=== PATIENT | female | born 1975 | race African-American/Black ===

== ENCOUNTER 2022-02-28 11:30 | Observation (INO) | payer OTHER ==
[2022-02-28] MEDS ORDERED: NITROGLYCERIN SL TABS 0.4 MG TAB SUBLINGUAL STA (11:41)
[2022-02-28] MEDS ORDERED: SODIUM CHLORIDE 0.9% 500 ML 500 ML IV STA (11:42)
--- NOTE | 2022-02-28 11:58 | XR ---
EXAMINATION TYPE: XR chest 1V DATE OF EXAM: 02/28/2022 COMPARISON: NONE HISTORY: Chest pain TECHNIQUE: Single frontal view of the chest is obtained. FINDINGS: There is left lower lobe infiltrate noted. Correlate for underlying pneumonia. Possible small effusio n noted as well. The cardiac silhouette size is within normal limits. The osseous structures are intact. IMPRESSION: 1. Correlate for left lower lobe infiltrate.
[2022-02-28 12:32] LABS: Basophils # (A) 0.1 k/uL (0-0.2); Basophils % (A) 0 %; Eosinophils # (A) 0.2 k/uL (0-0.7); Eosinophils % (A) 1 %; HGB 11.7 gm/dL (11.4-16.0); Hypochromasia Moderate; Lymphocytes # (A) 1.6 k/uL (1.0-4.8); Lymphocytes % (A) 8 %; MCV 93.2 fL (80.0-100.0); Mean Platelet Volume 6.8; Monocytes # (A) 1.2 k/uL (0-1.0); Monocytes % (A) 5 %; Neutrophils # (A) 18.1 k/uL (1.3-7.7); Neutrophils % (A) 85 %; Platelet Count 432 k/uL (150-450); RBC 4.19 m/uL (3.80-5.40); RDW 14.8 % (11.5-15.5); WBC 21.2 k/uL (3.8-10.6)
[2022-02-28 12:50] LABS: Prothrombin Time 10.4 sec (9.0-12.0)
[2022-02-28 13:18] LABS: ALT 21 U/L (4-34); African American GFR (CKD) >90 (>60 ml/min/1.73 sqM); Albumin 3.9 g/dL (3.5-5.0); Anion Gap 10 mmol/L; Blood Urea Nitrogen 11 mg/dL (7-17); Calcium 8.9 mg/dL (8.4-10.2); Carbon Dioxide 24 mmol/L (22-30); Chloride 98 mmol/L (98-107); Glucose 88 mg/dL (74-99); Non-African American GFR(CKD) >90 (>60 ml/min/1.73 sqM); Sodium 132 mmol/L (137-145); Total Bilirubin 0.9 mg/dL (0.2-1.3); Total Protein 6.8 g/dL (6.3-8.2)
[2022-02-28] MEDS ORDERED: MORPHINE SULFATE 4 MG/ML SYRINGE IVP STA (13:24)
[2022-02-28 13:30] LABS: AST 26 U/L (14-36); Magnesium 1.9 mg/dL (1.6-2.3); Potassium 4.8 mmol/L (3.5-5.1)
[2022-02-28 13:31] LABS: Alkaline Phosphatase 67 U/L (38-126)
--- NOTE | 2022-02-28 13:31 | ED ---
General Adult HPI - General Chief complaint: Chest Pain Stated complaint: Chest pain Time Seen by Provider: 02/28/22 11:32 Source: patient, EMS, RN notes reviewed, old records reviewed Mode of arrival: EMS Limitations: no limitations - History of Present Illness Initial comments: Patient is a 47-year-old female who presents emergency department with rec urrence of a somewhat chronic chest pain. Patient states that she experienced this chest pain previously last month. Was admitted to [facility] and received multiple workups. Ultimately diagnosed with pneumonia and discharged home. States she had a cardiac echo at that time and they looked for a blood clot in her lung, all of which were negative. States the pain mostly when away, however last night she began experiencing similar pain. It is achy in nature, located over the left side of her chest with some mild radiation to left shoulder, all chronic for the patient and typical for when she expenses pain previously. She received multiple nitroglycerin tablets from EMS, she states it was initially an 8 out of 10 and it remains an 8 out of 10. States it is been like this mostly since the middle of the night. Denies any associated shortness of breath, cough, nausea, vomiting, sick contacts. His no fevers. Has no other acute complaints at this time. Presents over concern for her recurrence of her chest pain that was thoroughly worked up in the outpatient facility last month. - Related Data Home Medications Medication Instructions Recorded Confirmed oxyCODONE HCL/ACETAMINOPHEN 1 tab PO TID PRN 02/28/22 02/28/22 [Percocet 10-325 mg] Allergies Allergy/AdvReac Type Severity Reaction Status Date / Time codeine AdvReac Nausea & Verified 02/28/22 12:31 Vomiting Review of Systems ROS Statement: Those systems with pertinent positive or pertinent negative responses have been documented in the HPI. Review of Systems: CONST: Denies fever EYES: Denies blurry vision ENT: Denies nasal congestion C/V: Endorses chest pain RESP: Denies shortness of breath GI: Denies abdominal pain : Denies dysuria SKIN: Denies rash. MSK: Denies joint pain. NEURO: Denies headache ROS Other: All systems not noted in ROS Statement are negative. Past Medical History Past Medical History: Asthma Additional Past Medical History / Comment(s): Asthma, pneumonia Additional Past Surgical History / Comment(s): Hernia surgery, gastric sleeve, tummy tuck, Past Psychological History: No Psychological Hx Reported Smoking Status: Never smoker Past Alcohol Use History: Occasional Past Drug Use History: None Reported General Exam - General Exam Comments Initial Comments: General: Appears in no acute distress. HEAD: Normal with no signs of head trauma. EYES: PERRLA, EOMI, conjunctiva normal, no discharge. ENT: Hearing grossly intact, normal oropharynx. RESPIRATORY: Clear breath sounds bilaterally. No wheezes, rales, or rhonchi. C/V: Tachycardic with a regular rhythm. S1 and S2 auscultated, no edema, peripheral pulses 2+ and intact throughout. Chest pain nonreproducible on palpation. ABD: Abd is soft, nontender, nondistended EXT: Normal range of motion, no obvious deformity SKIN: No rashes or lesions observed on exposed skin. NEURO: Alert and oriented x 4. Cranial nerves II-XII intact. No focal sensory or strength deficits. 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 She was eventually diagnosed with left-sided pneumonia. Sent home on steroids. States her pain did improve, however it returned last night. I discussed with her I would like to obtain cardiac workup. She is a history of elevated d-dimer, and I would like to obtain a CT PE to rule out pulmonary embolism over concern for her tachycardia and her chest pain. She was in agreement with this plan. Patient received 2 nitro prior to arrival and chest pain is unchanged. Third nitro was administered and chest pain also remains unchanged at this time. Aspirin was administered en route, 324mg. She was in agreement with this plan. Vital signs are within normal limits. EKG shows no signs of acute ischemia, shows benign early repol.Chest x-ray shows findings concerning for a left lower lobe pneumonia. Laboratory studies are remarkable for leukocytosis of 21, likely secondary to recent steroid use as she stopped 1 or 2 days ago. Troponin is undetectable. Remainder of the labs are unremarkable.CT angiogram of the chest showed no pulmonary embolism. There are bilateral pleural effusions as well as possible small left lower lobe infiltrate. Is also small pericardial effusion. On reevaluation, patient is improved. Chest pain is nearly resolved following morphine administration. I did discuss with her the results of her laboratory studies and imaging. Like to admitted to the hospital for further monitoring. We were able to obtain records from the outside facility, [facility] and EKG is similar to that presentation as well. She was in agreement this plan. Vital signs remained within normal limits. Cardiology will be consulted.Patient has no symptoms of pneumonia. Is not short of breath. Is not coughing. No fevers. I will not treat within about accept this time. Leukocytosis is likely secondary to her recent steroid usage. We'll continue to monitor. I spoke with observation on-call, Dr. Sosa was in agreement with the plan and accepted the patient. Patient was admitted to observation telemetry in stable condition. - Lab Data Result diagrams: 02/28/22 12:11 02/28/22 12:55 Lab Results 02/28/22 02/28/22 02/28/22 Range/Units 12:11 12:11 12:11 WBC 21.2 H (3.8-10.6) k/uL RBC 4.19 (3.80-5.40) m/uL Hgb 11.7 (11.4-16.0) gm/dL Hct 39.0 (34.0-46.0) % MCV 93.2 (80.0-100.0) fL MCH 28.0 (25.0-35.0) pg MCHC 30.0 L (31.0-37.0) g/dL RDW 14.8 (11.5-15.5) % Plt Count 432 (150-450) k/uL MPV 6.8 Neutrophils % 85 % Lymphocytes % 8 % Monocytes % 5 % Eosinophils % 1 % Basophils % 0 % Neutrophils # 18.1 H (1.3-7.7) k/uL Lymphocytes # 1.6 (1.0-4.8) k/uL Monocytes # 1.2 H (0-1.0) k/uL Eosinophils # 0.2 (0-0.7) k/uL Basophils # 0.1 (0-0.2) k/uL Hypochromasia Moderate PT 10.4 (9.0-12.0) sec INR 1.0 (<1.2) APTT 24.0 (22.0-30.0) sec D-Dimer 0.70 H (<0.60) mg/L FEU Sodium (137-145) mmol/L Potassium (3.5-5.1) mmol/L Chloride (98-107) mmol/L Carbon Dioxide (22-30) mmol/L Anion Gap mmol/L BUN (7-17) mg/dL Creatinine (0.52-1.04) mg/dL Est GFR (CKD-EPI)AfAm (>60 ml/min/1.73 sqM) Est GFR (CKD-EPI)NonAf (>60 ml/min/1.73 sqM) Glucose (74-99) mg/dL Calcium (8.4-10.2) mg/dL Magnesium (1.6-2.3) mg/dL Total Bilirubin (0.2-1.3) mg/dL AST (14-36) U/L ALT (4-34) U/L Alkaline Phosphatase (38-126) U/L Troponin I (0.000-0.034) ng/mL Total Protein (6.3-8.2) g/dL Albumin (3.5-5.0) g/dL 02/28/22 02/28/22 Range/Units 12:55 12:55 WBC (3.8-10.6) k/uL RBC (3.80-5.40) m/uL Hgb (11.4-16.0) gm/dL Hct (34.0-46.0) % MCV (80.0-100.0) fL MCH (25.0-35.0) pg MCHC (31.0-37.0) g/dL RDW (11.5-15.5) % Plt Count (150-450) k/uL MPV Neutrophils % % Lymphocytes % % Monocytes % % Eosinophils % % Basophils % % Neutrophils # (1.3-7.7) k/uL Lymphocytes # (1.0-4.8) k/uL Monocytes # (0-1.0) k/uL Eosinophils # (0-0.7) k/uL Basophils # (0-0.2) k/uL Hypochromasia PT (9.0-12.0) sec INR (<1.2) APTT (22.0-30.0) sec D-Dimer (<0.60) mg/L FEU Sodium 132 L (137-145) mmol/L Potassium 4.8 (3.5-5.1) mmol/L Chloride 98 (98-107) mmol/L Carbon Dioxide 24 (22-30) mmol/L Anion Gap 10 mmol/L BUN 11 (7-17) mg/dL Creatinine 0.62 (0.52-1.04) mg/dL Est GFR (CKD-EPI)AfAm >90 (>60 ml/min/1.73 sqM) Est GFR (CKD-EPI)NonAf >90 (>60 ml/min/1.73 sqM) Glucose 88 (74-99) mg/dL Calcium 8.9 (8.4-10.2) mg/dL Magnesium 1.9 (1.6-2.3) mg/dL Total Bilirubin 0.9 (0.2-1.3) mg/dL AST 26 (14-36) U/L ALT 21 (4-34) U/L Alkaline Phosphatase 67 (38-126) U/L Troponin I <0.012 (0.000-0.034) ng/mL Total Protein 6.8 (6.3-8.2) g/dL Albumin 3.9 (3.5-5.0) g/dL - EKG Data -: EKG Interpreted by Me EKG Comments: 12-lead Electrocardiogram Interpretation Note EKG was reviewed and interpreted by myself. 12-lead ECG performed at 1131 is interpreted by me as revealing sinus tachycardia at a rate of 114 beats per minute. [place] is normal. VA interval is 112 ms, QRS duration is 76 ms, QTc is 377 ms.. Very subtle J-point elevation noted in V2, V3. Likely benign early re-pole. No reciprocal changes appreciated.. R wave progression across the precordium was satisfactory. By my interpretation this EKG is non-diagnostic for acute ischemia. No prior EKG for comparison. Disposition Clinical Impression: Chest pain, Pleural effusion Disposition: ADMITTED IP TO THIS HOSP Condition: Stable Referrals: None,Stated [Primary Care Provider] - 1-2 days Time of Disposition: 13:35
--- NOTE | 2022-02-28 13:44 | CT ---
EXAMINATION TYPE: CT chest angio for PE DATE OF EXAM: 02/28/2022 COMPARISON: HISTORY: chest pain CT DLP: 248.7 mGycm CONTRAST: CT chest with contrast and 3D reconstruction with MIP imaging is performed with IV Contrast, patient injected with 55cc mL of Isovue 370. Contrast-enhanced CT of the chest was performed through the course of the pulmonary arteries with arya g and mediastinal window settings submitted. 3D reconstruction with MIP imaging was also performed. PULMONARY ARTERIES: The pulmonary arteries and their major tributaries are patent. I do not see brigid dence for sizable filling defect to suggest pulmonary embolic process. LUNGS: Left basilar pleural effusion measuring 2.9 cm AP dimension. Basilar atelectasis noted bilater ally left greater than right. Small left lower lobe infiltrate difficult to exclude. Tiny right-sided pleural effusion noted as well. MEDIASTINUM: Thoracic aorta is of normal caliber. Small pericardial effusion measuring 6 mm. the hea rt is not enlarged. No evidence for mediastinal mass. No mediastinal lymph nodes greater than 1cm. HILAR STRUCTURES: No evidence for mass. No hilar lymph nodes greater than 1 cm. UPPER ABDOMEN: No significant abnormality is seen. IMPRESSION: 1. No evidence for Pulmonary embolism at this time. 2. Left greater than right pleural effusion with basilar compressive atelectasis. Small left lower lo be infiltrate difficult to exclude. 3. Small pericardial effusion.
[2022-02-28] MEDS ORDERED: NALOXONE 0.4 MG/ML 1 ML VIAL IV PRN (14:44)
[2022-02-28] MEDS: HEPARIN SODIUM,PORCINE/PF 5,000 UNIT/0.5 ML SYRINGE SQ SCH (16:24)
--- NOTE | 2022-02-28 16:45 | P.HPIM ---
History of Present Illness H&P Date: 02/28/22 Patient is a 47-year-old female with PMH of asthma who presents the ED for chest pain. Patient reports chest pain described as someone "stomping on my chest". Pain is aggravated with leaning forward and bending over to pick something up. Pain is also aggravated with deep inspiration and palpation of her chest wall. Chest pain is left-sided and radiates to the left shoulder. She describes the pain is constant in nature. Patient was previously seen and admitted at [facility] in mid-January and [facility] on February 11 for similar complaints. She was diagnosed with pneumonia and pericarditis. She was discharged home on levofloxacin and prednisone to complete a total of 14 days. She does report that her chest pain initially improved while taking prednisone but got worse near the end of her completion date. She denies any history of autoimmune disorders. She denies any headache, lower extremity edema, cough, shortness of breath, palpitations, changes in urination or bowel habits. No changes in appetite or weight. She denies any dizziness, numbness/weakness/tingling of the extremities. No history of UT or CVA. In the ED, vital signs were stable. She was noted to be tachycardic with heart rate in the low 100s. CBC showed leukocytosis of 21.2 with neutrophilia. D-dimer was 0.7. CMP showed sodium of 132. Troponin was less than 0.0122 with EKG showing sinus tachycardia and ST elevation in all leads. Review of systems was performed and is negative except above. General: non toxic, no distress, appears at stated age Derm: warm, dry Head: atraumatic, normocephalic, symmetric Eyes: EOMI, no lid lag, anicteric sclera Mouth: no lip lesion, mucus membranes moist Cardiovascular: S1S2 reg, no murmur, positive posterior tibial pulse bilateral, Lungs: Decreased breath sounds bilateral, no rhonchi, no rales , no accessory muscle use Abdominal: soft, nontender to palpation, no guarding, no appreciable organomegaly Ext: no gross muscle atrophy, no edema, no contractures Neuro: CN II-XI grossly intact, no focal neuro deficits Psych: Alert, oriented, appropriate affect #Acute pericarditis #Pericardial effusion #Pleural effusion #Pneumonia #Leukocytosis #Hyponatremia #Elevated d-dimer Chronic conditions: Asthma Patient's EKG and symptoms is consistent with acute pericarditis. She was previously treated with prednisone 20 mg by mouth daily for 14 days. Troponins will be trended and ACS will be ruled out. Echocardiogram will be ordered. Richard faina will be placed on telemetry monitoring. Patient will be started on prednisone 40 mg by mouth daily along with colchicine 0.6 mg by mouth twice a day. Pain will be controlled with Toradol 15 mg by mouth every 6 hours as needed. ESR and CRP will be obtained. Cardiology will be consulted for further management of this patient. Patient was previously diagnosed with pneumonia at [facility]. She has completed a course of Levaquin. Her leukocytosis is likely steroid-induced. Hyponatremia possibly related to dehydration. She has received 1 L bolus in the ED. CTA chest has ruled out PE. DVT prophylaxis: Heparin Discussed with: Patient, ED physician and nurse Anticipated discharge: 1-[address]: Home A total of 30 minutes was spent on the care of this complex patient more than 50% of the time was spent in counseling and care coordination. Patient names her kenneth decision-maker if she can't make decisions for herself. Patient would like to be full code. Past Medical History Past Medical History: Asthma Additional Past Medical History / Comment(s): Asthma, pneumonia History of Any Multi-Drug Resistant Organisms: None Reported Additional Past Surgical History / Comment(s): Hernia surgery, gastric sleeve, tummy tuck, right ankle surgery Past Psychological History: No Psychological Hx Reported Smoking Status: Never smoker Past Alcohol Use History: Occasional Past Drug Use History: None Reported Medications and Allergies Home Medications Medication Instructions Recorded Confirmed Type oxyCODONE HCL/ACETAMINOPHEN 1 tab PO TID PRN 02/28/22 02/28/22 History [Percocet 10-325 mg] Allergies Allergy/AdvReac Type Severity Reaction Status Date / Time codeine AdvReac Nausea & Verified 02/28/22 12:31 Vomiting Physical Exam Vitals: Vital Signs Temp Pulse Pulse Resp BP Pulse Ox 02/28/22 13:46 102 H 18 129/67 99 02/28/22 12:53 105 H 18 108/73 99 02/28/22 12:17 106 H 18 130/73 99 02/28/22 11:44 106 H 02/28/22 11:32 98.2 F 115 H 18 111/74 100 Intake and Output 02/28/22 02/28/22 02/28/22 06:59 14:59 22:59 Other: Weight 72.575 kg Results CBC & Chem 7: 02/28/22 12:11 02/28/22 12:55 Labs: Abnormal Lab Results - Last 24 Hours (Table) 02/28/22 02/28/22 02/28/22 Range/Units 12:11 12:11 12:55 WBC 21.2 H (3.8-10.6) k/uL MCHC 30.0 L (31.0-37.0) g/dL Neutrophils # 18.1 H (1.3-7.7) k/uL Monocytes # 1.2 H (0-1.0) k/uL D-Dimer 0.70 H (<0.60) mg/L FEU Sodium 132 L (137-145) mmol/L Thrombosis Risk Factor Assmnt - Choose All That Apply Each Factor Represents 1 point: Age 41-60 years Thrombosis Risk Factor Assessment Total Risk Factor Score: 1 Thrombosis Risk Factor Assessment Level: Low Risk
[2022-02-28] MEDS: KETOROLAC 15 MG/ML 1 ML VIAL IVP SCH (17:17)
[2022-02-28] MEDS: predniSONE 20 MG TAB PO SCH (17:18)
[2022-02-28] MEDS: MORPHINE SULFATE 4 MG/ML SYRINGE IV PRN (17:20)
[2022-02-28] MEDS: COLCHICINE 0.6 MG EACH PO SCH (20:25)
[2022-03-01] MEDS: HEPARIN SODIUM,PORCINE/PF 5,000 UNIT/0.5 ML SYRINGE SQ SCH ×3 (00:07→15:30)
[2022-03-01] MEDS: KETOROLAC 15 MG/ML 1 ML VIAL IVP SCH ×4 (00:07→17:20)
[2022-03-01] MEDS: MORPHINE SULFATE 4 MG/ML SYRINGE IV PRN (00:10)
[2022-03-01] MEDS: COLCHICINE 0.6 MG EACH PO SCH ×2 (07:26→20:27)
[2022-03-01] MEDS: predniSONE 20 MG TAB PO SCH (07:26)
--- NOTE | 2022-03-01 08:34 | P.CRDCN ---
History of Present Illness Consult date: 03/01/22 Chief complaint: CP History of present illness: This is a pleasant 47-year-old [place] female patient with a past medical history significant for recently diagnosed was with pericarditis treated with prednisone presented to the hospital complaining of chest discomfort. She stated after she finished the prednisone a week after she started experiencing discomfort. The discomfort is in the middle of the chest as a sharp kind of discomfort with some radiation to the arm with no associated symptoms of shortness of breath or dizziness or lightheadedness or any fever or chills. The discomfort is worse with deep breath and better was leaning forward. She underwent a workup including EKG showed sinus rhythm was some ST changes concerning for pericarditis beach she also underwent cardiac enzymes came in to be unremarkable. The chest x-ray came in to be unremarkable. D-dimer came in to be abnormal but subsequent CT of the chest showed no evidence of pulmonary arteries and but it showed bilateral pleural effusion. The patient was admitted to the hospital yesterday and she was started on colchicine which I would agree. I'm going to obtain a limited echocardiogram to rule out any pericardial effusion. Meanwhile I would advise monitor the patient for additional 24 hours Past Medical History Past Medical History: Asthma Additional Past Medical History / Comment(s): Asthma, pneumonia History of Any Multi-Drug Resistant Organisms: None Reported Additional Past Surgical History / Comment(s): Hernia surgery, gastric sleeve, tummy tuck, right ankle surgery Past Psychological History: No Psychological Hx Reported Smoking Status: Never smoker Past Alcohol Use History: Occasional Past Drug Use History: None Reported Medications and Allergies Home Medications Medication Instructions Recorded Confirmed Type oxyCODONE HCL/ACETAMINOPHEN 1 tab PO TID PRN 02/28/22 02/28/22 History [Percocet 10-325 mg] Allergies Allergy/AdvReac Type Severity Reaction Status Date / Time codeine AdvReac Nausea & Verified 02/28/22 12:31 Vomiting Physical Exam Vitals: Vital Signs Temp Pulse Pulse Resp BP BP Pulse Ox 03/01/22 07:00 98.1 F 91 16 90/61 100 03/01/22 03:59 97.6 F 94 16 114/73 99 02/28/22 19:21 98.0 F 109 H 18 93/59 99 02/28/22 17:32 98.7 F 82 18 113/79 90 L 02/28/22 13:46 102 H 18 129/67 99 02/28/22 12:53 105 H 18 108/73 99 02/28/22 12:17 106 H 18 130/73 99 02/28/22 11:44 106 H 02/28/22 11:32 98.2 F 115 H 18 111/74 100 Intake and Output 02/28/22 03/01/22 03/01/22 22:59 06:59 14:59 Intake Total 120 Balance 120 Intake: Oral 120 Other: # Voids 1 1 - Constitutional General appearance: no acute distress - Respiratory Respiratory: bilateral: CTA - Cardiovascular Rhythm: regular Heart sounds: normal: S1, S2 Results 02/28/22 12:11 02/28/22 12:55 Cardiac Enzymes 02/28/22 02/28/22 02/28/22 Range/Units 12:55 12:55 15:27 AST 26 (14-36) U/L Troponin I <0.012 <0.012 (0.000-0.034) ng/mL 02/28/22 Range/Units 18:23 AST (14-36) U/L Troponin I <0.012 (0.000-0.034) ng/mL Coagulation 02/28/22 Range/Units 12:11 PT 10.4 (9.0-12.0) sec APTT 24.0 (22.0-30.0) sec CBC 02/28/22 Range/Units 12:11 WBC 21.2 H (3.8-10.6) k/uL RBC 4.19 (3.80-5.40) m/uL Hgb 11.7 (11.4-16.0) gm/dL Hct 39.0 (34.0-46.0) % Plt Count 432 (150-450) k/uL Comprehensive Metabolic Panel 02/28/22 Range/Units 12:55 Sodium 132 L (137-145) mmol/L Potassium 4.8 (3.5-5.1) mmol/L Chloride 98 (98-107) mmol/L Carbon Dioxide 24 (22-30) mmol/L BUN 11 (7-17) mg/dL Creatinine 0.62 (0.52-1.04) mg/dL Glucose 88 (74-99) mg/dL Calcium 8.9 (8.4-10.2) mg/dL AST 26 (14-36) U/L ALT 21 (4-34) U/L Alkaline Phosphatase 67 (38-126) U/L Total Protein 6.8 (6.3-8.2) g/dL Albumin 3.9 (3.5-5.0) g/dL Current Medications Generic Name Dose Route Start Last Admin Trade Name Freq PRN Reason Stop Dose Admin Colchicine 0.6 mg 02/28/22 21:00 03/01/22 07:26 Colchicine 0.6 Mg Each PO 0.6 mg BID YASMANY Administration Heparin Sodium (Porcine) 5,000 unit 02/28/22 16:00 03/01/22 07:26 Heparin Sodium,Porcine/Pf 5,000 Unit/0.5 Ml Syringe SQ 5,000 unit Q8HR YASMANY Administration Ketorolac Tromethamine 15 mg 02/28/22 18:00 03/01/22 05:29 Ketorolac 15 Mg/Ml 1 Ml Vial IVP 03/03/22 16:39 15 mg Q6HR YASMANY Administration Morphine Sulfate 4 mg 02/28/22 14:44 03/01/22 00:10 Morphine Sulfate 4 Mg/Ml Syringe IV 4 mg Q4HR PRN Administration Severe Pain (Scale 7 to 10) Naloxone HCl 0.2 mg 02/28/22 14:44 Naloxone 0.4 Mg/Ml 1 Ml Vial IV Q2M PRN Opioid Reversal Prednisone 40 mg 02/28/22 16:45 03/01/22 07:26 Prednisone 20 Mg Tab PO 40 mg DAILY YASMANY Administration Intake and Output 02/28/22 03/01/22 03/01/22 22:59 06:59 14:59 Intake Total 120 Balance 120 Intake: Oral 120 Other: # Voids 1 1 02/28/22 12:11 02/28/22 12:55 Assessment and Plan Assessment: Assessment Recurrent pericarditis Plan Agree about starting the patient on colchicine Obtain a limited echo Monitor the patient for additional 24
[2022-03-01] MEDS: MORPHINE SULFATE 2 MG/ML SYRINGE IV PRN ×3 (09:44→22:37)
[2022-03-01 10:05] LABS: African American GFR (CKD) 122.8 (60.0-200.0); Anion Gap 10.2 mmol/L (10.00-18.00); BUN/Creat Ratio 20.47 Ratio (12.00-20.00); Blood Urea Nitrogen 13.2 mg/dL (9.0-27.0); Calcium 9.3 mg/dL (8.7-10.3); Carbon Dioxide 21.8 mmol/L (20.0-27.5); Potassium 4.5 mmol/L (3.5-5.5)
[2022-03-01 10:06] LABS: Basophils # (A) 0.03 X 10*3/uL (0.00-0.10); Basophils % (A) 0.1 %; Eosinophils # (A) 0 X 10*3/uL (0.04-0.35); Eosinophils % (A) 0 %; HCT 34.5 % (37.2-46.3); HGB 10.9 g/dL (12.0-15.0); Immature Grans, Automated 0.7 %; Lymphocytes % (A) 5.2 %; MCH 28.8 pg (27.0-32.0); MCHC 31.6 g/dL (32.0-37.0); Mean Platelet Volume 9.5 fL (9.5-12.2); Monocytes # (A) 0.75 X 10*3/uL (0.20-1.00); Monocytes % (A) 3.6 %; NRBC Per 100 WBC 0 /100 WBCS (0.0-0.0); Neutrophils # (A) 18.98 X 10*3/uL (1.80-7.70); Neutrophils % (A) 90.4 %; Platelet Count 418 X 10*3/uL (140-440); RBC 3.79 X 10*6/uL (4.10-5.20); RDW 15.3 % (11.5-14.5); WBC 21.01 X 10*3/uL (4.50-10.00)
[2022-03-01 11:07] LABS: Erythrocyte Sedimentation Rate 91 mm/Hr (0-20)
--- NOTE | 2022-03-01 14:26 | P.PN ---
Subjective Progress Note Date: 03/01/22 Patient was seen and examined. No acute events overnight. Patient reports slight improvement in her chest pain. Pain is 6 out of 10 in severity. General: non toxic, no distress, appears at stated age Derm: warm, dry Head: atraumatic, normocephalic, symmetric Eyes: EOMI, no lid lag, anicteric sclera Mouth: no lip lesion, mucus membranes moist Cardiovascular: S1S2 reg, no murmur, positive posterior tibial pulse bilateral, Lungs: Decreased breath sounds bilateral, no rhonchi, no rales , no accessory muscle use Abdominal: soft, nontender to palpation, no guarding, no appreciable organomegaly Ext: no gross muscle atrophy, no edema, no contractures Neuro: CN II-XI grossly intact, no focal neuro deficits Psych: Alert, oriented, appropriate affect #Acute pericarditis #Pericardial effusion #Pleural effusion #Pneumonia #Leukocytosis #Hyponatremia #Elevated d-dimer Chronic conditions: Asthma Patient's EKG and symptoms is consistent with acute pericarditis. She was previously treated with prednisone 20 mg by mouth daily for 14 days. ACS ruled out. Echocardiogram pending. Patient will be placed on telemetry monitoring. Patient will be started on prednisone 40 mg by mouth daily along with colchicine 0.6 mg by mouth twice a day. Pain will be controlled with Toradol 15 mg by mouth every 6 hours as needed. ESR and CRP elevated. Cardiology will be consulted for further management of this patient. Patient was previously diagnosed with pneumonia at [facility]. She has completed a course of Levaquin. Her leukocytosis is likely steroid-induced. Hyponatremia possibly related to dehydration. She has received 1 L bolus in the ED. CTA chest has ruled out PE. DVT prophylaxis: Heparin Case discussed with cardiology team. Plans to observe overnight. Anticipate DC home tomorrow. Objective - Vital Signs Vital signs: Vital Signs Temp 98.1 F 03/01/22 07:00 Pulse 91 03/01/22 07:00 Resp 16 03/01/22 07:00 BP 90/61 03/01/22 07:00 Pulse Ox 100 03/01/22 07:00 FiO2 Intake & Output 02/28/22 03/01/22 03/01/22 18:59 06:59 18:59 Intake Total 120 Balance 120 Weight 72.575 kg Intake: Oral 120 Other: # Voids 1 2 - Labs CBC & Chem 7: 03/01/22 05:08 03/01/22 05:08 Labs: Abnormal Lab Results - Last 24 Hours (Table) 03/01/22 03/01/22 Range/Units 05:08 05:08 WBC 21.01 H (4.50-10.00) X 10*3/uL RBC 3.79 L (4.10-5.20) X 10*6/uL Hgb 10.9 L (12.0-15.0) g/dL Hct 34.5 L (37.2-46.3) % MCHC 31.6 L (32.0-37.0) g/dL RDW 15.3 H (11.5-14.5) % Immature Gran # 0.15 H (0.00-0.04) X 10*3/uL Neutrophils # 18.98 H (1.80-7.70) X 10*3/uL Eosinophils # 0 L (0.04-0.35) X 10*3/uL ESR 91 H (0-20) mm/Hr BUN/Creatinine Ratio 20.47 H (12.00-20.00) Ratio Glucose 147 H (70-110) mg/dL C-Reactive Protein 17.00 H (0.00-0.80) mg/dL
[2022-03-02] MEDS: HEPARIN SODIUM,PORCINE/PF 5,000 UNIT/0.5 ML SYRINGE SQ SCH ×2 (00:32→07:45)
[2022-03-02] MEDS: KETOROLAC 15 MG/ML 1 ML VIAL IVP SCH ×2 (00:32→06:01)
[2022-03-02 06:32] VITALS: PULSE 80; TEMP 98.2
[2022-03-02] MEDS: COLCHICINE 0.6 MG EACH PO SCH (07:45)
[2022-03-02] MEDS: MORPHINE SULFATE 2 MG/ML SYRINGE IV PRN ×2 (07:45→10:52)
[2022-03-02] MEDS: predniSONE 20 MG TAB PO SCH (07:45)
[2022-03-02 08:15] VITALS: BP 100/71; RESP 18
--- NOTE | 2022-03-02 08:37 | P.DS ---
Providers Date of admission: 02/28/22 14:44 Expected date of discharge: 03/02/22 Attending physician: Anila Brewster MD Consults: 02/28/22 14:44 Consult Physician Routine Consulting Provider: [facility] Consult Reason/Comments: chest pain Do you want consulting provider notified?: Yes Primary care physician: Stated None Hospital Course: Patient is a 47-year-old female with PMH of asthma who presents the ED for chest pain. Patient reports chest pain described as someone "stomping on my chest". Pain is aggravated with leaning forward and bending over to pick something up. Pain is also aggravated with deep inspiration and palpation of her chest wall. Chest pain is left-sided and radiates to the left shoulder. She describes the pain is constant in nature. Patient was previously seen and admitted at [facility] in mid-January and [facility] on February 11 for similar complaints. She was diagnosed with pneumonia and pericarditis. She was discharged home on levofloxacin and prednisone to complete a total of 14 days. She does report that her chest pain initially improved while taking prednisone but got worse near the end of her completion date. She denies any history of autoimmune disorders. She denies any headache, lower extremity edema, cough, shortness of breath, palpitations, changes in urination or bowel habits. No changes in appetite or weight. She denies any dizziness, numbness/weakness/tingling of the extremities. No history of AK or CVA. In the ED, vital signs were stable. She was noted to be tachycardic with heart rate in the low 100s. CBC showed leukocytosis of 21.2 with neutrophilia. D-dimer was 0.7. CMP showed sodium of 132. Troponin was less than 0.0122 with EKG showing sinus tachycardia and ST elevation in all leads. Troponins were trended and ACS was ruled out. Patient was started on prednisone 40 mg by mouth daily. She was started on colchicine 0.6 mg by mouth twice a day. Toradol was used as needed for pain. ESR and CRP was elevated. Echocardiogram was taken and read was pending at the time of this note. Cardiology was consulted and agreed with the management. Patient was seen and examined on 03/02/2022. She reported significant improvement in her chest pain. She is advised to continue prednisone for 2 weeks. She is advised to taper prednisone after 2 weeks and to follow-up with PCP for tapering instructions. She is also advised to continue colchicine for up to 3 months. She is advised to follow-up with her sheet finisher appointment at [facility] as scheduled. General: non toxic, no distress, appears at stated age Derm: warm, dry Head: atraumatic, normocephalic, symmetric Eyes: EOMI, no lid lag, anicteric sclera Mouth: no lip lesion, mucus membranes moist Cardiovascular: S1S2 reg, no murmur, positive posterior tibial pulse bilateral, Lungs: Decreased breath sounds bilateral, no rhonchi, no rales , no accessory muscle use Abdominal: soft, nontender to palpation, no guarding, no appreciable organomegaly Ext: no gross muscle atrophy, no edema, no contractures Neuro: CN II-XI grossly intact, no focal neuro deficits Psych: Alert, oriented, appropriate affect Discharge Diagnosis: #Acute pericarditis #Pericardial effusion #Pleural effusion #Pneumonia #Leukocytosis #Hyponatremia #Elevated d-dimer Chronic conditions: Asthma Pertinent Studies: Chest x-ray Chest CTA Echocardiogram Patient Condition at Discharge: Stable Plan - Discharge Summary New Discharge Prescriptions: New Ketorolac [Toradol] 10 mg PO Q6HR #30 tab Colchicine [Colcrys] 0.6 mg PO BID #60 each predniSONE [Deltasone] 40 mg PO DAILY #28 tab Continue oxyCODONE HCL/ACETAMINOPHEN [Percocet 10-325 mg] 1 tab PO TID PRN PRN Reason: Pain Discharge Medication List oxyCODONE HCL/ACETAMINOPHEN [Percocet 10-325 mg] 1 tab PO TID PRN 02/28/22 [History] Colchicine [Colcrys] 0.6 mg PO BID #60 each 03/02/22 [Rx] Ketorolac [Toradol] 10 mg PO Q6HR #30 tab 03/02/22 [Rx] predniSONE [Deltasone] 40 mg PO DAILY #28 tab 03/02/22 [Rx] Follow up Appointment(s)/Referral(s): None,Stated [Primary Care Provider] - 1-2 days Activity/Diet/Wound Care/Special Instructions: Diet: Regular Follow-up with your PCP within 1-2 days of discharge. Follow-up with the sheet finisher at [facility] with your scheduled appointment. Take all medications as advised. You'll need to taper your prednisone after 2 weeks. Do not stop abruptly. Please follow-up with your PCP for tapering instructions. Discharge Disposition: HOME SELF-CARE
--- NOTE | 2022-03-02 08:44 | P.PN ---
Subjective Progress Note Date: 03/02/22 Principal diagnosis: Pericarditis This is a pleasant 47-year-old [place] female patient with a past medical history significant for recently diagnosed was with pericarditis treated with prednisone presented to the hospital complaining of chest discomfort. She stated after she finished the prednisone a week after she started experiencing discomfort. The discomfort is in the middle of the chest as a sharp kind of discomfort with some radiation to the arm with no associated symptoms of shortness of breath or dizziness or lightheadedness or any fever or chills. The discomfort is worse with deep breath and better was leaning forward. She underwent a workup including EKG showed sinus rhythm was some ST changes concerning for pericarditis beach she also underwent cardiac enzymes came in to be unremarkable. The chest x-ray came in to be unremarkable. D-dimer came in t o be abnormal but subsequent CT of the chest showed no evidence of pulmonary arteries and but it showed bilateral pleural effusion. The patient was admitted to the hospital yesterday and she was started on colchicine which I would agree. I'm going to obtain a limited echocardiogram to rule out any pericardial effusion. Meanwhile I would advise monitor the patient for additional 24 hours March [id number] The patient was seen this morning. Her chest discomfort has improved significantly. She reports no shortness of breath and no dizziness or lightheadedness and no presyncope or syncope. She is hemodynamically stable. She underwent an limited echocardiogram which I will follow-up on. 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 Objective - Vital Signs Vital signs: Vital Signs Temp 98.2 F 03/02/22 07:00 Pulse 80 03/02/22 07:00 Resp 18 03/02/22 07:00 BP 100/71 03/02/22 07:00 Pulse Ox 99 03/02/22 07:00 FiO2 Intake & Output 03/01/22 03/02/22 03/02/22 18:59 06:59 18:59 Other: # Voids 1 1 - Constitutional General appearance: Present: no acute distress - Respiratory Respiratory: bilateral: CTA - Cardiovascular Rhythm: regular - Labs CBC & Chem 7: 03/01/22 05:08 03/01/22 05:08 Labs: Abnormal Lab Results - Last 24 Hours (Table) 09/17/22 09/17/22 Range/Units 05:08 05:08 WBC 21.01 H (4.50-10.00) X 10*3/uL RBC 3.79 L (4.10-5.20) X 10*6/uL Hgb 10.9 L (12.0-15.0) g/dL Hct 34.5 L (37.2-46.3) % MCHC 31.6 L (32.0-37.0) g/dL RDW 15.3 H (11.5-14.5) % Immature Gran # 0.15 H (0.00-0.04) X 10*3/uL Neutrophils # 18.98 H (1.80-7.70) X 10*3/uL Eosinophils # 0 L (0.04-0.35) X 10*3/uL ESR 91 H (0-20) mm/Hr BUN/Creatinine Ratio 20.47 H (12.00-20.00) Ratio Glucose 147 H (70-110) mg/dL C-Reactive Protein 17.00 H (0.00-0.80) mg/dL Assessment and Plan Assessment: Assessment Recurrent pericarditis Plan Agree about starting the patient on colchicine The patient can be discharged
--- NOTE | 2022-03-02 09:38 | CA ---
Transthoracic Echo Report Name: Cesar Malik Age: 47 Gender: F : 1975 Exam Date: 03/01/2022 10:32 Exam Location: [facility] Ht (in): 58 Wt (lb): 160 Ordering Physician: Jones Rosenthal MD ([id number]) Attending/Referring Phys: Grey Washer Amelie Harmon RDCS Procedure CPT: Indications: limited for pericarditis Cardiac Hx: Technical Quality: Good Contrast 1: Total Dose (mL): Contrast 2: Total Dose (mL): MEASUREMENTS (Male / Female) Normal Values 2D ECHO LV Diastolic Diameter PLAX 4.3 cm 4.2 - 5.9 / 3.9 - 5.3 cm LV Systolic Diameter PLAX 2.3 cm IVS Diastolic Thickness 0.9 cm 0.6 - 1.0 / 0.6 - 0.9 cm LVPW Diastolic Thickness 0.9 cm 0.6 - 1.0 / 0.6 - 0.9 cm LV Relative Wall Thickness 0.4 FINDINGS Left Ventricle Limited study. Normal Left ventricular size, wall thickness, systolic function with no obvious regional wall motion abnormalities. Normal Left ventricular diastolic filling pattern. Left ventricular ejection fraction is estimated at 55-60 %. Right Ventricle Right Atrium Left Atrium Mitral Valve Aortic Valve Tricuspid Valve Pulmonic Valve Pericardium No pericardial effusion, thickened pericardium. Aorta CONCLUSIONS Normal left ventricular dimension and systolic function No evidence of pericardial effusion Previewed by: Dr. Jones Rosenthal MD (Electronically Signed) Final Date: 02 March 2022 09:37
== END 2022-03-02 11:35 | disposition home or self-care (01) ==
LOC: EC 11:30 → 6NMEDSUR 14:44
PROVIDERS: ADMIT Family Medicine; ATTEND Family Medicine
DX: I30.9 Acute pericarditis, unspecified (principal); J18.9 Pneumonia, unspecified organism; E87.1 Hypo-osmolality and hyponatremia; J45.909 Unspecified asthma, uncomplicated; J98.11 Atelectasis; D72.829 Elevated white blood cell count, unspecified; R79.89 Other specified abnormal findings of blood chemistry; Z88.5 Allergy status to narcotic agent; Z87.01 Personal history of pneumonia (recurrent); Z98.84 Bariatric surgery status; Z98.890 Other specified postprocedural states
CPT/HCPCS: 96376 ×3; 96372 ×3; 96375; 96361; 96374; 99285; 36415; 93005; 93308; 85379; 80053; 80048; 85652; 83735; 84484; 85025 ×2; 85610; 85730; 86140; 71045; 71275; G0378 ×3; J2270 ×4; J1885 ×3; J7512 ×3; Q9967; J1644 ×3

== ENCOUNTER 2022-03-22 17:01 | Inpatient (IN) | payer OTHER ==
[2022-03-22] MEDS ORDERED: KETOROLAC 15 MG/ML 1 ML VIAL IVP STA (17:59)
--- NOTE | 2022-03-22 18:04 | ED ---
General Adult HPI - General Chief complaint: Chest Pain Stated complaint: chest pain Time Seen by Provider: 03/22/22 17:50 Source: patient, RN notes reviewed, old records reviewed Mode of arrival: ambulatory Limitations: no limitations - History of Present Illness Initial comments: 47-year-old female presents for evaluation of chest pain and left shoulder pain. Patient's symptoms have been present for the past several weeks but it worsened over the past 4 days. She was seen at this institution diagnosed with a pericarditis as well as pneumonia. Her symptoms persist. She reports fever. She reports mild dyspnea and pain that is worse with deep inspiration. She also reports that the pain is somewhat positional stating that any movement does make it worse. She denies fever. She denies a history of coronary artery disease. - Related Data Home Medications Medication Instructions Recorded Confirmed oxyCODONE HCL/ACETAMINOPHEN 1 tab PO TID PRN 02/28/22 02/28/22 [Percocet 10-325 mg] Previous Rx's Medication Instructions Recorded Colchicine [Colcrys] 0.6 mg PO BID #60 each 03/02/22 Ketorolac [Toradol] 10 mg PO Q6HR #30 tab 03/02/22 predniSONE [Deltasone] 40 mg PO DAILY #28 tab 03/02/22 Allergies Allergy/AdvReac Type Severity Reaction Status Date / Time codeine AdvReac Nausea & Verified 03/22/22 17:08 Vomiting Review of Systems ROS Statement: Those systems with pertinent positive or pertinent negative responses have been documented in the HPI. ROS Other: All systems not noted in ROS Statement are negative. Past Medical History Past Medical History: Asthma Additional Past Medical History / Comment(s): Asthma, pneumonia History of Any Multi-Drug Resistant Organisms: None Reported Additional Past Surgical History / Comment(s): Hernia surgery, gastric sleeve, tummy tuck, right ankle surgery Past Psychological History: No Psychological Hx Reported Smoking Status: Never smoker Past Alcohol Use History: Occasional Past Drug Use History: None Reported General Exam Limitations: no limitations General appearance: alert, in no apparent distress Head exam: Present: atraumatic, normocephalic Eye exam: Present: normal appearance, PERRL ENT exam: Present: normal exam Neck exam: Present: normal inspection. Absent: tenderness, meningismus Respiratory exam: Present: normal lung sounds bilaterally. Absent: respiratory distress, wheezes Cardiovascular Exam: Present: normal rhythm, tachycardia GI/Abdominal exam: Present: soft. Absent: distended, tenderness Extremities exam: Present: normal inspection Neurological exam: Present: alert, oriented X3, CN II-XII intact. Absent: motor sensory deficit Psychiatric exam: Present: normal affect, normal mood Skin exam: Present: warm, dry, intact. Absent: cyanosis, diaphoretic Course Vital Signs 03/22/22 17:08 Pulse Rate 116 H Respiratory 18 Rate Blood Pressure 121/81 O2 Sat by Pulse 91 L Oximetry EKG Findings - EKG Comments: EKG Findings:: EKG: Sinus tachycardia, AR depression which is best visualized in the precordial leads and lead 1 and 2. Rate of 107, AR interval 137, QRS duration 78, QTC 372 and do not see any ST segment elevation Medical Decision Making - Medical Decision Making 47-year-old female with chest pain for the past 4 days, history of pericarditis. Patient states her symptoms are worsened over the past several days. She has some associated dyspnea. Workup was initiated, EKG was sinus tachycardia with AR depression. Patient had chest x-ray performed which is negative. She had persistent leukocytosis, stable anemia. Her d-dimer was increased from prior at 1.2. CT angiography was performed again which was negative for pulmonary embolism. Patient had normal electrolytes. Negative coronavirus. Patient started on Motrin and colchicine. She will be admitted for repeat echo, serial cardiac enzymes. Case discussed with Dr. Prather. - Lab Data Result diagrams: 03/22/22 18:34 03/22/22 20:40 Lab Results 03/22/22 03/22/22 03/22/22 Range/Units 18:34 18:34 18:34 WBC 16.7 H (3.8-10.6) k/uL RBC 3.72 L (3.80-5.40) m/uL Hgb 10.9 L (11.4-16.0) gm/dL Hct 34.1 (34.0-46.0) % MCV 91.6 (80.0-100.0) fL MCH 29.3 (25.0-35.0) pg MCHC 31.9 (31.0-37.0) g/dL RDW 14.6 (11.5-15.5) % Plt Count 294 (150-450) k/uL MPV 7.6 Neutrophils % 82 % Lymphocytes % 11 % Monocytes % 5 % Eosinophils % 1 % Basophils % 0 % Neutrophils # 13.6 H (1.3-7.7) k/uL Lymphocytes # 1.8 (1.0-4.8) k/uL Monocytes # 0.8 (0-1.0) k/uL Eosinophils # 0.1 (0-0.7) k/uL Basophils # 0.1 (0-0.2) k/uL Hypochromasia Slight PT 10.2 (9.0-12.0) sec INR 0.9 (<1.2) APTT 23.3 (22.0-30.0) sec D-Dimer 1.13 H (<0.60) mg/L FEU Sodium (137-145) mmol/L Potassium (3.5-5.1) mmol/L Chloride (98-107) mmol/L Carbon Dioxide (22-30) mmol/L Anion Gap mmol/L BUN (7-17) mg/dL Creatinine (0.52-1.04) mg/dL Est GFR (CKD-EPI)AfAm (>60 ml/min/1.73 sqM) Est GFR (CKD-EPI)NonAf (>60 ml/min/1.73 sqM) Glucose (74-99) mg/dL Calcium (8.4-10.2) mg/dL Magnesium (1.6-2.3) mg/dL Total Bilirubin (0.2-1.3) mg/dL AST (14-36) U/L ALT (4-34) U/L Alkaline Phosphatase (38-126) U/L Total Protein (6.3-8.2) g/dL Albumin (3.5-5.0) g/dL Coronavirus (PCR) Not Detected (Not Detectd) 03/22/22 Range/Units 20:40 WBC (3.8-10.6) k/uL RBC (3.80-5.40) m/uL Hgb (11.4-16.0) gm/dL Hct (34.0-46.0) % MCV (80.0-100.0) fL MCH (25.0-35.0) pg MCHC (31.0-37.0) g/dL RDW (11.5-15.5) % Plt Count (150-450) k/uL MPV Neutrophils % % Lymphocytes % % Monocytes % % Eosinophils % % Basophils % % Neutrophils # (1.3-7.7) k/uL Lymphocytes # (1.0-4.8) k/uL Monocytes # (0-1.0) k/uL Eosinophils # (0-0.7) k/uL Basophils # (0-0.2) k/uL Hypochromasia PT (9.0-12.0) sec INR (<1.2) APTT (22.0-30.0) sec D-Dimer (<0.60) mg/L FEU Sodium 132 L (137-145) mmol/L Potassium 3.8 (3.5-5.1) mmol/L Chloride 100 (98-107) mmol/L Carbon Dioxide 23 (22-30) mmol/L Anion Gap 9 mmol/L BUN 9 (7-17) mg/dL Creatinine 0.56 (0.52-1.04) mg/dL Est GFR (CKD-EPI)AfAm >90 (>60 ml/min/1.73 sqM) Est GFR (CKD-EPI)NonAf >90 (>60 ml/min/1.73 sqM) Glucose 82 (74-99) mg/dL Calcium 8.7 (8.4-10.2) mg/dL Magnesium 2.1 (1.6-2.3) mg/dL Total Bilirubin 0.7 (0.2-1.3) mg/dL AST 17 (14-36) U/L ALT 20 (4-34) U/L Alkaline Phosphatase 69 (38-126) U/L Total Protein 6.1 L (6.3-8.2) g/dL Albumin 3.4 L (3.5-5.0) g/dL Coronavirus (PCR) (Not Detectd) Disposition Clinical Impression: Chest pain, Acute pericarditis Disposition: ADMITTED IP TO THIS [facility] Condition: Stable Is patient prescribed a controlled substance at d/c from ED?: No Referrals: Nonstaff,Physician [Primary Care Provider] - 1-2 days Time of Disposition: 21:13
[2022-03-22 18:48] LABS: Basophils # (A) 0.1 k/uL (0-0.2); Basophils % (A) 0 %; Eosinophils # (A) 0.1 k/uL (0-0.7); Eosinophils % (A) 1 %; HCT 34.1 % (34.0-46.0); HGB 10.9 gm/dL (11.4-16.0); Hypochromasia Slight; Lymphocytes # (A) 1.8 k/uL (1.0-4.8); Lymphocytes % (A) 11 %; MCH 29.3 pg (25.0-35.0); MCHC 31.9 g/dL (31.0-37.0); MCV 91.6 fL (80.0-100.0); Mean Platelet Volume 7.6; Monocytes # (A) 0.8 k/uL (0-1.0); Monocytes % (A) 5 %; Neutrophils # (A) 13.6 k/uL (1.3-7.7); Neutrophils % (A) 82 %; Platelet Count 294 k/uL (150-450); RBC 3.72 m/uL (3.80-5.40); RDW 14.6 % (11.5-15.5); WBC 16.7 k/uL (3.8-10.6)
[2022-03-22 19:01] LABS: INR 0.9 (<1.2); Partial Thromboplastin Time 23.3 sec (22.0-30.0); Prothrombin Time 10.2 sec (9.0-12.0)
--- NOTE | 2022-03-22 19:37 | XR ---
EXAMINATION TYPE: XR chest 2V DATE OF EXAM: 03/22/2022 COMPARISON: 02/28/2022 HISTORY: Pain TECHNIQUE: 2 views FINDINGS: Heart is normal. Lungs are clear of consolidation. There is slight blunting left costophren ic angle. There are no hilar masses. There are chest leads. IMPRESSION: There is some pleural reaction at the left lung base which is mostly cleared compared to old exam. Normal heart.
--- NOTE | 2022-03-22 20:46 | CT ---
EXAMINATION TYPE: CT angio chest DATE OF EXAM: 03/22/2022 COMPARISON: 02/28/2022 HISTORY: chest pain, elevated d-dimer CT DLP: 246.2 mGycm Automated exposure control for dose reduction was used. CONTRAST: Performed with IV Contrast, patient injected with 60cc mL of Isovue 370. There are 3-D post processed images. Images obtained from the thoracic inlet to the diaphragm with th e IV contrast. There is bilateral pleural effusions are larger on the left side. There is infiltrate or atelectasis at the posterior lung bases. Heart size is fairly normal. There is small pericardial effusion. There are no hilar masses. No mediastinal adenopathy. The sternum is intact. The thoracic spine is in tact. No compression fracture. There is normal contrast opacification of the pulmonary arteries. No filling defect. The thoracic aor ta is intact. No aneurysm or dissection. IMPRESSION: No evidence of pulmonary embolism. Small pleural effusions with basilar pulmonary infiltrates and ate lectasis. No suspicious pulmonary mass. Small pericardial effusion.
[2022-03-22 21:05] LABS: ALT 20 U/L (4-34); AST 17 U/L (14-36); African American GFR (CKD) >90 (>60 ml/min/1.73 sqM); Albumin 3.4 g/dL (3.5-5.0); Alkaline Phosphatase 69 U/L (38-126); Anion Gap 9 mmol/L; Blood Urea Nitrogen 9 mg/dL (7-17); Calcium 8.7 mg/dL (8.4-10.2); Carbon Dioxide 23 mmol/L (22-30); Chloride 100 mmol/L (98-107); Glucose 82 mg/dL (74-99); Magnesium 2.1 mg/dL (1.6-2.3); Non-African American GFR(CKD) >90 (>60 ml/min/1.73 sqM); Potassium 3.8 mmol/L (3.5-5.1); Sodium 132 mmol/L (137-145); Total Bilirubin 0.7 mg/dL (0.2-1.3); Total Protein 6.1 g/dL (6.3-8.2)
[2022-03-22] MEDS ORDERED: NALOXONE 0.4 MG/ML 1 ML VIAL IV PRN (21:07)
[2022-03-22] MEDS: IBUPROFEN 600 MG TAB PO SCH (22:01)
[2022-03-22] MEDS: SODIUM CHLORIDE 0.9% 1,000 ML IV SCH (22:18)
[2022-03-22] MEDS: COLCHICINE 0.6 MG EACH PO SCH (22:19)
--- NOTE | 2022-03-23 01:44 | P.HPIM ---
History of Present Illness H&P Date: 03/22/22 The patient is a 47-year-old female with a PMH of asthma, multiple recent admissions for pericarditis and pericardial effusion who now presents to the emergency room with complaints of chest discomfort. The patient reports that her prednisone prescription from her discharge had run out this past Thursday, and 48 hours later on Thursday, she began having similar chest pain which brought h er to the emergency room 3 weeks ago. She reports that the pain is left-sided with radiation of the left shoulder, sharp and achy in nature, pleuritic, and positional. She does report shortness of breath due to the pleuritic nature of the pain. States the pain is 10 out of 10 on maximal intensity. Denies expressing fever, chills, nausea, vomiting, abdominal pain, joint pain. Chest CTA in the emergency room revealed small pleural effusions with basilar pulmonary infiltrates and atelectasis. EKG reveals sinus tachycardia with diffuse ST segment elevation consistent with pericarditis at 107 bpm. After evaluation was remarkable for WBC count of 16.7, and troponin less than 0.012. Review of systems: Pertinent positives and negatives as discussed in HPI, a complete review of systems was performed and all other systems are negative. Physical examination: General: non toxic, no distress, appears at stated age, obese Derm: no unusual rashes/lesions, warm Head: atraumatic, normocephalic, symmetric Eyes: EOMI, no lid lag, anicteric sclera, pupils equal round reactive to light ENT: Nose and ears atraumatic Neck: No cervical lymphadenopathy, trachea midline, supple Mouth: no lip lesion, mucus membranes moist Cardiovascular: S1S2 reg, no murmur, positive dorsalis pedis pulse bilateral, no edema Lungs: CTA bilateral, no rhonchi, no rales, no accessory muscle use Abdominal: soft, nontender to palpation, no guarding Ext: muscle strength 5 out of 5 in all 4 extremities grossly, no gross muscle atrophy, no contractures, Neuro: CN II-XI grossly intact, no gross focal neuro deficits Psych: Alert, oriented, appropriate affect Assessment/plan Chest pain, possibly secondary to recurrent pericarditis -Echocardiogram ordered -Cardiology consulted -Cardiac monitoring -Continue with colchicine DVT prophylaxis -Heparin subcu The patient is admitted with an anticipated less than 2 midnight stay for evaluation of chest pain CODE STATUS: Full Code Discussed with: Patient Anticipated discharge date: in am Anticipated discharge place: Home Past Medical History Past Medical History: Asthma Additional Past Medical History / Comment(s): Asthma, pneumonia History of Any Multi-Drug Resistant Organisms: None Reported Additional Past Surgical History / Comment(s): Hernia surgery, gastric sleeve, tummy tuck, right ankle surgery Past Psychological History: No Psychological Hx Reported Smoking Status: Never smoker Past Alcohol Use History: Occasional Past Drug Use History: None Reported - Past Family History Mother Family Medical History: Chest Pain / Angina Medications and Allergies Home Medications Medication Instructions Recorded Confirmed Type oxyCODONE HCL/ACETAMINOPHEN 1 tab PO TID PRN 02/28/22 03/22/22 History [Percocet 10-325 mg] Colchicine [Colcrys] 0.6 mg PO BID #60 each 03/02/22 03/22/22 Rx Ketorolac [Toradol] 10 mg PO Q6HR #30 tab 03/02/22 03/22/22 Rx predniSONE [Deltasone] 40 mg PO DAILY #28 tab 03/02/22 03/22/22 Rx Allergies Allergy/AdvReac Type Severity Reaction Status Date / Time codeine AdvReac Nausea & Verified 03/22/22 21:43 Vomiting Physical Exam Vitals: Vital Signs Temp Pulse Resp BP Pulse Ox 03/22/22 23:00 98.0 F 92 20 145/78 95 03/22/22 21:51 96 20 124/77 95 03/22/22 19:00 97.8 F 92 20 120/68 97 03/22/22 17:08 116 H 18 121/81 91 L Intake and Output 03/22/22 03/22/22 03/23/22 14:59 22:59 06:59 Other: Weight 72.575 kg Results CBC & Chem 7: 03/22/22 18:34 03/22/22 20:40 Labs: Abnormal Lab Results - Last 24 Hours (Table) 03/22/22 03/22/22 03/22/22 Range/Units 18:34 18:34 20:40 WBC 16.7 H (3.8-10.6) k/uL RBC 3.72 L (3.80-5.40) m/uL Hgb 10.9 L (11.4-16.0) gm/dL Neutrophils # 13.6 H (1.3-7.7) k/uL D-Dimer 1.13 H (<0.60) mg/L FEU Sodium 132 L (137-145) mmol/L Total Protein 6.1 L (6.3-8.2) g/dL Albumin 3.4 L (3.5-5.0) g/dL
[2022-03-23] MEDS ORDERED: ACETAMINOPHEN TAB 325 MG TAB PO PRN (05:24)
[2022-03-23] MEDS ORDERED: NITROGLYCERIN SL TABS 0.4 MG TAB SUBLINGUAL PRN (05:25)
[2022-03-23] MEDS ORDERED: MORPHINE SULFATE 2 MG/ML SYRINGE IVP STA (06:49)
--- NOTE | 2022-03-23 08:41 | P.CRDCN ---
History of Present Illness Consult date: 03/23/22 Chief complaint: Chest pain History of present illness: This is a very pleasant 47-year-old -Danish female patient with a past medical history significant for recurrent pericarditis presented again with a chest discomfort. This is her second admission within the last few weeks. She was admitted to the hospital a few weeks ago with a chest discomfort which was pleuritic and concerning for pericarditis. That was her second episode. At that point she was discharged from here on colchicine along with steroids. She finished a course of steroids and subsequently started having chest discomfort again. She describes discomfort as a sharp in the middle of the chest very typical for pericarditis. Apparently the discomfort was severe enough to bring her to the hospital. No associated symptoms of fever or chills. No symptoms of shortness of breath. No dizziness or lightheadedness and no presyncope or syncope. She underwent a workup including CBC showed an elevated WBC. She also underwent a chest x-ray which showed some infiltrate seems to be somewhat concerning for pneumonia and also some pleural effusion. Currently she is chest pain-free. She underwent an echo during her last admission and that revealed normal left ventricular systolic function was no evidence of pericardial effusion. She remains hemodynamically stable. Past Medical History Past Medical History: Asthma Additional Past Medical History / Comment(s): Asthma, pneumonia History of Any Multi-Drug Resistant Organisms: None Reported Additional Past Surgical History / Comment(s): Hernia surgery, gastric sleeve, tummy tuck, right ankle surgery Past Psychological History: No Psychological Hx Reported Smoking Status: Never smoker Past Alcohol Use History: Occasional Past Drug Use History: None Reported - Past Family History Mother Family Medical History: Chest Pain / Angina Medications and Allergies Home Medications Medication Instructions Recorded Confirmed Type oxyCODONE HCL/ACETAMINOPHEN 1 tab PO TID PRN 02/28/22 03/22/22 History [Percocet 10-325 mg] Colchicine [Colcrys] 0.6 mg PO BID #60 each 03/02/22 03/22/22 Rx Ketorolac [Toradol] 10 mg PO Q6HR #30 tab 03/02/22 03/22/22 Rx predniSONE [Deltasone] 40 mg PO DAILY #28 tab 03/02/22 03/22/22 Rx Allergies Allergy/AdvReac Type Severity Reaction Status Date / Time codeine AdvReac Nausea & Verified 10/08/22 21:43 Vomiting Physical Exam Vitals: Vital Signs Temp Pulse Resp BP Pulse Ox 03/23/22 05:42 99 18 113/71 98 03/22/22 23:00 98.0 F 92 20 145/78 95 03/22/22 21:51 96 20 124/77 95 03/22/22 19:00 97.8 F 92 20 120/68 97 03/22/22 17:08 116 H 18 121/81 91 L Intake and Output 03/22/22 03/23/22 03/23/22 22:59 06:59 14:59 Other: Weight 72.575 kg 72.575 kg - Constitutional General appearance: no acute distress - Respiratory Respiratory: bilateral: CTA - Cardiovascular Rhythm: regular Heart sounds: normal: S1, S2 Results 03/22/22 18:34 03/22/22 20:40 Cardiac Enzymes 03/22/22 03/22/22 03/22/22 Range/Units 20:40 20:40 21:50 AST 17 (14-36) U/L Troponin I <0.012 <0.012 (0.000-0.034) ng/mL 03/23/22 Range/Units 00:47 AST (14-36) U/L Troponin I <0.012 (0.000-0.034) ng/mL Coagulation 03/22/22 Range/Units 18:34 PT 10.2 (9.0-12.0) sec APTT 23.3 (22.0-30.0) sec CBC 03/22/22 Range/Units 18:34 WBC 16.7 H (3.8-10.6) k/uL RBC 3.72 L (3.80-5.40) m/uL Hgb 10.9 L (11.4-16.0) gm/dL Hct 34.1 (34.0-46.0) % Plt Count 294 (150-450) k/uL Comprehensive Metabolic Panel 03/22/22 Range/Units 20:40 Sodium 132 L (137-145) mmol/L Potassium 3.8 (3.5-5.1) mmol/L Chloride 100 (98-107) mmol/L Carbon Dioxide 23 (22-30) mmol/L BUN 9 (7-17) mg/dL Creatinine 0.56 (0.52-1.04) mg/dL Glucose 82 (74-99) mg/dL Calcium 8.7 (8.4-10.2) mg/dL AST 17 (14-36) U/L ALT 20 (4-34) U/L Alkaline Phosphatase 69 (38-126) U/L Total Protein 6.1 L (6.3-8.2) g/dL Albumin 3.4 L (3.5-5.0) g/dL Current Medications Generic Name Dose Route Start Last Admin Trade Name Freq PRN Reason Stop Dose Admin Acetaminophen 650 mg 03/23/22 05:24 Acetaminophen Tab 325 Mg Tab PO Q6HR PRN Fever and/ or Pain Colchicine 0.6 mg 03/22/22 21:15 03/22/22 22:19 Colchicine 0.6 Mg Each PO 0.6 mg BID YASMANY Administration Heparin Sodium (Porcine) 5,000 unit 03/23/22 08:00 Heparin Sodium,Porcine/Pf 5,000 Unit/0.5 Ml Syringe SQ Q8HR YASMANY Sodium Chloride 1,000 mls @ 75 mls/hr 03/22/22 21:15 03/22/22 22:18 Saline 0.9% IV 75 mls/hr .[id number] YASMANY Administration Ibuprofen 600 mg 03/22/22 22:00 03/22/22 22:01 Ibuprofen 600 Mg Tab PO Not Given TID YASMANY Naloxone HCl 0.2 mg 03/22/22 21:07 Naloxone 0.4 Mg/Ml 1 Ml Vial IV Q2M PRN Opioid Reversal Nitroglycerin 0.4 mg 03/23/22 05:25 03/23/22 05:55 Nitroglycerin Sl Tabs 0.4 Mg Tab SUBLINGUAL 0.4 mg Q10M PRN Administration Chest Pain Pantoprazole Sodium 40 mg 03/23/22 08:45 Pantoprazole 40 Mg Tablet PO AC-BRKFST YASMANY Intake and Output 03/22/22 03/23/22 03/23/22 22:59 06:59 14:59 Other: Weight 72.575 kg 72.575 kg 03/22/22 18:34 03/22/22 20:40 Assessment and Plan Assessment: Assessment Pleuritic chest discomfort Recurrent pericarditis Plan Continue the current dose of colchicine which is 0.6 mg twice a day Agree about starting the patient on nonsteroidal anti-inflammatory medication PPI to protect the stomach Obtain sed rate Consider treatment for pneumonia Follow-up with the patient
[2022-03-23] MEDS: COLCHICINE 0.6 MG EACH PO SCH ×2 (09:06→20:15)
[2022-03-23] MEDS: IBUPROFEN 600 MG TAB PO SCH ×3 (09:06→20:15)
[2022-03-23] MEDS: PANTOPRAZOLE 40 MG TABLET PO SCH (09:07)
[2022-03-23] MEDS: HEPARIN SODIUM,PORCINE/PF 5,000 UNIT/0.5 ML SYRINGE SQ SCH ×2 (09:07→15:53)
[2022-03-23] MEDS ORDERED: MORPHINE SULFATE 4 MG/ML SYRINGE IVP STA (09:49)
[2022-03-23] MEDS: SODIUM CHLORIDE 0.9% 1,000 ML IV SCH (10:35)
[2022-03-23] MEDS: MORPHINE SULFATE 4 MG/ML SYRINGE IVP PRN ×2 (15:52→20:14)
--- NOTE | 2022-03-23 18:29 | P.PN ---
Subjective Progress Note Date: 03/23/22 Hospital course: The patient is a 47-year-old female with a past medical history of asthma and multiple recent admissions for pericarditis and pericardial effusion. She presented to the emergency department 03/22/22 with a chief complaint of chest pain. The patient reported that her prednisone prescription from her discharge had run out this past Thursday, and 48 hours later on Thursday, she began having similar chest pain which brought her to the emergency room 3 weeks ago. She r eports that the pain is left-sided with radiation of the left shoulder, sharp and achy in nature, pleuritic, and positional. She does report shortness of breath due to the pleuritic nature of the pain. States the pain is 10 out of 10 on maximal intensity. Denies expressing fever, chills, nausea, vomiting, abdominal pain, joint pain. Chest CTA in the emergency room revealed small pleural effusions with basilar pulmonary infiltrates and atelectasis. EKG reveals sinus tachycardia with diffuse ST segment elevation consistent with pericarditis at 107 bpm. After evaluation was remarkable for WBC count of 16.7, and troponin less than 0.012. Patient was admitted under services with consultation to cardiology. Physical exam: Patient seen and fully evaluated at bedside this morning. Patient reports she continues to have pressure-like pain to left anterior chest radiating into left shoulder. She reports morphine controlling pain. She denies having any headache, lightheadedness, dizziness, shortness of breath, or any other complaints at this time. Vital signs reviewed and stable. General: Nontoxic, no distress and appears stated age. Derm: Skin warm and dry, normal coloration for ethnicity. Head: Atraumatic, normocephalic and symmetric. Eyes: EOMs intact, no lid lag, and anicteric sclera Mouth: no lip lesions, mucus membranes moist Cardiovascular: regular rate and rhythm with normal S1S2, no murmur, positive posterior tibial pulses bilaterally, and cap refill < 2 seconds. Lungs: Respirations even, regular, and unlabored on room air. Lungs CTA bilaterally, no rhonchi, no rales, no wheezing, and no accessory muscle usage. Abdominal: soft, nontender to palpation, no guarding, no appreciable organomegaly Ext: ROM intact. No gross muscle atrophy, no edema, no contractures Neuro: Speech clear, face symmetrical and CN II-XII grossly intact with no noted focal neuro deficits Psych: Alert and oriented to person, place, time, and situation. Appropriate and pleasant affect. Assessment/plan Chest pain, possibly secondary to recurrent pericarditis -Echocardiogram ordered -Cardiology consulted -Cardiac monitoring -Continue with colchicine -Continue with anti-inflammatory medication, Motrin The patient is admitted with an anticipated less than 2 midnight stay for evaluation of chest pain CODE STATUS: Full Code DVT prophylaxis: Heparin subcu Discussed with: Patient and RN Anticipated discharge date: Clinical course to determine likely 24-[address]: Home A total of 33 minutes was spent on the care of this complex patient more than 50% of the time was spent in counseling and care coordination. .I reviewed the documentation as provided by the TORY above, who is the original author of this note. I agree with the documented assessment and plan, with the following changes: none Objective - Vital Signs Vital signs: Vital Signs Temp 98.0 F 03/22/22 23:00 Pulse 99 03/23/22 05:42 Resp 18 03/23/22 05:42 BP 113/71 03/23/22 05:42 Pulse Ox 98 03/23/22 05:42 FiO2 Intake & Output 03/22/22 03/23/22 03/23/22 18:59 06:59 18:59 Weight 72.575 kg 72.575 kg Other: Voiding Method Toilet - Labs CBC & Chem 7: 03/24/22 10:09 03/24/22 10:09 Labs: Abnormal Lab Results - Last 24 Hours (Table) 03/22/22 03/22/22 03/22/22 Range/Units 18:34 18:34 20:40 WBC 16.7 H (3.8-10.6) k/uL RBC 3.72 L (3.80-5.40) m/uL Hgb 10.9 L (11.4-16.0) gm/dL Neutrophils # 13.6 H (1.3-7.7) k/uL D-Dimer 1.13 H (<0.60) mg/L FEU Sodium 132 L (137-145) mmol/L Total Protein 6.1 L (6.3-8.2) g/dL Albumin 3.4 L (3.5-5.0) g/dL
[2022-03-24] MEDS: SODIUM CHLORIDE 0.9% 1,000 ML IV SCH ×2 (00:13→12:29)
[2022-03-24] MEDS: HEPARIN SODIUM,PORCINE/PF 5,000 UNIT/0.5 ML SYRINGE SQ SCH ×4 (00:20→23:20)
[2022-03-24] MEDS: MORPHINE SULFATE 4 MG/ML SYRINGE IVP PRN ×4 (01:23→19:59)
[2022-03-24] MEDS: IBUPROFEN 600 MG TAB PO SCH ×3 (07:08→19:59)
[2022-03-24] MEDS: COLCHICINE 0.6 MG EACH PO SCH ×2 (07:08→19:59)
[2022-03-24] MEDS: PANTOPRAZOLE 40 MG TABLET PO SCH (07:08)
[2022-03-24] MEDS ORDERED: methylPREDNISolone SOD SUCCI 125 MG/2 ML VIAL IV STA (08:22)
--- NOTE | 2022-03-24 10:52 | P.PN ---
Subjective Progress Note Date: 03/24/22 HISTORY OF PRESENT ILLNESS: This is a very pleasant 47-year-old -Martiniquais female patient with a past medical history significant for recurrent pericarditis presented again with a chest discomfort. This is her second admission within the last few weeks. She was admitted to the hospital a few weeks ago with a chest discomfort which was pleuritic and concerning for pericarditis. That was her second episode. At that point she was discharged from here on colchicine along with steroids. She finished a course of steroids and subsequently started having chest discomfort again. She describes discomfort as a sharp in the middle of the chest very typical for pericarditis. Apparently the discomfort was severe enough to bring her to the hospital. No associated symptoms of fever or chills. No symptoms of shortness of breath. No dizziness or lightheadedness and no presyncope or syncope. She underwent a workup including CBC showed an elevated WBC. She also underwent a chest x-ray which showed some infiltrate seems to be somewhat concerning for pneumonia and also some pleural effusion. Currently she is chest pain-free. She underwent an echo during her last admission and that revealed normal left ventricular systolic function was no evidence of pericardial e ffusion. She remains hemodynamically stable. 03/24/2022 Patient examined this morning at the bedside. She denies shortness of breath. She continues to report left chest pain and left shoulder and arm pain. She states the pain is not better or worse when she is sitting up or laying down. She reports pain with movement of the left arm and also with chest wall palpation. She gives further history of having a stress test performed at [place] recently. She reports that she is has been off steroids since last month. She was found to have a white count upon admission. She denies any fever or chills. She denied any cough or congestion. PHYSICAL EXAM: VITAL SIGNS: Reviewed. GENERAL: Well-developed in no acute distress. NECK: Supple. No JVD or thyromegaly LUNGS: Respirations even and unlabored. Lungs essentially clear to auscultation bilaterally. HEART: Regular rate and rhythm. S1 and S2 heard. EXTREMITIES: Normal range of motion. No clubbing or cyanosis. Peripheral pulses intact. No lower extremity edema ASSESSMENT: Chest pain Recurrent pericarditis Leukocytosis History of recent pneumonia, 2-3 months ago PLAN: Continue with Motrin and Colchicine Continue PRN Morphine Give Solumedral 125mg x 1 dose now, followed by 60mg IV Q8 hours Obtain RUTH, anti-DNA DS antibody, P-ANCA, anti-da silva antibody Obtain CRP and sed rate Recommend rheumatology evaluation to rule out underlying inflammatory conditions or diseases Obtain records from previous hospitalization at [facility] and [facility] Further recommendations pending patient course Nurse practitioner note has been reviewed by physician. Signing provider agrees with the documented findings, assessment, and plan of care. Objective - Vital Signs Vital signs: Vital Signs Temp 98.3 F 03/24/22 07:00 Pulse 117 H 03/24/22 07:00 Resp 16 03/24/22 07:00 BP 95/67 03/24/22 07:00 Pulse Ox 100 03/24/22 07:00 FiO2 21 03/23/22 19:49 Intake & Output 03/23/22 03/24/22 03/24/22 18:59 06:59 18:59 Intake Total 340 Balance 340 Intake: Oral 340 Other: Voiding Method Toilet Toilet Toilet # Voids 1 1 - Labs CBC & Chem 7: 03/22/22 18:34 03/22/22 20:40
[2022-03-24 11:25] LABS: African American GFR (CKD) >90 (>60 ml/min/1.73 sqM); Anion Gap 9 mmol/L; Blood Urea Nitrogen 11 mg/dL (7-17); Calcium 8.5 mg/dL (8.4-10.2); Carbon Dioxide 22 mmol/L (22-30); Chloride 101 mmol/L (98-107); Glucose 158 mg/dL (74-99); Non-African American GFR(CKD) >90 (>60 ml/min/1.73 sqM); Potassium 4.2 mmol/L (3.5-5.1); Sodium 132 mmol/L (137-145)
[2022-03-24 11:29] LABS: Basophils % (A) 0 %; Eosinophils # (A) 0.2 k/uL (0-0.7); Eosinophils % (A) 1 %; HCT 32.4 % (34.0-46.0); HGB 10.3 gm/dL (11.4-16.0); Hypochromasia Slight; Lymphocytes % (A) 8 %; MCHC 31.7 g/dL (31.0-37.0); MCV 91.6 fL (80.0-100.0); Monocytes # (A) 0.5 k/uL (0-1.0); Monocytes % (A) 4 %; Neutrophils # (A) 10.8 k/uL (1.3-7.7); Neutrophils % (A) 85 %; Platelet Count 346 k/uL (150-450); RBC 3.54 m/uL (3.80-5.40); RDW 14.7 % (11.5-15.5); WBC 12.7 k/uL (3.8-10.6)
[2022-03-24 13:08] LABS: Erythrocyte Sedimentation Rate 91 mm/hr (0-20)
[2022-03-24] MEDS: methylPREDNISolone SOD SUCCI 125 MG/2 ML VIAL IV SCH ×2 (15:07→23:20)
--- NOTE | 2022-03-24 17:40 | P.PN ---
Subjective Progress Note Date: 03/24/22 Hospital course: The patient is a 47-year-old female with a past medical history of asthma and multiple recent admissions for pericarditis and pericardial effusion. She presented to the emergency department 03/22/22 with a chief complaint of chest pain. The patient reported that her prednisone prescription from her discharge had run out this past Thursday, and 48 hours later on Thursday, she began having similar chest pain which brought her to the emergency room 3 weeks ago. She r eports that the pain is left-sided with radiation of the left shoulder, sharp and achy in nature, pleuritic, and positional. She does report shortness of breath due to the pleuritic nature of the pain. States the pain is 10 out of 10 on maximal intensity. Denies expressing fever, chills, nausea, vomiting, abdominal pain, joint pain. Chest CTA in the emergency room revealed small pleural effusions with basilar pulmonary infiltrates and atelectasis. EKG reveals sinus tachycardia with diffuse ST segment elevation consistent with pericarditis at 107 bpm. After evaluation was remarkable for WBC count of 16.7, and troponin less than 0.012. Patient was admitted under services with consultation to cardiology. Physical exam: Patient seen and fully evaluated at bedside this morning. She continues to report intermittent pressure-like pain to left anterior chest. 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 Patient sitting up in bed appears to be in no acute distress at this time. Echocardiogram to be completed. Patient denies having any headache, lightheadedness, dizziness, shortness of breath, or any other complaints at this time. Vital signs reviewed and stable. General: Nontoxic, no distress and appears stated age. Derm: Skin warm and dry, normal coloration for ethnicity. Head: Atraumatic, normocephalic and symmetric. Eyes: EOMs intact, no lid lag, and anicteric sclera Mouth: no lip lesions, mucus membranes moist Cardiovascular: regular rate and rhythm with normal S1S2, no murmur, positive posterior tibial pulses bilaterally, and cap refill < 2 seconds. Lungs: Respirations even, regular, and unlabored on room air. Lungs CTA bilaterally, no rhonchi, no rales, no wheezing, and no accessory muscle usage. Abdominal: soft, nontender to palpation, no guarding, no appreciable organomegaly Ext: ROM intact. No gross muscle atrophy, no edema, no contractures Neuro: Speech clear, face symmetrical and CN II-XII grossly intact with no noted focal neuro deficits Psych: Alert and oriented to person, place, time, and situation. Appropriate and pleasant affect. Assessment/plan Chest pain, possibly secondary to recurrent pericarditis -Echocardiogram to be completed. -Cardiology following. -Cardiac monitoring -Continue with colchicine -Continue with anti-inflammatory medication, Motrin The patient is admitted with an anticipated less than 2 midnight stay for evaluation of chest pain CODE STATUS: Full Code DVT prophylaxis: Heparin subcu Discussed with: Patient and RN Anticipated discharge date: Clinical course to determine likely 24-[address]: Home A total of 31 minutes was spent on the care of this complex patient more than 50% of the time was spent in counseling and care coordination. .I reviewed the documentation as provided by the TORY above, who is the original author of this note. I agree with the documented assessment and plan, with the following changes: none Objective - Vital Signs Vital signs: Vital Signs Temp 98.3 F 03/24/22 07:00 Pulse 117 H 03/24/22 07:00 Resp 16 03/24/22 07:00 BP 95/67 03/24/22 07:00 Pulse Ox 100 03/24/22 07:00 FiO2 21 03/23/22 19:49 Intake & Output 03/23/22 03/24/22 03/24/22 18:59 06:59 18:59 Intake Total 340 Balance 340 Intake: Oral 340 Other: Voiding Method Toilet Toilet # Voids 1 1 - Labs CBC & Chem 7: 03/24/22 10:09 03/24/22 10:09
[2022-03-24 17:51] LABS: Anti-Smith Ab Interp NEGATIVE (NEGATIVE); DNA Double-Stranded NEGATIVE (NEGATIVE)
[2022-03-25] MEDS: SODIUM CHLORIDE 0.9% 1,000 ML IV SCH (03:34)
--- NOTE | 2022-03-25 07:06 | P.PN ---
Subjective HISTORY OF PRESENT ILLNESS: This is a very pleasant 47-year-old -[place] female patient with a past medical history significant for recurrent pericarditis presented again with a chest discomfort. This is her second admission within the last few weeks. She was admitted to the hospital a few weeks ago with a chest discomfort which was p leuritic and concerning for pericarditis. That was her second episode. At that point she was discharged from here on colchicine along with steroids. She finished a course of steroids and subsequently started having chest discomfort again. She describes discomfort as a sharp in the middle of the chest very typical for pericarditis. Apparently the discomfort was severe enough to bring her to the hospital. No associated symptoms of fever or chills. No symptoms of shortness of breath. No dizziness or lightheadedness and no presyncope or syncope. She underwent a workup including CBC showed an elevated WBC. She also underwent a chest x-ray which showed some infiltrate seems to be somewhat concerning for pneumonia and also some pleural effusion. Currently she is chest pain-free. She underwent an echo during her last admission and that revealed normal left ventricular systolic function was no evidence of pericardial effusion. She remains hemodynamically stable. 03/24/2022 Patient examined this morning at the bedside. She denies shortness of breath. She continues to report left chest pain and left shoulder and arm pain. She states the pain is not better or worse when she is sitting up or laying down. She reports pain with movement of the left arm and also with chest wall pal pation. She gives further history of having a stress test performed at [place] recently. She reports that she is has been off steroids since last month. She was found to have a white count upon admission. She denies any fever or chills. She denied any cough or congestion. 03/25 Patient seen and examined. Patient started on steroids yesterday with Solu- Medrol and chest pain and shoulder pain much improved. Further blood work repeated with ESR elevated at 91, CRP elevated at 9.0. Autoimmune workup with a in a, anti-Vega antibody, double-stranded DNA was negative. PHYSICAL EXAM: VITAL SIGNS: Reviewed. GENERAL: Well-developed in no acute distress. NECK: Supple. No JVD or thyromegaly LUNGS: Respirations even and unlabored. Lungs essentially clear to auscultation bilaterally. HEART: Regular rate and rhythm. S1 and S2 heard. EXTREMITIES: Normal range of motion. No clubbing or cyanosis. Peripheral pulses intact. No lower extremity edema ASSESSMENT: Chest pain Recurrent pericarditis Leukocytosis History of recent pneumonia, 2-3 months ago PLAN: Patient with ST elevations likely consistent with pericarditis however also consideration of early repolarization, more common in -Uz[place] individuals and abnormal EKG may be a red [place]. Inflammatory markers significantly elevated and initial autoimmune workup unrevealing. Continue with colchicine, Motrin, antacid and steroids. On discharge follow-up with cardiology and conductor sleeping car to rule out other auto immune/ inflammatory diseases. More prolonged steroid taper given recurrent episodes and continue with prednisone 40 mg daily on discharge until follow-up in cardiology office. Okay for discharge home today if continues to have controlled chest pain. Objective - Vital Signs Vital signs: Vital Signs Temp 97.8 F 03/25/22 02:42 Pulse 82 03/25/22 02:42 Resp 17 03/25/22 02:42 BP 102/70 03/25/22 02:42 Pulse Ox 98 03/25/22 02:42 FiO2 21 03/23/22 19:49 Intake & Output 03/24/22 03/25/22 03/25/22 18:59 06:59 18:59 Intake Total 354 Balance 354 Intake: Oral 354 Other: Voiding Method Toilet Toilet # Voids 1 1 - Labs CBC & Chem 7: 03/24/22 10:09 03/24/22 10:09 Labs: Abnormal Lab Results - Last 24 Hours (Table) 03/24/22 03/24/22 Range/Units 10:09 10:09 WBC 12.7 H (3.8-10.6) k/uL RBC 3.54 L (3.80-5.40) m/uL Hgb 10.3 L (11.4-16.0) gm/dL Hct 32.4 L (34.0-46.0) % Neutrophils # 10.8 H (1.3-7.7) k/uL ESR 91 H (0-20) mm/hr Sodium 132 L (137-145) mmol/L Glucose 158 H (74-99) mg/dL C-Reactive Protein 9.0 H (<1.0) mg/dL
[2022-03-25] MEDS: PANTOPRAZOLE 40 MG TABLET PO SCH (08:19)
[2022-03-25] MEDS: HEPARIN SODIUM,PORCINE/PF 5,000 UNIT/0.5 ML SYRINGE SQ SCH (08:19)
[2022-03-25] MEDS: methylPREDNISolone SOD SUCCI 125 MG/2 ML VIAL IV SCH (08:19)
[2022-03-25] MEDS: COLCHICINE 0.6 MG EACH PO SCH (08:20)
[2022-03-25] MEDS: IBUPROFEN 600 MG TAB PO SCH (08:20)
[2022-03-25] MEDS: MORPHINE SULFATE 4 MG/ML SYRINGE IVP PRN (08:22)
[2022-03-25 08:42] VITALS: BP 97/65; PULSE 91; RESP 16; TEMP 98.2
--- NOTE | 2022-03-25 13:02 | P.DS ---
Providers Date of admission: 03/24/22 08:29 Expected date of discharge: 03/25/22 Attending physician: Judson Prather MD Consults: 03/22/22 21:07 Consult Physician Routine Consulting Provider: Jones Rosenthal Consult Reason/Comments: CP Do you want consulting provider notified?: Yes Primary care physician: Physician Nonstaff Hospital Course: Discharge Diagnosis: Chest pain Recurrent pericarditis Pleural effusion Pericardial effusion Sinus tachycardia Leukocytosis Asthma Hospital Course: A 7-year-old female with history of asthma and multiple recent admissions for pericarditis and pericardial effusion presented with chest pain. Chest CTA in the ER revealed a small pleural effusion with bibasilar pulmonary infiltrates and atelectasis, and small pericardial effusion. EKG showed sinus tachycardia with diffuse ST elevation consistent with pericarditis. Her leukocyte count was 16.7 initially. Her troponin 1 less than 0.012. Cardiology was consulted. Patient was continued on steroids, colchicine, Motrin, and an antacid. Initial autoimmune workup was unrevealing. She had elevated inflammatory markers. Cardiology recommending follow-up with cardiology as well as rheumatology as an outpatient. She will require prolonged steroid course of prednisone 40 mg daily until she follows up with cardiology in their office. Patient seen and examined at bedside. Vital signs reviewed and stable. General: nontoxic, no distress, appears at stated age Derm: warm, dry Head: atraumatic, normocephalic, symmetric Eyes: EOMI, no lid lag, anicteric sclera Mouth: no lip lesion, mucus membranes moist Cardiovascular: S1S2 reg, no murmur Lungs: CTA bilateral, no rhonchi, no rales , no accessory muscle use Abdominal: soft, nontender to palpation, no guarding, no appreciable organomegaly Ext: no gross muscle atrophy, no edema, no contractures Neuro: CN II-XI grossly intact, no focal neuro deficits Psych: Alert, oriented, appropriate affect A total of 38 minutes of time were spent preparing this complex discharge summary. Patient was discharged on 03/25/22 at 8:57. Patient Condition at Discharge: Stable Plan - Discharge Summary New Discharge Prescriptions: New Colchicine 0.6 mg PO BID #60 tablet predniSONE [Deltasone] 40 mg PO DAILY #30 tab Ibuprofen [Motrin] 600 mg PO Q8HR PRN #90 tab PRN Reason: Pain Pantoprazole [Protonix] 40 mg PO DAILY #30 tab Continue oxyCODONE HCL/ACETAMINOPHEN [Percocet 10-325 mg] 1 tab PO TID PRN PRN Reason: Pain Discontinued Ketorolac [Toradol] 10 mg PO Q6HR #30 tab Discharge Medication List oxyCODONE HCL/ACETAMINOPHEN [Percocet 10-325 mg] 1 tab PO TID PRN 02/28/22 [History] Colchicine 0.6 mg PO BID #60 tablet 03/25/22 [Rx] Ibuprofen [Motrin] 600 mg PO Q8HR PRN #90 tab 03/25/22 [Rx] Pantoprazole [Protonix] 40 mg PO DAILY #30 tab 03/25/22 [Rx] predniSONE [Deltasone] 40 mg PO DAILY #30 tab 03/25/22 [Rx] Follow up Appointment(s)/Referral(s): Nonstaff,Physician [Primary Care Provider] - 1-2 days Jones Rosenthal MD [STAFF PHYSICIAN] - 1 Week Patient Instructions/Handouts: Acute Pericarditis (DC) Activity/Diet/Wound Care/Special Instructions: Please follow up with cardiology in 1 week Discharge Disposition: HOME SELF-CARE
[2022-03-25 14:26] LABS: C-ANCA <1:20 Titer (<1:20)
--- NOTE | 2022-03-26 14:24 | CA ---
Transthoracic Echo Report Name: Cesar Malik Age: 47 Gender: F : 1975 Exam Date: 03/24/2022 12:20 Exam Location: [facility] Ht (in): 58 Wt (lb): 160 Ordering Physician: Vera Lowery Attending/Referring Phys: [id number], Sebastián Tube Coremaker Amelie Harmon RDCS Procedure CPT: Indications: LV function, assess for effusion, pericarditis Cardiac Hx: Technical Quality: Fair Contrast 1: Total Dose (mL): Contrast 2: Total Dose (mL): MEASUREMENTS (Male / Female) Normal Values 2D ECHO LV Diastolic Diameter PLAX 3.8 cm 4.2 - 5.9 / 3.9 - 5.3 cm LV Systolic Diameter PLAX 2.6 cm IVS Diastolic Thickness 1.0 cm 0.6 - 1.0 / 0.6 - 0.9 cm LVPW Diastolic Thickness 0.8 cm 0.6 - 1.0 / 0.6 - 0.9 cm LV Relative Wall Thickness 0.5 FINDINGS Left Ventricle Mildly increased left ventricular wall thickness. Normal left ventricular systolic function with no obvious regional wall motion abnormalities. Left ventricular ejection fraction is estimated at 55-60 %. Right Ventricle Right Atrium Left Atrium Mitral Valve Aortic Valve Tricuspid Valve Pulmonic Valve Pericardium Small pericardial effusion. Pleural effusion. Aorta CONCLUSIONS Normal left ventricular ejection fraction 55-60% Small pericardial effusion without cardiac tamponade physiology Pleural effusion noted Previewed by: Dr. Duong Abel DO (Electronically Signed) Final Date: 25 March 2022 09:02
== END 2022-03-25 10:29 | disposition home or self-care (01) | DRG 315 ==
LOC: EC 17:01 → 6NMEDSUR 21:07 → OBSVTOIN 03-24 08:29
PROVIDERS: ADMIT Internal Medicine; ATTEND Internal Medicine
DX: I31.9 Disease of pericardium, unspecified (principal); J90 Pleural effusion, not elsewhere classified; J98.11 Atelectasis; Z20.822 Contact with and (suspected) exposure to COVID-19; I31.39 Other pericardial effusion (noninflammatory); J45.909 Unspecified asthma, uncomplicated; D64.9 Anemia, unspecified; Z79.1 Long term (current) use of non-steroidal anti-inflammatories (NSAID); Z79.52 Long term (current) use of systemic steroids; Z79.899 Other long term (current) drug therapy; Z87.01 Personal history of pneumonia (recurrent); Z98.84 Bariatric surgery status; Z88.5 Allergy status to narcotic agent
CPT/HCPCS: 36415; 71046; 71275; 80048; 80053; 83735; 84484; 85025; 85379; 85610; 85652; 85730; 86038; 86140; 86225; 86235; 86255; 87635; 93005; 93308; 94760; 96361; 96374; 99285

== ENCOUNTER 2022-04-09 16:48 | Observation (INO) | payer OTHER ==
[2022-04-09 17:37] LABS: Basophils % (A) 0 %; Eosinophils % (A) 0 %; HCT 34.1 % (34.0-46.0); HGB 10.8 gm/dL (11.4-16.0); Hypochromasia Moderate; Lymphocytes % (A) 8 %; MCHC 31.8 g/dL (31.0-37.0); MCV 91.3 fL (80.0-100.0); Mean Platelet Volume 7.4; Monocytes # (A) 0.3 k/uL (0-1.0); Monocytes % (A) 2 %; Neutrophils # (A) 11.7 k/uL (1.3-7.7); Neutrophils % (A) 89 %; Platelet Count 336 k/uL (150-450); RBC 3.74 m/uL (3.80-5.40); RDW 15.6 % (11.5-15.5); WBC 13.1 k/uL (3.8-10.6)
[2022-04-09 17:51] LABS: INR 0.9 (<1.2); Prothrombin Time 9.9 sec (9.0-12.0)
[2022-04-09 17:52] LABS: ALT 33 U/L (4-34); AST 24 U/L (14-36); African American GFR (CKD) >90 (>60 ml/min/1.73 sqM); Albumin 3.8 g/dL (3.5-5.0); Alkaline Phosphatase 52 U/L (38-126); Anion Gap 7 mmol/L; Blood Urea Nitrogen 14 mg/dL (7-17); Carbon Dioxide 28 mmol/L (22-30); Chloride 104 mmol/L (98-107); Glucose 98 mg/dL (74-99); Non-African American GFR(CKD) >90 (>60 ml/min/1.73 sqM); Potassium 4.3 mmol/L (3.5-5.1); Sodium 139 mmol/L (137-145); Total Bilirubin 0.2 mg/dL (0.2-1.3); Total Protein 6.2 g/dL (6.3-8.2)
[2022-04-09 18:00] LABS: Partial Thromboplastin Time 21.7 sec (22.0-30.0)
--- NOTE | 2022-04-09 19:04 | ED ---
Chest Pain HPI - General Chief Complaint: Chest Pain Stated Complaint: Chest Pain Time Seen by Provider: 04/09/22 18:53 Source: patient Mode of arrival: ambulatory Limitations: no limitations - History of Present Illness Initial Comments: This patient is 47-year-old woman with recent history of pericarditis, who presents with complaint that she is having new chest pain. Patient states that she had been having marked improvement after taking the medication she was prescribed for pericarditis but today had intensifying substernal chest pain. Patient also has radiation upper extremity. She states that when she felt the floor renovator office she was directed to come emergency department regarding the pain. MD Complaint: chest pain -: hour(s) Onset: during rest Pain Location: substernal Pain Radiation: none Severity: moderate Quality: aching Consistency: constant Improves With: nothing Worsens With: nothing Treatments Prior to Arrival: none - Related Data Home Medications Medication Instructions Recorded Confirmed oxyCODONE HCL/ACETAMINOPHEN 1 tab PO TID PRN 02/28/22 04/09/22 [Percocet 10-325 mg] Previous Rx's Medication Instructions Recorded Colchicine 0.6 mg PO BID #60 tablet 03/25/22 Ibuprofen [Motrin] 600 mg PO Q8HR PRN #90 tab 03/25/22 Pantoprazole [Protonix] 40 mg PO DAILY #30 tab 03/25/22 predniSONE [Deltasone] 40 mg PO DAILY #30 tab 03/25/22 Allergies Allergy/AdvReac Type Severity Reaction Status Date / Time codeine AdvReac Nausea & Verified 04/09/22 21:52 Vomiting Review of Systems ROS Statement: Those systems with pertinent positive or pertinent negative responses have been documented in the HPI. ROS Other: All systems not noted in ROS Statement are negative. Constitutional: Denies: fever, chills Respiratory: Denies: cough, dyspnea Cardiovascular: Reports: chest pain. Denies: palpitations, orthopnea, edema, syncope Gastrointestinal: Denies: abdominal pain, nausea, vomiting Genitourinary: Denies: dysuria, hematuria Musculoskeletal: Denies: back pain Skin: Denies: rash Neurological: Denies: headache, weakness, numbness EKG Findings - EKG Comments: EKG Findings:: Possible right ventricular conduction delay. - EKG Results: EKG: interpreted by GEOVANNI, sinus rhythm, normal axis Past Medical History Past Medical History: Asthma Additional Past Medical History / Comment(s): Asthma, pneumonia History of Any Multi-Drug Resistant Organisms: None Reported Additional Past Surgical History / Comment(s): Hernia surgery, gastric sleeve, tummy tuck, right ankle surgery Past Psychological History: No Psychological Hx Reported Smoking Status: Never smoker Past Alcohol Use History: Occasional Past Drug Use History: None Reported - Past Family History Mother Family Medical History: Chest Pain / Angina General Exam Limitations: no limitations General appearance: alert, in no apparent distress Head exam: Present: atraumatic, normocephalic Eye exam: Present: normal appearance. Absent: scleral icterus, conjunctival injection Neck exam: Present: normal inspection Respiratory exam: Present: normal lung sounds bilaterally. Absent: respiratory distress, wheezes, rales, rhonchi, stridor Cardiovascular Exam: Present: regular rate, normal rhythm, normal heart sounds. Absent: systolic murmur, diastolic murmur, rubs, gallop GI/Abdominal exam: Present: soft. Absent: distended, tenderness, guarding, rebound, rigid, mass Extremities exam: Present: normal inspection, normal capillary refill. Absent: pedal edema, calf tenderness Back exam: Present: normal inspection. Absent: CVA tenderness (R), CVA tenderness (L) Neurological exam: Present: alert Skin exam: Present: warm, dry, intact, normal color. Absent: rash Course Vital Signs 04/09/22 04/09/22 16:59 19:25 Temperature 97.2 F L Pulse Rate 85 76 Pulse Rate [ 76 Apical] Respiratory 16 14 Rate Blood Pressure 125/74 130/76 O2 Sat by Pulse 96 99 Oximetry Disposition Clinical Impression: Chest pain Disposition: ADMITTED IP TO THIS HOSP Condition: Good Is patient prescribed a controlled substance at d/c from ED?: No
[2022-04-09] MEDS ORDERED: NITROGLYCERIN SL TABS 0.4 MG TAB SUBLINGUAL PRN (21:29)
--- NOTE | 2022-04-10 00:34 | P.HPIM ---
History of Present Illness H&P Date: 04/09/22 The patient is a 47-year-old female with a PMH of asthma, recent diagnosis of pericarditis with effusion and multiple admissions now presents to the emergency room with substernal chest discomfort. The patient reports that following her recent discharge on 03/25, she has continued to use prednisone 40 mg oral daily. 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 She reports that earlier today however, as she was getting ready to go to work, she suddenly developed pleuritic substernal chest discomfort, 8 out of 10 on maximal intensity, constant, with no alleviating features. She reports that the pain is similar nature to when she had her previous presentations for pericarditis. At time of interview, she reports that her pain continues to be a 5 out of 10. She denied fever, nausea, vomiting, abdominal pain, diarrhea. EKG emergency room reveals sinus rhythm at 81 bpm with poor R-wave progression and T-wave flattening in leads V2 with inversion in lead V1. Laboratory evaluation revealed leukocytosis of 13.1, with troponin less than 0.012. Review of systems: Pertinent positives and negatives as discussed in HPI, a complete review of systems was performed and all other systems are negative. Physical examination: General: non toxic, no distress, appears at stated age, obese Derm: no unusual rashes/lesions, warm Head: atraumatic, normocephalic, symmetric Eyes: EOMI, no lid lag, anicteric sclera, pupils equal round reactive to light ENT: Nose and ears atraumatic Neck: No cervical lymphadenopathy, trachea midline, supple Mouth: no lip lesion, mucus membranes moist Cardiovascular: S1S2 reg, no murmur, positive dorsalis pedis pulse bilateral, no edema Lungs: CTA bilateral, no rhonchi, no rales, no accessory muscle use Abdominal: soft, nontender to palpation, no guarding Ext: muscle strength 5 out of 5 in all 4 extremities grossly, no gross muscle atrophy, no contractures, Neuro: CN II-XI grossly intact, no gross focal neuro deficits Psych: Alert, oriented, appropriate affect Assessment/plan Pleuritic substernal chest discomfort with recent multiple admissions for pericarditis -Continue colchicine, prednisone, and Protonix. -Patient has not had the [facility] to see rheumatology as outpatient as of yet -Cardiology consult -Cardiac monitoring -Obtain inflammatory markers -Obtain CXR DVT prophylaxis -Heparin subcu The patient is admitted with an anticipated less than 2 midnight stay for evaluation of chest pain CODE STATUS: Full Code Discussed with: Patient Anticipated discharge date: in am Anticipated discharge place: Home Past Medical History Past Medical History: Asthma Additional Past Medical History / Comment(s): Asthma, pneumonia History of Any Multi-Drug Resistant Organisms: None Reported Additional Past Surgical History / Comment(s): Hernia surgery, gastric sleeve, tummy tuck, right ankle surgery Past Psychological History: No Psychological Hx Reported Smoking Status: Never smoker Past Alcohol Use History: Occasional Past Drug Use History: None Reported - Past Family History Mother Family Medical History: Chest Pain / Angina Medications and Allergies Home Medications Medication Instructions Recorded Confirmed Type oxyCODONE HCL/ACETAMINOPHEN 1 tab PO TID PRN 02/28/22 04/09/22 History [Percocet 10-325 mg] Colchicine 0.6 mg PO BID #60 tablet 03/25/22 04/09/22 Rx Ibuprofen [Motrin] 600 mg PO Q8HR PRN #90 tab 03/25/22 04/09/22 Rx Pantoprazole [Protonix] 40 mg PO DAILY #30 tab 03/25/22 04/09/22 Rx predniSONE [Deltasone] 40 mg PO DAILY #30 tab 03/25/22 04/09/22 Rx Allergies Allergy/AdvReac Type Severity Reaction Status Date / Time codeine AdvReac Nausea & Verified 04/09/22 21:52 Vomiting Physical Exam Vitals: Vital Signs Temp Pulse Pulse Resp BP Pulse Ox 04/09/22 19:25 76 76 14 130/76 99 04/09/22 16:59 97.2 F L 85 16 125/74 96 Intake and Output 04/09/22 04/09/22 04/10/22 14:59 22:59 06:59 Other: Weight 72.575 kg Results CBC & Chem 7: 04/09/22 17:12 04/09/22 17:12 Labs: Abnormal Lab Results - Last 24 Hours (Table) 04/09/22 04/09/22 04/09/22 Range/Units 17:12 17:12 17:12 WBC 13.1 H (3.8-10.6) k/uL RBC 3.74 L (3.80-5.40) m/uL Hgb 10.8 L (11.4-16.0) gm/dL RDW 15.6 H (11.5-15.5) % Neutrophils # 11.7 H (1.3-7.7) k/uL APTT 21.7 L (22.0-30.0) sec Total Protein 6.2 L (6.3-8.2) g/dL
--- NOTE | 2022-04-10 01:05 | XR ---
EXAMINATION TYPE: XR chest 2V DATE OF EXAM: 04/10/2022 COMPARISON: 03/22/2022 HISTORY: Chest pain TECHNIQUE: FINDINGS: There is mild blunting of the posterior costophrenic angles on the lateral view. Heart size is normal . There are no hilar masses. Mediastinum is normal. IMPRESSION: There is evidence for some small bilateral pleural effusions which are increased compared to no heart failure. Normal heart.
[2022-04-10] MEDS: oxyCODONE-APAP 10-325MG 1 EACH TAB PO PRN ×2 (03:15→17:41)
[2022-04-10] MEDS ORDERED: DOBUTamine DRIP for NUC MED 500 MG in DEXTROSE/WATER 1 250ML.BAG IV PRN (08:16)
[2022-04-10] MEDS: COLCHICINE 0.6 MG EACH PO SCH ×2 (08:44→20:24)
[2022-04-10] MEDS: HEPARIN SODIUM,PORCINE/PF 5,000 UNIT/0.5 ML SYRINGE SQ SCH ×2 (08:45→18:02)
[2022-04-10] MEDS: PANTOPRAZOLE 40 MG TABLET PO SCH (08:45)
[2022-04-10 08:47] LABS: LDL Cholesterol,Calculated 104.6 mg/dL (0.0-131.0); VLDL Calculation 17.86 mg/dL (5.00-40.00)
[2022-04-10] MEDS ORDERED: predniSONE 20 MG TAB PO SCH (09:00)
[2022-04-10] MEDS ORDERED: ASPIRIN 325 MG TAB PO SCH (09:00)
--- NOTE | 2022-04-10 09:54 | P.CRDCN ---
History of Present Illness Consult date: 04/10/22 History of present illness: HISTORY OF PRESENT ILLNESS: This is a 47-year-old female with a past medical history significant for recurrent pericarditis. Patient follows in the office with Dr. Rosenthal. She apparently also sees a tongue lining stitcher out of [place], [place]. We have been asked to see the patient in consultation for chest pain. Patient examined at the bedside. The patient was recently hospitalized for chest pain and recurrent pericarditis. She was discharged home in stable condition. She presents back to the hospital again for chest pain. This is the third admission recently. At home the patient is prescribed colchicine, Motrin, and prednisone. She denies any shortness of breath. She reports having a stress test recently at an outside facility but the results of that are unknown at this time. * EKG reveals sinus mechanism with no signs of acute ischemia. Patient's EKG is actually improved from her previous EKG which revealed diffuse ST elevation. * Chest xray there is evidence for some bilateral pleural effusions which are increased compared to exam. No heart failure. * Laboratory data: WBC 13.1. Hemoglobin 10.8. Platelet count 336. ESR 8. Sodium 139. Potassium 4.3. BUN 14. Creatinine 0.63. Troponin negative 3. CRP less than 0.5. * Current home cardiac medications include colchicine 0.6 mg twice a day * Most recent echocardiogram obtained in March 2022 revealed ejection fraction 55-60% with small pericardial effusion REVIEW OF SYSTEMS: At the time of my exam: CONSTITUTIONAL: Denies fever or chills. HEENT: Denies blurred vision, vision changes, or eye pain. Denies hemoptysis CARDIOVASCULAR: Denies chest pain. Denies orthopnea. Denies PND. Denies palpitations RESPIRATORY: Denies shortness of breath. GASTROINTESTINAL: Denies abdominal pain. Denies nausea or vomiting. HEMATOLOGIC: Denies bleeding disorders. GENITOURINARY: Denies any blood in urine. SKIN: Denies pruitis. Denies rash. PHYSICAL EXAM: VITAL SIGNS: Reviewed. GENERAL: Well-developed in no acute distress. HEENT: Head is normocephalic. Pupils are equal, round. Sclerae anicteric. Mucous membranes of the mouth are moist. Neck supple. No JVD or thyromegaly LUNGS: Respirations even and unlabored. Lungs essentially clear to auscultation bilaterally. HEART: Regular rate and rhythm. S1 and S2 heard. ABDOMEN: Soft. Nondistended. Nontender. EXTREMITIES: Normal range of motion. No clubbing or cyanosis. Peripheral pulses intact. No lower extremity edema NEUROLOGIC: Awake and alert. Oriented x 3. ASSESSMENT: Chest pain, troponins negative 3 Recurrent pericarditis PLAN: An acute coronary event has been ruled out Resume home cardiac medications No need to repeat echocardiogram as this was performed earlier this month Patient to undergo dobutamine stress test today If negative, she may be discharged home from a cardiac standpoint Nurse practitioner note has been reviewed by physician. Signing provider agrees with the documented findings, assessment, and plan of care. Past Medical History Past Medical History: Asthma Additional Past Medical History / Comment(s): Asthma, pneumonia History of Any Multi-Drug Resistant Organisms: None Reported Additional Past Surgical History / Comment(s): Hernia surgery, gastric sleeve, tummy tuck, right ankle surgery Past Psychological History: No Psychological Hx Reported Smoking Status: Never smoker Past Alcohol Use History: Occasional Past Drug Use History: None Reported - Past Family History Mother Family Medical History: Chest Pain / Angina Medications and Allergies Home Medications Medication Instructions Recorded Confirmed Type oxyCODONE HCL/ACETAMINOPHEN 1 tab PO TID PRN 02/28/22 04/09/22 History [Percocet 10-325 mg] Colchicine 0.6 mg PO BID #60 tablet 03/25/22 04/09/22 Rx Ibuprofen [Motrin] 600 mg PO Q8HR PRN #90 tab 03/25/22 04/09/22 Rx Pantoprazole [Protonix] 40 mg PO DAILY #30 tab 03/25/22 04/09/22 Rx predniSONE [Deltasone] 40 mg PO DAILY #30 tab 03/25/22 04/09/22 Rx Allergies Allergy/AdvReac Type Severity Reaction Status Date / Time codeine AdvReac Nausea & Verified 04/09/22 21:52 Vomiting Physical Exam Vitals: Vital Signs Temp Pulse Pulse Pulse Resp BP BP 04/10/22 08:53 66 04/10/22 07:00 97.8 F 66 15 119/78 04/10/22 03:01 98.2 F 60 17 130/85 04/10/22 02:14 61 16 125/82 04/09/22 19:25 76 76 14 130/76 04/09/22 16:59 97.2 F L 85 16 125/74 Pulse Ox 04/10/22 08:53 04/10/22 07:00 97 04/10/22 03:01 100 04/10/22 02:14 100 04/09/22 19:25 99 04/09/22 16:59 96 Intake and Output 04/09/22 04/10/22 04/10/22 22:59 06:59 14:59 Other: # Voids 1 Weight 72.575 kg 72.575 kg Results 04/09/22 17:12 04/09/22 17:12 Cardiac Enzymes 04/09/22 04/09/22 04/09/22 Range/Units 17:12 17:12 22:19 AST 24 (14-36) U/L Troponin I <0.012 <0.012 (0.000-0.034) ng/mL 04/10/22 Range/Units 01:02 AST (14-36) U/L Troponin I <0.012 (0.000-0.034) ng/mL Coagulation 04/09/22 Range/Units 17:12 PT 9.9 (9.0-12.0) sec APTT 21.7 L (22.0-30.0) sec Lipids 04/10/22 Range/Units 04:53 Triglycerides 89.30 (0.00-149.00) mg/dL Cholesterol 204.00 H (0.00-200.00) mg/dL HDL Cholesterol 81.50 H (40.00-60.00) mg/dL Cholesterol/HDL Ratio 2.50 Ratio CBC 04/09/22 Range/Units 17:12 WBC 13.1 H (3.8-10.6) k/uL RBC 3.74 L (3.80-5.40) m/uL Hgb 10.8 L (11.4-16.0) gm/dL Hct 34.1 (34.0-46.0) % Plt Count 336 (150-450) k/uL Comprehensive Metabolic Panel 04/09/22 Range/Units 17:12 Sodium 139 (137-145) mmol/L Potassium 4.3 (3.5-5.1) mmol/L Chloride 104 (98-107) mmol/L Carbon Dioxide 28 (22-30) mmol/L BUN 14 (7-17) mg/dL Creatinine 0.63 (0.52-1.04) mg/dL Glucose 98 (74-99) mg/dL Calcium 9.0 (8.4-10.2) mg/dL AST 24 (14-36) U/L ALT 33 (4-34) U/L Alkaline Phosphatase 52 (38-126) U/L Total Protein 6.2 L (6.3-8.2) g/dL Albumin 3.8 (3.5-5.0) g/dL Current Medications Generic Name Dose Route Start Last Admin Trade Name Freq PRN Reason Stop Dose Admin Colchicine 0.6 mg 04/10/22 09:00 04/10/22 08:44 Colchicine 0.6 Mg Each PO 0.6 mg BID YASMANY Administration Heparin Sodium (Porcine) 5,000 unit 04/10/22 08:00 04/10/22 08:45 Heparin Sodium,Porcine/Pf 5,000 Unit/0.5 Ml Syringe SQ 5,000 unit Q8HR YASMANY Administration Dobutamine HCl/Dextrose 500 mg 250 mls @ 21.773 mls/hr 04/10/22 08:16 / IV Solution IV 04/10/22 12:16 .[id number] PRN Per Protocol Protocol 10 MCG/KG/MIN Nitroglycerin 0.4 mg 04/09/22 21:29 Nitroglycerin Sl Tabs 0.4 Mg Tab SUBLINGUAL Q5M PRN Chest Pain Oxycodone/Acetaminophen 1 each 04/10/22 00:43 04/10/22 03:15 Oxycodone-Apap 10-325mg 1 Each Tab PO 1 each TID PRN Administration Pain Pantoprazole Sodium 40 mg 04/10/22 07:30 04/10/22 08:45 Pantoprazole 40 Mg Tablet PO 40 mg [id number] YASMANY Administration Prednisone 40 mg 04/10/22 09:00 04/10/22 08:45 Prednisone 20 Mg Tab PO 40 mg DAILY YASMANY Administration Intake and Output 04/09/22 04/10/22 04/10/22 22:59 06:59 14:59 Other: # Voids 1 Weight 72.575 kg 72.575 kg 04/09/22 17:12 04/09/22 17:12
--- NOTE | 2022-04-10 19:06 | P.PN ---
Subjective Progress Note Date: 04/10/22 (delayed charting seen at 0940) The patient is a 47-year-old female with asthma, recent diagnosis of pericarditis with effusion and multiple admissions now presents to the emergency room with substernal chest discomfort. The patient reports that following her recent discharge on 03/25, she has continued to use prednisone 40 mg oral daily. R EKG emergency room reveals sinus rhythm at 81 bpm with poor R-wave progression and T-wave flattening in leads V2 with inversion in lead V1. Laboratory evaluation revealed leukocytosis of 13.1, with troponin less than 0.012. she was admitted for futher monitoring. ESR and CRP were normal. She was seen by cardiology who recommended to do. Stress test. Patient seen and examined at bedside. She reports she has been struggling with fatigue, exhaustion, feelings as though her heart is racing since initial diagnosis of pericarditis. She finds this concerning that she has not gotten better. She reports she was feeling better and then suddenly she had sharp chest pain when getting dressed but did not rebut. She denies using her hands are doing heavy lifting. General: nontoxic, no distress, appears at stated age Derm: warm, dry Head: atraumatic, normocephalic, symmetric Eyes: EOMI, no lid lag, anicteric sclera Mouth: no lip lesion, mucus membranes moist Cardiovascular: S1S2 reg, no murmur, positive posterior tibial pulse bilateral, Lungs: CTA bilateral, no rhonchi, no rales , no accessory muscle use Abdominal: soft, nontender to palpation, no guarding, no appreciable organomegaly Ext: no gross muscle atrophy, no edema, no contractures Positive pain to internal and external rotation at the shoulder, no pain to movement of the biceps tendon, negative empty can test Neuro: CN II-XI grossly intact, no focal neuro deficits Psych: Alert, oriented, appropriate affect Chest pain -Doubt related to pericarditis as patient ESR and CRP are in the normal range. We'll continue with her prednisone taper, colchicine, and Protonix -Patient will need to follow-up with rheumatology in the outpatient setting as well as cardiology -Await stress test results Rotator cuff dysfunction -Outpatient physical therapy -Continue with NSAIDs -Continue to rotate heat and ice. Plan was for discharge home after stress test. However stress test results are still not available at 7:05 PM. Objective - Vital Signs Vital signs: Vital Signs Temp 98.3 F 04/10/22 14:28 Pulse 93 04/10/22 14:28 Resp 14 04/10/22 14:28 BP 112/71 04/10/22 14:28 Pulse Ox 99 04/10/22 14:28 FiO2 Intake & Output 04/10/22 04/10/22 04/11/22 06:59 18:59 06:59 Weight 72.575 kg Other: # Voids 1 1 - Labs CBC & Chem 7: 04/09/22 17:12 04/09/22 17:12 Labs: Abnormal Lab Results - Last 24 Hours (Table) 04/10/22 Range/Units 04:53 Cholesterol 204.00 H (0.00-200.00) mg/dL HDL Cholesterol 81.50 H (40.00-60.00) mg/dL
--- NOTE | 2022-04-10 20:51 | CA ---
Dobutamine Stress Echocardiogram Report Cesar Malik Age: 47 Gender: F : 1975 Exam Date: 04/10/2022 10:40 Exam Location: [facility] Ordering Physician: Vera Lowery Referring Physician: ABELARDO, Glass Laminating Operator: Amelie Harmon RDCS Technologist: Ht (in): 59 Wt (lb): 160 Procedure CPT: Indication: CP ICD-9 Codes: Rhythm: Patient History: Chest pain, short of breath and palpitations Cardiac Medications: Medications in past 24 hours: Contrast: Total Dose (mL): Stress Results Protocol: Peak Dose (???g/kg/min): 30 Duration (min:sec): Atropine:(mg) Target HR: 147 Double Product: [id number] Resting HR: 69 Resting BP: 123 / 77 Peak HR: 149 Peak BP: 179 / 90 Max Predicted HR: 173 86 % Max Predicted HR Stress Summary: BP Response: Reason for Termination: MAX EXERTION/TARGET HR,INFUSION COMPLETE Cardiac Symptoms: CHEST PAIN ECG Analysis Resting EKG: Stress EKG: Arrhythmia: Echo Analysis Base Echo Analysis: Low Echo Anaylsis: Peak Echo Analysis: Recovery Echo: MEASUREMENTS (Male/Female) Normal Values CONCLUSIONS Patient has been diagnosed with recurrent pericarditis Treated with colchicine and steroids Now with relapsing chest discomfort Normal cardiac enzymes A dobutamine stress echo was performed to evaluate for underlying ischemia in addition to recent, relapsing pericarditis Patient received dobutamine infusion per protocol No ECG evidence for ischemia Occasional PVCs noted She complained of 8 out of 10 chest discomfort Despite that EKGs remain normal without any ST segment abnormalities consistent with ischemia Baseline 2-D echo images were normal with normal function without any wall motion abnormalities With dobutamine there was a stepwise augmentation and overall LV contractility without development of any wall motion abnormalities Excellent myocardial thickening noted with dobutamine stress echo @Recovering lesional and global LV systolic function remain normal Impression No ECG or echocardiographic evidence for ischemia Patient had 8 out of chest discomfort during this normal dobutamine stress echo Suggest Discontinue steroids, continue colchicine, and sitter alternative new or strategy/medications for recurrent pericarditic pain Dr. Stephon Plunkett MD (Electronically Signed) Final Date: 10 April 2022 20:50
[2022-04-11] MEDS: oxyCODONE-APAP 10-325MG 1 EACH TAB PO PRN (01:52)
[2022-04-11] MEDS: HEPARIN SODIUM,PORCINE/PF 5,000 UNIT/0.5 ML SYRINGE SQ SCH ×2 (01:53→09:25)
[2022-04-11] MEDS: PANTOPRAZOLE 40 MG TABLET PO SCH (06:39)
[2022-04-11 08:42] VITALS: BP 155/69; PULSE 81; RESP 14; TEMP 98.1
[2022-04-11] MEDS ORDERED: INDOMETHACIN 25 MG CAP PO SCH (09:00)
[2022-04-11] MEDS: COLCHICINE 0.6 MG EACH PO SCH (09:24)
--- NOTE | 2022-04-11 09:34 | P.DS ---
Providers Date of admission: 04/09/22 21:29 Expected date of discharge: 04/11/22 Attending physician: Judson Prather MD Consults: 04/09/22 21:29 Consult Physician Routine Consulting Provider: Jones Rosenthal Consult Reason/Comments: chest pain Do you want consulting provider notified?: Yes Primary care physician: Stated None Hospital Course: Discharge Diagnosis: Recurrent pericarditis Left rotator cuff dysfunction History of asthma Hospital Course: The patient is a 47-year-old female with asthma, recent diagnosis of pe ricarditis with effusion and multiple admissions now presents to the emergency room with substernal chest discomfort. The patient reports that following her recent discharge on 03/25, she has continued to use prednisone 40 mg oral daily. EKG performed in the emergency room revealed sinus rhythm at 81 bpm with poor R-wave progression and T-wave flattening in leads V2 with inversion in lead V1. Laboratory evaluation revealed leukocytosis of 13.1, with troponin less than 0.012. she was admitted for futher monitoring. ESR and CRP were normal, troponin remained normal. She was seen by cardiology who recommended a dobutamine stress test. This was completed and was negative for signs of ischemia. Physical exam testing revealed rotator cuff dysfunction on the left. Physical therapy was recommended as well as alternating heat and ice. Cardiology recommended discontinuing her Motrin and steroid and starting indomethacin. Follow-up: Prescription for physical therapy was provided for the patient, she'll follow up with her primary care physician. She will stop her prednisone and Motrin. She will started on indomethacin. She'll follow with Dr. Rosenthal in 1 week. Patient seen and examined at bedside. Doing well. Pain is better. All questions answered. Vital signs reviewed and stable. General: nontoxic, no distress, appears at stated age Derm: warm, dry Head: atraumatic, normocephalic, symmetric Eyes: EOMI, no lid lag, anicteric sclera Mouth: no lip lesion, mucus membranes moist Cardiovascular: S1S2 reg, no murmur, positive posterior tibial pulse bilateral, Lungs: CTA bilateral, no rhonchi, no rales , no accessory muscle use Abdominal: soft, nontender to palpation, no guarding, no appreciable organomegaly Ext: no gross muscle atrophy, no edema, no contractures Neuro: CN II-XI grossly intact, no focal neuro deficits Psych: Alert, oriented, appropriate affect A total of 25 minutes of time were spent preparing this complex discharge summary. Patient was discharged on 04/11/22 . Patient Condition at Discharge: Good Plan - Discharge Summary Discharge Rx Participant: Yes New Discharge Prescriptions: New Indomethacin 25 mg PO BID #28 capsule Continue Colchicine 0.6 mg PO BID #60 tablet oxyCODONE HCL/ACETAMINOPHEN [Percocet 10-325 mg] 1 tab PO TID PRN PRN Reason: Pain Pantoprazole [Protonix] 40 mg PO DAILY #30 tab Discontinued predniSONE [Deltasone] 40 mg PO DAILY #30 tab Ibuprofen [Motrin] 600 mg PO Q8HR PRN #90 tab PRN Reason: Pain Discharge Medication List oxyCODONE HCL/ACETAMINOPHEN [Percocet 10-325 mg] 1 tab PO TID PRN 02/28/22 [History] Colchicine 0.6 mg PO BID #60 tablet 03/25/22 [Rx] Pantoprazole [Protonix] 40 mg PO DAILY #30 tab 03/25/22 [Rx] Indomethacin 25 mg PO BID #28 capsule 04/11/22 [Rx] Follow up Appointment(s)/Referral(s): Jones Rosenthal MD [STAFF PHYSICIAN] - 1 Week None,Stated [Primary Care Provider] - 1-2 days Patient Instructions/Handouts: Chronic Pericarditis (DC) Activity/Diet/Wound Care/Special Instructions: Activity: as tolerated Diet: Regular Special Instructions: Please call to scheduled Physical Therapy [facility] [place] [id number] [place] [address] Get Directions Please follow with your family doctor in 1-2 weeks. Discharge Disposition: HOME SELF-CARE
--- NOTE | 2022-04-11 10:07 | P.PN ---
Subjective Progress Note Date: 04/11/22 HISTORY OF PRESENT ILLNESS: This is a 47-year-old female with a past medical history significant for recurrent pericarditis. Patient follows in the office with Dr. Rosenthal. She apparently also sees a bundle clerk out of [place], [place]. We have been asked to see the patient in consultation for chest pain. Patient examined at the bedside. The patient was recently hospitalized for chest pain and recurrent pericarditis. She was discharged home in stable condition. She presents back to the hospital again for chest pain. This is the third admission recently. At home the patient is prescribed colchicine, Motrin, and prednisone. She denies any shortness of breath. She reports having a stress test recently at an outside facility but the results of that are unknown at this time. * EKG reveals sinus mechanism with no signs of acute ischemia. Patient's EKG is actually improved from her previous EKG which revealed diffuse ST elevation. * Chest xray there is evidence for some bilateral pleural effusions which are increased compared to exam. No heart failure. * Laboratory data: WBC 13.1. Hemoglobin 10.8. Platelet count 336. ESR 8. Sodium 139. Potassium 4.3. BUN 14. Creatinine 0.63. Troponin negative 3. CRP less than 0.5. * Current home cardiac medications include colchicine 0.6 mg twice a day * Most recent echocardiogram obtained in March 2022 revealed ejection fraction 55-60% with small pericardial effusion 04/11/22 Patient examined this morning at the bedside. Patient reports continued intermittent chest discomfort. She denies SOB. Vital signs are stable. Dobutamine stress echo negative for ischemia. PHYSICAL EXAM: VITAL SIGNS: Reviewed. GENERAL: Well-developed in no acute distress. HEENT: Head is normocephalic. Pupils are equal, round. Sclerae anicteric. Mucous membranes of the mouth are moist. Neck supple. No JVD or thyromegaly LUNGS: Respirations even and unlabored. Lungs essentially clear to auscultation bilaterally. HEART: Regular rate and rhythm. S1 and S2 heard. ABDOMEN: Soft. Nondistended. Nontender. EXTREMITIES: Normal range of motion. No clubbing or cyanosis. Peripheral pulses intact. No lower extremity edema NEUROLOGIC: Awake and alert. Oriented x 3. ASSESSMENT: Chest pain, troponins negative 3 Recurrent pericarditis PLAN: Discontinue steroids Continue additional medications Add indomethacin 25mg BID Patient may be discharged home today Nurse practitioner note has been reviewed by physician. Signing provider agrees with the documented findings, assessment, and plan of care. Objective - Vital Signs Vital signs: Vital Signs Temp 98.1 F 04/11/22 07:00 Pulse 81 04/11/22 07:00 Resp 14 04/11/22 07:00 BP 155/69 04/11/22 07:00 Pulse Ox 100 04/11/22 07:00 FiO2 Intake & Output 04/10/22 04/11/22 04/11/22 18:59 06:59 18:59 Other: Voiding Method Toilet # Voids 1 2 - Labs CBC & Chem 7: 04/09/22 17:12 04/09/22 17:12
== END 2022-04-11 10:43 | disposition home or self-care (01) ==
LOC: EC 16:48 → 6NMEDSUR 21:29
PROVIDERS: ADMIT Internal Medicine; ATTEND Internal Medicine
DX: R07.89 Other chest pain (principal); I31.9 Disease of pericardium, unspecified; J90 Pleural effusion, not elsewhere classified; M25.512 Pain in left shoulder; D72.829 Elevated white blood cell count, unspecified; E66.9 Obesity, unspecified; J45.909 Unspecified asthma, uncomplicated; Z79.899 Other long term (current) drug therapy; Z98.84 Bariatric surgery status; Z88.6 Allergy status to analgesic agent; Z68.32 Body mass index [BMI] 32.0-32.9, adult
CPT/HCPCS: 96372 ×2; 99285; 36415; 93005; 93351; 80061; 80053; 85652; 84484 ×2; 85025; 85610; 85730; 86140; 71046; G0378 ×3; J7512; J1644 ×2

== ENCOUNTER 2022-05-12 11:36 | Observation (INO) | payer OTHER ==
--- NOTE | 2022-05-12 12:21 | ED ---
Chest Pain HPI - General Chief Complaint: Chest Pain Stated Complaint: chest pain Time Seen by Provider: 05/12/22 11:58 Source: patient, RN notes reviewed Mode of arrival: ambulatory Limitations: no limitations - History of Present Illness Initial Comments: Patient is a 47 year old female presenting to the ER with a chief complaint of chest pain. Patient states this started last night with no known triggers. Patient states her pain is constant and located on the left side of her chest radiating up her neck and down to her hip. She reports taking pain medication last night and Gasx today for her symptoms with no relief. She denies fevers, chills, nightsweats, shortness of breath, chest palpitations, abdominal pain, diarrhea, constipation or dysuria. Patient was diagnosed with recurrent pericarditis at her last visit and follows up with cardiology. - Related Data Home Medications Medication Instructions Recorded Confirmed oxyCODONE HCL/ACETAMINOPHEN 1 tab PO Q3-4H PRN 02/28/22 05/12/22 [Percocet 10-325 mg] Albuterol Sulfate [Ventolin HFA] 1 - 2 puff INHALATION RT-QID PRN 05/12/22 05/12/22 Calcium Carbonate [Calcium] 600 mg PO DAILY 05/12/22 05/12/22 Cholecalciferol [Vitamin D3 (25 50 mcg PO DAILY 05/12/22 05/12/22 Mcg = 1000 Iu)] Dextroamphetamine/Amphetamine 30 mg PO DAILY 05/12/22 05/12/22 [Adderall Xr 30 mg Capsule] Ibuprofen [Motrin] 800 mg PO Q8H PRN 05/12/22 05/12/22 Multivitamins, Thera [Multivitamin 1 tab PO DAILY 05/12/22 05/12/22 (formulary)] Vitamin B Complex 1 cap PO DAILY 05/12/22 05/12/22 Allergies Allergy/AdvReac Type Severity Reaction Status Date / Time codeine AdvReac Nausea & Verified 05/12/22 15:07 Vomiting Review of Systems ROS Statement: Those systems with pertinent positive or pertinent negative responses have been documented in the HPI. ROS Other: All systems not noted in ROS Statement are negative. EKG Findings - EKG Comments: EKG Findings:: EKG performed at 12:09 sinus tach rate of 101. 138 QRS 75 QT/QTC 320 736 - EKG Results: EKG: interpreted by GEOVANNI Past Medical History Past Medical History: Asthma Additional Past Medical History / Comment(s): Asthma, pneumonia History of Any Multi-Drug Resistant Organisms: None Reported Additional Past Surgical History / Comment(s): Hernia surgery, gastric sleeve, tummy tuck, right ankle surgery Past Psychological History: No Psychological Hx Reported Smoking Status: Never smoker Past Alcohol Use History: Occasional Past Drug Use History: None Reported - Past Family History Mother Family Medical History: Chest Pain / Angina General Exam Limitations: no limitations General appearance: alert, in no apparent distress Head exam: Present: atraumatic, normocephalic, normal inspection Eye exam: Present: normal appearance, PERRL, EOMI. Absent: scleral icterus, conjunctival injection, periorbital swelling ENT exam: Present: normal exam, mucous membranes moist Neck exam: Present: normal inspection. Absent: tenderness, meningismus, lymphadenopathy Respiratory exam: Present: normal lung sounds bilaterally. Absent: respiratory distress, wheezes, rales, rhonchi, stridor Cardiovascular Exam: Present: regular rate, normal rhythm, normal heart sounds. Absent: systolic murmur, diastolic murmur, rubs, gallop, clicks GI/Abdominal exam: Present: soft, normal bowel sounds. Absent: distended, tenderness, guarding, rebound, rigid Extremities exam: Present: normal inspection, full ROM, normal capillary refill. Absent: tenderness, pedal edema, joint swelling, calf tenderness Back exam: Present: normal inspection, other (chest pain is reproducable with palpation ) Neurological exam: Present: alert, oriented X3, CN II-XII intact Psychiatric exam: Present: normal affect, normal mood Skin exam: Present: warm, dry, intact, normal color. Absent: rash Course Vital Signs 05/12/22 05/12/22 05/12/22 11:50 13:36 14:47 Temperature 98 F Pulse Rate 74 75 92 Respiratory 20 18 18 Rate Blood Pressure 123/67 107/68 105/85 O2 Sat by Pulse 100 100 99 Oximetry Chest Pain MDM - MDM 47-year-old female presents emergency Department for recurrent chest pain. This is worse with movement and deep inspiration. This may be muscle skeletal nature though patient has recurrent pericarditis that CRP is minimally elevated. I did discuss the case with Dr. Buenrostro who accepts admission for observation Disposition Clinical Impression: Chest pain, History of pericarditis Disposition: ADMITTED IP TO THIS HOSP Referrals: Nonstaff,Physician [Primary Care Provider] - 1-2 days Time of Disposition: 15:20
--- NOTE | 2022-05-12 12:36 | XR ---
EXAMINATION TYPE: XR chest 2V DATE OF EXAM: 05/12/2022 COMPARISON: Chest x-ray April 10, 2022 HISTORY: Chest pain. TECHNIQUE: Frontal and lateral views of the chest are obtained. FINDINGS: There is no suspicious focal air space opacity, pleural effusion, or pneumothorax seen. T he cardiac silhouette size is stable and within normal limits. The osseous structures are intact. IMPRESSION: No acute process currently.
[2022-05-12 12:39] LABS: Basophils # (A) 0.1 k/uL (0-0.2); Basophils % (A) 0 %; Eosinophils # (A) 0.3 k/uL (0-0.7); Eosinophils % (A) 2 %; HCT 38.3 % (34.0-46.0); HGB 12.1 gm/dL (11.4-16.0); Hypochromasia Marked; Lymphocytes % (A) 12 %; MCH 27.6 pg (25.0-35.0); MCHC 31.6 g/dL (31.0-37.0); MCV 87.5 fL (80.0-100.0); Mean Platelet Volume 7.4; Monocytes # (A) 0.7 k/uL (0-1.0); Monocytes % (A) 4 %; Neutrophils # (A) 13.2 k/uL (1.3-7.7); Neutrophils % (A) 81 %; Platelet Count 518 k/uL (150-450); RBC 4.38 m/uL (3.80-5.40); RDW 15.6 % (11.5-15.5); WBC 16.4 k/uL (3.8-10.6)
[2022-05-12 12:52] LABS: INR 0.9 (<1.2); Partial Thromboplastin Time 25.6 sec (22.0-30.0); Prothrombin Time 10.3 sec (9.0-12.0)
[2022-05-12 13:04] LABS: ALT 21 U/L (4-34); AST 27 U/L (14-36); African American GFR (CKD) >90 (>60 ml/min/1.73 sqM); Albumin 4.4 g/dL (3.5-5.0); Alkaline Phosphatase 79 U/L (38-126); Anion Gap 9 mmol/L; Blood Urea Nitrogen 22 mg/dL (7-17); Calcium 9.4 mg/dL (8.4-10.2); Carbon Dioxide 25 mmol/L (22-30); Chloride 104 mmol/L (98-107); Glucose 94 mg/dL (74-99); Lipase 55 U/L (23-300); Magnesium 2.2 mg/dL (1.6-2.3); Non-African American GFR(CKD) >90 (>60 ml/min/1.73 sqM); Potassium 5.5 mmol/L (3.5-5.1); Sodium 138 mmol/L (137-145); Total Bilirubin 0.6 mg/dL (0.2-1.3); Total Protein 7.7 g/dL (6.3-8.2)
[2022-05-12] MEDS ORDERED: ALBUTEROL NEBULIZED 2.5 MG/3 ML INHALATION PRN (15:19)
[2022-05-12] MEDS ORDERED: oxyCODONE-APAP 10-325MG 1 EACH TAB PO STA (15:19)
[2022-05-12] MEDS ORDERED: oxyCODONE-APAP 10-325MG 1 EACH TAB PO PRN (15:19)
[2022-05-12] MEDS ORDERED: IBUPROFEN 800 MG TAB PO PRN (15:19)
[2022-05-12] MEDS ORDERED: NITROGLYCERIN SL TABS 0.4 MG TAB SUBLINGUAL PRN (15:21)
[2022-05-12] MEDS ORDERED: ASPIRIN 81 MG PO STA (15:21)
[2022-05-12] MEDS ORDERED: NALOXONE 0.4 MG/ML 1 ML VIAL IVP PRN (15:45)
[2022-05-12] MEDS ORDERED: ONDANSETRON 4 MG/2 ML VIAL IVP PRN (15:45)
[2022-05-12] MEDS ORDERED: MELATONIN 3 MG TABLET PO PRN (15:45)
[2022-05-12] MEDS ORDERED: ALPRAZolam 0.5 MG TABLET PO PRN (15:45)
--- NOTE | 2022-05-12 15:52 | P.HPIM ---
History of Present Illness H&P Date: 05/12/22 Patient is a 47-year-old female with a history of recurrent pericarditis last admission through 04/11 with recurrent pericarditis, asthma, and prior gastric sleeve surgery who presented to the ER with complaints of chest pain. In the ER she underwent an extensive evaluation. On arrival her vital signs were within normal limits. Laboratory analysis was remarkable for a white blood cell count of 16.4, platelet count of 518, potassium 5.5, and CRP of 2.2. Troponin was negative at less than 0.012. She was given a dose of aspirin. Arrangements are made for admission. Patient seen and examined at bedside. She reports that things were going well up until yesterday. She was sitting and watching TV when she first noticed her ears ringing and then pain down both sides of her neck which finally settled on the left side of her chest. She also noted some shortness of breath. She states the pain is worse with movement and taking a deep breath. It is very similar to her pericarditis pain in the past. She reports that she last saw [facility] approximately one month ago. She finished her pericarditis medications approximately 2-3 weeks ago. She had been doing well but had not returned to work up until yesterday. She does note some runny nose but denies any recent fe alexandra or cough. She denies any known sick contacts. Pertinent positives and negatives as discussed in HPI, a complete review of systems was performed and all other systems are negative. Vital signs reviewed General: nontoxic, no distress, appears at stated age Derm: warm, dry Head: atraumatic, normocephalic, symmetric Eyes: EOMI, no lid lag, anicteric sclera ENT: Nose and ears atraumatic Neck: No thyromegaly, no cervical lymphadenopathy, trachea midline, supple Mouth: no lip lesion, mucus membranes moist Cardiovascular: S1S2 reg, no murmur, positive posterior tibial pulse bilateral, no edema, Lungs: clear to auscultation bilateral, no rhonchi, no rales, no wheeze, no accessory muscle use Abdominal: soft, nontender to palpation, no guarding, no appreciable organomegaly, normal bowel sounds Ext: no gross muscle atrophy, Moveing all 4 extremities independently, no contractures Neuro: CN II-XII grossly intact, no focal neurodeficits Psych: Alert, oriented, appropriate affect Assessment/Plan: Recurrent pericarditis -Cardiology consultation -Telemetry monitoring -Pain control -Check limited echo -Last hospital stay were considering rilonacept -Check for COVID-19, flu, and RSV -CRP mildly elevated, will need to continue to follow. Leukocytosis with thrombocytosis -Suspect reactive -Follow CBC Hyperkalemia, mild -Recheck in a.m. Asthma without exacerbation - prn albuterol The patient is admitted with an anticipated less than 2 midnight stay for evaluation of chest pain DVT prophylaxis: SCDs Discussed with: patient, nursing, ED clinician Anticipated discharge date: pending clinical course Anticipated discharge place: home A total of 25 minutes was spent on the care of this complex patient more than 50% of the time was spent in counseling and care coordination. Past Medical History Past Medical History: Asthma Additional Past Medical History / Comment(s): Asthma, pneumonia History of Any Multi-Drug Resistant Organisms: None Reported Additional Past Surgical History / Comment(s): Hernia surgery, gastric sleeve, tummy tuck, right ankle surgery Past Psychological History: No Psychological Hx Reported Smoking Status: Never smoker Past Alcohol Use History: Occasional Past Drug Use History: None Reported - Past Family History Mother Family Medical History: Chest Pain / Angina Medications and Allergies Home Medications Medication Instructions Recorded Confirmed Type oxyCODONE HCL/ACETAMINOPHEN 1 tab PO Q3-4H PRN 02/28/22 05/12/22 History [Percocet 10-325 mg] Albuterol Sulfate [Ventolin HFA] 1 - 2 puff INHALATION RT-QID PRN 05/12/22 05/12/22 History Calcium Carbonate [Calcium] 600 mg PO DAILY 05/12/22 05/12/22 History Cholecalciferol [Vitamin D3 (25 50 mcg PO DAILY 05/12/22 05/12/22 History Mcg = 1000 Iu)] Dextroamphetamine/Amphetamine 30 mg PO DAILY 05/12/22 05/12/22 History [Adderall Xr 30 mg Capsule] Ibuprofen [Motrin] 800 mg PO Q8H PRN 05/12/22 05/12/22 History Multivitamins, Thera [Multivitamin 1 tab PO DAILY 05/12/22 05/12/22 History (formulary)] Vitamin B Complex 1 cap PO DAILY 05/12/22 05/12/22 History Allergies Allergy/AdvReac Type Severity Reaction Status Date / Time codeine AdvReac Nausea & Verified 05/12/22 15:07 Vomiting Physical Exam Osteopathic Statement: *. No significant issues noted on an osteopathic structural exam other than those noted in the History and Physical/Consult. Vitals: Vital Signs Temp Pulse Resp BP Pulse Ox 05/12/22 14:47 92 18 105/85 99 05/12/22 13:36 75 18 107/68 100 05/12/22 11:50 98 F 74 20 123/67 100 Intake and Output 05/12/22 05/12/22 05/12/22 06:59 14:59 22:59 Other: Weight 72.575 kg Results CBC & Chem 7: 05/12/22 12:23 05/12/22 12:23 Labs: Abnormal Lab Results - Last 24 Hours (Table) 05/12/22 05/12/22 05/12/22 Range/Units 12:23 12:23 12:23 WBC 16.4 H (3.8-10.6) k/uL RDW 15.6 H (11.5-15.5) % Plt Count 518 H (150-450) k/uL Neutrophils # 13.2 H (1.3-7.7) k/uL Potassium 5.5 H (3.5-5.1) mmol/L BUN 22 H (7-17) mg/dL C-Reactive Protein 2.2 H (<1.0) mg/dL
[2022-05-12] MEDS: MORPHINE SULFATE 4 MG/ML SYRINGE IVP PRN ×2 (16:04→21:22)
[2022-05-12] MEDS ORDERED: INDOMETHACIN 25 MG CAP PO SCH (21:00)
[2022-05-13] MEDS: MORPHINE SULFATE 4 MG/ML SYRINGE IVP PRN ×3 (08:18→19:03)
[2022-05-13] MEDS ORDERED: NON FORMULARY DRUG (Vitamin B Complex [Vitamin B Complex] 1 EACH Capsule) PO SCH (09:00)
[2022-05-13] MEDS ORDERED: ASPIRIN 325 MG TAB PO SCH (09:00)
[2022-05-13 09:09] LABS: HCT 34.8 % (37.2-46.3); HGB 10.6 g/dL (12.0-15.0); MCH 26.9 pg (27.0-32.0); MCHC 30.5 g/dL (32.0-37.0); MCV 88.3 fL (80.0-97.0); Mean Platelet Volume 9.6 fL (9.5-12.2); NRBC Per 100 WBC 0 /100 WBCS (0.0-0.0); Platelet Count 439 X 10*3/uL (140-440); RBC 3.94 X 10*6/uL (4.10-5.20); RDW 16.3 % (11.5-14.5)
[2022-05-13] MEDS: CHOLECALCIFEROL 25 MCG (1000 IU) TABLET PO SCH (09:13)
[2022-05-13] MEDS: CALCIUM CARBONATE 500 MG CHEWABLE PO SCH (09:13)
[2022-05-13] MEDS: MULTIVITAMINS, THERA 1 EACH TAB PO SCH (09:14)
[2022-05-13 09:23] LABS: African American GFR (CKD) 119.6 (60.0-200.0); BUN/Creat Ratio 25.43 Ratio (12.00-20.00); Blood Urea Nitrogen 17.8 mg/dL (9.0-27.0); C Reactive Protein 9.6 mg/dL (0.00-0.80); Calcium 9.3 mg/dL (8.7-10.3); HDL Cholesterol 63.4 mg/dL (40.00-60.00); Non-African American GFR(CKD) 103.2 (60.0-200.0); Potassium 4.7 mmol/L (3.5-5.5); Triglycerides 68.8 mg/dL (0.00-149.00)
[2022-05-13] MEDS: COLCHICINE 0.6 MG EACH PO SCH ×2 (09:49→21:47)
--- NOTE | 2022-05-13 11:56 | CA ---
Transthoracic Echo Report Name: Cesar Malik Age: 47 Gender: F : 1975 Exam Date: 05/13/2022 09:52 Exam Location: [facility] Ht (in): 52 Wt (lb): 160 Ordering Physician: Danitza Kumar DO Attending/Referring Phys: [id number], José Frame Catcher Darlene Mckee, PRISCILA Procedure CPT: Indications: pericarditis Cardiac Hx: Limited Echo for pericarditis: Echo 04/10/22. Technical Quality: Good Contrast 1: Total Dose (mL): Contrast 2: Total Dose (mL): MEASUREMENTS (Male / Female) Normal Values FINDINGS Left Ventricle Left ventricular ejection fraction is estimated at 60%. Right Ventricle Normal right ventricular size and function. Right Atrium Normal right atrial size. Left Atrium Normal left atrial size. Mitral Valve Structurally normal mitral valve. Mild mitral regurgitation. Aortic Valve Trileaflet aortic valve. Tricuspid Valve Structurally normal tricuspid valve. Mild tricuspid regurgitation. Pulmonic Valve Structurally normal pulmonic valve. Pericardium Trace pericardial effusion Aorta Normal size aortic root and proximal ascending aorta. CONCLUSIONS Normal LV size and function. There is a minimal amount of pericardial fluid much improved from last study from late March Previewed by: Dr. Michelle Marsh MD (Electronically Signed) Final Date: 13 May 2022 11:55
--- NOTE | 2022-05-13 14:34 | P.PN ---
Subjective Progress Note Date: 05/13/22 Patient was seen and examined. No acute events overnight. Patient reports continued chest pain. Pain is 8/10 in severity. Vital signs reviewed General: nontoxic, no distress, appears at stated age Derm: warm, dry Head: atraumatic, normocephalic, symmetric Eyes: EOMI, no lid lag, anicteric sclera ENT: Nose and ears atraumatic Neck: No thyromegaly, no cervical lymphadenopathy, trachea midline, supple Mouth: no lip lesion, mucus membranes moist Cardiovascular: S1S2 reg, no murmur, no edema Lungs: clear to auscultation bilateral, no rhonchi, no rales, no wheeze, no accessory muscle use Ext: no gross muscle atrophy, Moveing all 4 extremities independently, no contractures Neuro: no focal neurodeficits Psych: Alert, oriented, appropriate affect #Recurrent pericarditis -Cardiology consultation -Troponins trended and ACS ruled out -Telemetry monitoring -Pain control -Echo shows normal LV with minimal pericardial fluid -Last hospital stay were considering rilonacept -COVID-19, flu, and RSV negative -CRP mildly elevated, will need to continue to follow #Leukocytosis with thrombocytosis -Suspect reactive -Follow CBC #Asthma without exacerbation -PRN albuterol #Dyslipidemia -Dietary modification Resolved: Hyperkalemia, mild Patient needs better pain control. Cardiology consultation pending. Anticipate DC home tomorrow. Objective - Vital Signs Vital signs: Vital Signs Temp 97.6 F 05/13/22 06:45 Pulse 80 05/13/22 06:45 Resp 16 05/13/22 06:45 BP 96/68 05/13/22 06:45 Pulse Ox 99 05/13/22 06:45 FiO2 Intake & Output 05/12/22 05/13/22 05/13/22 18:59 06:59 18:59 Intake Total 1000 Balance 1000 Weight 72.575 kg Intake: Oral 1000 Other: Voiding Method Toilet # Voids 1 - Labs CBC & Chem 7: 05/13/22 05:41 05/13/22 05:41 Labs: Abnormal Lab Results - Last 24 Hours (Table) 05/12/22 05/13/22 05/13/22 Range/Units 12:23 05:41 05:41 WBC 10.50 H (4.50-10.00) X 10*3/uL RBC 3.94 L (4.10-5.20) X 10*6/uL Hgb 10.6 L (12.0-15.0) g/dL Hct 34.8 L (37.2-46.3) % MCH 26.9 L (27.0-32.0) pg MCHC 30.5 L (32.0-37.0) g/dL RDW 16.3 H (11.5-14.5) % BUN/Creatinine Ratio 25.43 H (12.00-20.00) Ratio C-Reactive Protein 2.2 H 9.60 H (<1.0) mg/dL Cholesterol 204.00 H (0.00-200.00) mg/dL HDL Cholesterol 63.40 H (40.00-60.00) mg/dL
--- NOTE | 2022-05-13 22:37 | CONS ---
CONSULTATION HISTORY OF PRESENT ILLNESS: This patient is 47 years of age. She has had recurrent hospitalization with chest pain and had a negative dobutamine stress test. She carries a diagnosis of recurrent pericarditis. EKG today revealed sinus mechanism with J-point prominence. There is no significant AK depression. Her last echo in late March revealed a small pericardial effusion. She has a pleuritic type of chest pain, but pericardial rub is not audible. Chest x-ray is unremarkable. She is resting comfortably without symptoms. Her colchicine was stopped on the and she has been placed on indomethacin. She was also on steroids in the past, but currently she is not on steroids. She had a dobutamine echo, which was unremarkable. Please refer to a recent consultation that is available in the chart from April 10. MEDICATIONS: Medications at home include: 1. Motrin. 2. Calcium supplements. 3. She takes oxycodone for pain. 4. Percocet. 5. Albuterol inhaler. ALLERGIES: She is allergic to codeine, not clear what kind of allergy this is. PHYSICAL EXAMINATION: VITAL SIGNS: On examination, blood pressure is 118/70, pulse rate is 74 per minute, regular. HEENT: Unremarkable. Fundus was not examined by me. NECK: Supple. No JVD. I do not hear a carotid bruit. HEART: Exam reveals S1, S2. No evidence of any significant rub, murmur, or gallop. LUNGS: Reveal bilateral decent air entry. ABDOMEN: Soft, nontender. LOWER EXTREMITIES: Reveal diminished pulses. CENTRAL NERVOUS SYSTEM: Normal. EKG revealed a sinus mechanism, J-point prominence. No AK depression. IMPRESSION: 1. Pleuritic-type of chest pain. No evidence by EKG or clinical exam of pericarditis, but the patient's pain certainly suggests that a pericarditis could be a manifestation of recurrent pericarditis. 2. No evidence of ischemia. 3. Laboratory data suggests no evidence of any troponin. RECOMMENDATIONS: I am recommending that we will obtain a limited echo to look for any pericardial effusion. I am also suggesting that we resume colchicine 0.6 mg b.i.d. for at least another 4 to 5 weeks as long as her labs are okay. At this time, her chemistry profile, liver functions, and CBC are normal. White count however is elevated on arrival, now it is back to 10.5 today. I will recommend echocardiogram to continue colchicine and also avoid nonsteroidals unless the pain is very severe. I discussed my thoughts in detail with the patient. I would consider this as recurrent pericarditis and based on clinical scenario, we will make further recommendations. SERGIO / NHUNG: [id number] /
[2022-05-14] MEDS: MORPHINE SULFATE 4 MG/ML SYRINGE IVP PRN ×2 (01:34→07:42)
[2022-05-14] MEDS: CALCIUM CARBONATE 500 MG CHEWABLE PO SCH (07:41)
[2022-05-14] MEDS: COLCHICINE 0.6 MG EACH PO SCH (07:41)
[2022-05-14] MEDS: MULTIVITAMINS, THERA 1 EACH TAB PO SCH (07:42)
[2022-05-14] MEDS: CHOLECALCIFEROL 25 MCG (1000 IU) TABLET PO SCH (07:42)
[2022-05-14 08:24] VITALS: RESP 18
[2022-05-14] MEDS: KETOROLAC 15 MG/ML 1 ML VIAL IVP SCH ×2 (09:27→15:39)
--- NOTE | 2022-05-14 11:21 | P.PN ---
Subjective This is a 47-year-old female with a past medical history significant for recurrent pericarditis, asthma. Patient follows in the office with Dr. Rosenthal. She apparently also sees a charter bus driver out of [place], [place]. We have been asked to see the patient in consultation for chest pain. Patient examined at the bedside. She presented with chest pain and recurrent pericarditis. She has been restarted on colchicine and give IV morphine and percocet. Repeat EKG revealed sinus rhythm, heart rate 82, ST changes have improved from prior EKGs. She underwent a limited echocardiogram and that revealed an EF of 60% and minimal amount of pericardial fluid much improved from last study in March 2022. Patient seen and examined at bedside, no acute distress but continues to have significant pain, she is upset about her diagnosis and concerned how long she will be in pain for. No acute events overnight. Vital signs are stable. PHYSICAL EXAM: VITAL SIGNS: Reviewed. GENERAL: Well-developed in no acute distress. HEENT: Head is normocephalic. Neck supple. No JVD LUNGS: Respirations even and unlabored. Lungs essentially clear to auscultation bilaterally. HEART: Regular rate and rhythm. S1 and S2 heard. ABDOMEN: Soft. Nondistended. Nontender. EXTREMITIES: Normal range of motion. No clubbing or cyanosis. Peripheral pulses intact. No lower extremity edema NEUROLOGIC: Awake and alert. Oriented x 3. ASSESSMENT: Chest pain, troponins negative 3 Recurrent pericarditis History of asthma Hyperkalemia PLAN: An acute coronary event has been ruled out No steroids Recommend continuing colchicine with Percocet. Close follow up outpatient No further changes from a cardiology perspective at this time. Nurse practitioner note has been reviewed by physician. Signing provider agrees with the documented findings, assessment, and plan of care. Objective - Vital Signs Vital signs: Vital Signs Temp 98.1 F 05/14/22 07:00 Pulse 88 05/14/22 07:00 Resp 18 05/14/22 07:00 BP 99/70 05/14/22 07:00 Pulse Ox 100 05/14/22 07:00 FiO2 Intake & Output 05/13/22 05/14/22 05/14/22 18:59 06:59 18:59 Intake Total 120 Balance 120 Intake: Oral 120 Other: Voiding Method Toilet # Voids 1 1 - Labs CBC & Chem 7: 05/13/22 05:41 05/13/22 05:41
--- NOTE | 2022-05-14 14:40 | P.DS ---
Providers Date of admission: 05/12/22 15:45 Expected date of discharge: 05/14/22 Attending physician: Danitza Kumar DO Consults: 05/12/22 15:45 Consult Physician Routine Consulting Provider: [facility] Consult Reason/Comments: Pericarditis Do you want consulting provider notified?: Yes Primary care physician: Physician Nonstaff Hospital Course: Patient is a 47-year-old female with a history of recurrent pericarditis last admission through 04/11 with recurrent pericarditis, asthma, and prior gastric sleeve surgery who presented to the ER with complaints of chest pain. In the ER she underwent an extensive evaluation. On arrival her vital signs were within normal limits. Laboratory analysis was remarkable for a white blood cell count of 16.4, platelet count of 518, potassium 5.5, and CRP of 2.2. Troponin was negative at less than 0.012. She was given a dose of aspirin. Arrangements are made for admission. Patient seen and examined at bedside. She reports that things were going well up until yesterday. She was sitting and watching TV when she first noticed her ears ringing and then pain down both sides of her neck which finally settled on the left side of her chest. She also noted some shortness of breath. She states the pain is worse with movement and taking a deep breath. It is very similar to her pericarditis pain in the past. She reports that she last saw [facility] approximately one month ago. She finished her pericarditis medications approximately 2-3 weeks ago. She had been doing well but had not returned to work up until yesterday. She does note some runny nose but denies any recent fever or cough. She denies any known sick contacts. Cardiology was consulted and recommended echocardiogram. Echocardiogram showed normal LV function with minimal pericardial fluid. COVID-19, influenza and RSV was negative. Cardiology recommended initiating colchicine. Patient was seen and examined. She is requesting morphine. She complains of 9 out of 10 pain but appears to be comfortable. Pertinent studies include Echocardiogram. General: nontoxic, no distress, appears at stated age Derm: warm, dry Head: atraumatic, normocephalic, symmetric Eyes: EOMI, no lid lag, anicteric sclera ENT: Nose and ears atraumatic Neck: No thyromegaly, no cervical lymphadenopathy, trachea midline, supple Mouth: no lip lesion, mucus membranes moist Cardiovascular: S1S2 reg, no murmur, no edema Lungs: clear to auscultation bilateral, no rhonchi, no rales, no wheeze, no accessory muscle use Ext: no gross muscle atrophy, Moveing all 4 extremities independently, no contractures Neuro: no focal neurodeficits Psych: Alert, oriented, appropriate affect Discharge Diagnosis: #Recurrent pericarditis #Leukocytosis with thrombocytosis #Asthma without exacerbation #Dyslipidemia Resolved: Hyperkalemia, mild Patient is advised to follow up with her pain management doctor for adjustment in her pain medication. She is advised to continue taking Colchicine. She is reassured. She is advised to follow up with Cardiology within 1 week of discharge. Patient Condition at Discharge: Stable Plan - Discharge Summary New Discharge Prescriptions: New Colchicine [Colcrys] 0.6 mg PO BID #60 each Ketorolac [Toradol] 10 mg PO Q6HR #20 tab Continue Albuterol Sulfate [Ventolin HFA] 1 - 2 puff INHALATION RT-QID PRN PRN Reason: Shortness Of Breath Calcium Carbonate [Calcium] 600 mg PO DAILY oxyCODONE HCL/ACETAMINOPHEN [Percocet 10-325 mg] 1 tab PO Q3-4H PRN PRN Reason: Pain Cholecalciferol [Vitamin D3 (25 Mcg = 1000 Iu)] 50 mcg PO DAILY Dextroamphetamine/Amphetamine [Adderall Xr 30 mg Capsule] 30 mg PO DAILY Multivitamins, Thera [Multivitamin (formulary)] 1 tab PO DAILY Vitamin B Complex 1 cap PO DAILY Discontinued Ibuprofen [Motrin] 800 mg PO Q8H PRN PRN Reason: Pain Discharge Medication List oxyCODONE HCL/ACETAMINOPHEN [Percocet 10-325 mg] 1 tab PO Q3-4H PRN 02/28/22 [History] Albuterol Sulfate [Ventolin HFA] 1 - 2 puff INHALATION RT-QID PRN 05/12/22 [History] Calcium Carbonate [Calcium] 600 mg PO DAILY 05/12/22 [History] Cholecalciferol [Vitamin D3 (25 Mcg = 1000 Iu)] 50 mcg PO DAILY 05/12/22 [History] Dextroamphetamine/Amphetamine [Adderall Xr 30 mg Capsule] 30 mg PO DAILY 05/12/22 [History] Multivitamins, Thera [Multivitamin (formulary)] 1 tab PO DAILY 05/12/22 [History] Vitamin B Complex 1 cap PO DAILY 05/12/22 [History] Colchicine [Colcrys] 0.6 mg PO BID #60 each 05/14/22 [Rx] Ketorolac [Toradol] 10 mg PO Q6HR #20 tab 05/14/22 [Rx] Follow up Appointment(s)/Referral(s): Jones Rosenthal MD [STAFF PHYSICIAN] - 1 Week Nonstaff,Physician [Primary Care Provider] - 1-2 days Activity/Diet/Wound Care/Special Instructions: Diet: Regular Take all medications as advised. Follow up with Cardiology within 1 week of discharge. Discharge Disposition: HOME SELF-CARE
[2022-05-14 15:12] VITALS: BP 98/70; PULSE 87; TEMP 98
== END 2022-05-14 16:50 | disposition home or self-care (01) ==
LOC: EC 11:36 → 6NMEDSUR 15:45
PROVIDERS: ADMIT Internal Medicine; ATTEND Internal Medicine
DX: I31.9 Disease of pericardium, unspecified (principal); J45.909 Unspecified asthma, uncomplicated; D72.829 Elevated white blood cell count, unspecified; D75.839 Thrombocytosis, unspecified; I31.39 Other pericardial effusion (noninflammatory); E87.5 Hyperkalemia; I08.1 Rheumatic disorders of both mitral and tricuspid valves; E78.5 Hyperlipidemia, unspecified; Z79.899 Other long term (current) drug therapy; Z98.84 Bariatric surgery status; Z88.5 Allergy status to narcotic agent; Z20.822 Contact with and (suspected) exposure to COVID-19
CPT/HCPCS: 96375; 96376 ×3; 96374; 99285; 36415; 93005; 93308; 83880; 80053; 80048; 82465; 83718; 83690; 83735; 84478; 84484; 85025; 85027; 85610; 85730; 86140 ×2; 87636; 71046; G0378 ×3; J2270 ×3; J1885

== ENCOUNTER 2022-12-27 13:43 | Observation (INO) | payer OTHER ==
[2022-12-27] MEDS ORDERED: ASPIRIN 81 MG PO STA (14:18)
[2022-12-27] MEDS ORDERED: NITROGLYCERIN OINT 1 INCH/GM PACKET TOPICAL STA (14:18)
--- NOTE | 2022-12-27 14:26 | ED ---
General Adult HPI - General Chief complaint: Chest Pain Stated complaint: Chest pains Time Seen by Provider: 12/27/22 13:45 Source: patient, RN notes reviewed, old records reviewed Mode of arrival: ambulatory Limitations: no limitations - History of Present Illness Initial comments: This a 47-year-old female presents emergency Department with a past medical history significant for pericarditis. Patient states she's been having intermittent chest pain since Thursday. Patient states it also is associated with shortness of breath and occasional sweating. Patient denies any nausea. Patient denies any radiation of the pain. Patient denies any headache patient denies numbness weakness. Patient any recent fever chills or cough per patient denies abdominal pain patient denies any nausea or vomiting. Patient denies any swelling to the legs or calf tenderness - Related Data Home Medications Medication Instructions Recorded Confirmed oxyCODONE HCL/ACETAMINOPHEN 1 tab PO Q3-4H PRN 02/28/22 05/12/22 [Percocet 10-325 mg] Albuterol Sulfate [Ventolin HFA] 1 - 2 puff INHALATION RT-QID PRN 05/12/22 05/12/22 Calcium Carbonate [Calcium] 600 mg PO DAILY 05/12/22 05/12/22 Cholecalciferol [Vitamin D3 (25 50 mcg PO DAILY 05/12/22 05/12/22 Mcg = 1000 Iu)] Dextroamphetamine/Amphetamine 30 mg PO DAILY 05/12/22 05/12/22 [Adderall Xr 30 mg Capsule] Multivitamins, Thera [Multivitamin 1 tab PO DAILY 05/12/22 05/12/22 (formulary)] Vitamin B Complex 1 cap PO DAILY 05/12/22 05/12/22 Previous Rx's Medication Instructions Recorded Colchicine [Colcrys] 0.6 mg PO BID #60 each 05/14/22 Ketorolac [Toradol] 10 mg PO Q6HR #20 tab 05/14/22 Allergies Allergy/AdvReac Type Severity Reaction Status Date / Time codeine AdvReac Nausea & Verified 12/27/22 13:48 Vomiting Review of Systems ROS Statement: Those systems with pertinent positive or pertinent negative responses have been documented in the HPI. ROS Other: All systems not noted in ROS Statement are negative. Past Medical History Past Medical History: Asthma Additional Past Medical History / Comment(s): Asthma, pneumonia recurrent pericarditis History of Any Multi-Drug Resistant Organisms: None Reported Additional Past Surgical History / Comment(s): Hernia surgery, gastric sleeve, tummy tuck, right ankle surgery Past Psychological History: No Psychological Hx Reported Smoking Status: Never smoker Past Alcohol Use History: Occasional Past Drug Use History: None Reported - Past Family History Mother Family Medical History: Chest Pain / Angina General Exam - General Exam Comments Initial Comments: GENERAL: Patient is well-developed and well-nourished. Patient is nontoxic and well- hydrated and is in mild distress. ENT: Neck is soft and supple. No significant lymphadenopathy is noted. Oropharynx is clear. Moist mucous membranes. Neck has full range of motion without eliciting any pain. EYES: The sclera were anicteric and conjunctiva were pink and moist. Extraocular movements were intact and pupils were equal round and reactive to light. Eyelids were unremarkable. PULMONARY: Unlabored respirations. Good breath sounds bilaterally. No audible rales rhonchi or wheezing was noted. CARDIOVASCULAR: There is a regular rate and rhythm without any murmurs gallops or rubs. ABDOMEN: Soft and nontender with normal bowel sounds. SKIN: Skin is clear with no lesions or rashes and otherwise unremarkable. NEUROLOGIC: Patient is alert and oriented x3. Cranial nerves II through XII are grossly intact. Motor and sensory are also intact. Normal speech, volume and content. Symmetrical smile. MUSCULOSKELETAL: Normal extremities with adequate strength and full range of motion. LYMPHATICS: No significant lymphadenopathy is noted PSYCHIATRIC: Normal psychiatric evaluation. Limitations: no limitations Course Vital Signs 12/27/22 13:45 Temperature 98.9 F Pulse Rate 72 Respiratory 18 Rate Blood Pressure 122/73 O2 Sat by Pulse 100 Oximetry Medical Decision Making - Medical Decision Making EKG was interpreted by myself shows a sinus rhythm at 97 bpm VT interval 151 QRSs 80 QT interval 336 QTC is 391 per patient's EKG shows no ST segment elevation or depression. Was pt. sent in by a medical professional or institution (, PA, RN MEDICAL INPATIENT SERVICES, urgent care, hospital, or care home...) When possible be specific @ -[No] Did you speak to anyone other than the patient for history (EMS, parent, family, police, friend...)? What history was obtained from this source @ -[No] Did you review nursing and triage notes (agree or disagree)? Why? @ -[I reviewed and agree with nursing and triage notes] Were old charts reviewed (outside hosp., previous admission, EMS record, old EKG, old radiological studies, urgent care reports/EKG's, care home records)? Report findings @ -[No old charts were reviewed] Differential Diagnosis (chest pain, altered mental status, abdominal pain women, abdominal pain men, vaginal bleeding, weakness, fever, dyspnea, syncope, headache, dizziness, GI bleed, back pain, seizure, CVA, palpatations, mental health, musculoskeletal)? @ -Differential Chest Pain: Stable Angina, Unstable Angina, STEMI, NSTEMI Aortic Dissection, Pneumothorax, Musculoskeletal, Esophageal Spasm GERD, Cholecystitis, Pancreatitis, Zoster, this is not meant to be an all-inclusive list. EKG interpreted by me (3pts min.). @ -[As above] X-rays interpreted by me (1pt min.). @ -Chest x-ray shows no acute abnormality CT interpreted by me (1pt min.). @ -[None done] U/S interpreted by me (1pt. min.). @ -[None done] What testing was considered but not performed or refused? (CT, X-rays, U/S, labs)? Why? @ -[None] What meds were considered but not given or refused? Why? @ -[None] Did you discuss the management of the patient with other professionals (professionals i.e. , PA, RN MEDICAL INPATIENT SERVICES, lab, RT, psych nurse, transition social worker, raw finish mill operator, teacher, inspectors and regulatory officers, child welfare caseworker)? Give summary @ -Patient will be admitted I spoke with the [facility] hospitalist agreed to admit the patient Was smoking cessation discussed for >3mins.? @ -[No] Was critical care preformed (if so, how long)? @ -[No] Were there social determinants of health that impacted care today? How? (Homelessness, low income, unemployed, alcoholism, drug addiction, transportation, low edu. Level, literacy, decrease access to med. care, long-term, rehab)? @ -[No] Was there de-escalation of care discussed even if they declined (Discuss DNR or withdrawal of care, Hospice)? DNR status @ -[No] What co-morbidities impacted this encounter? (DM, HTN, Smoking, COPD, CAD, Ca ncer, CVA, ARF, Chemo, Hep., AIDS, mental health diagnosis, sleep apnea, morbid obesity)? @ -[None] Was patient admitted / discharged? Hospital course, mention meds given and route, prescriptions, significant lab abnormalities, going to OR and other pertinent info. @ -Patient stated she continued to have chest pain throughout her course in the emergency department. I spoke with [facility] hospice agreed to admit the patient admitted the patient I wrote admitting orders Undiagnosed new problem with uncertain prognosis? @ -[No] Drug Therapy requiring intensive monitoring for toxicity (Heparin, Nitro, Insulin, Cardizem)? @ -[No] Were any procedures done? @ -[No] Diagnosis/symptom? @ -Chest pain Acute, or Chronic, or Acute on Chronic? @ -Acute Uncomplicated (without systemic symptoms) or Complicated (systemic symptoms)? @ -Complicated Side effects of treatment? @ -[No] Exacerbation, Progression, or Severe Exacerbation? @ -[No] Poses a threat to life or bodily function? How? (Chest pain, [place], [place], pneumonia, PE, COPD, DKA, ARF, appy, cholecystitis, CVA, Diverticulitis, Homicidal, Suicidal, threat to staff... and all critical care pts) @ -Yes family to an [place] which can lead to end organ dysfunction - Lab Data Result diagrams: 12/27/22 14:32 12/27/22 14:32 Lab Results 12/27/22 12/27/22 12/27/22 Range/Units 14:32 14:32 14:32 WBC 12.8 H (3.8-10.6) k/uL RBC 4.07 (3.80-5.40) m/uL Hgb 11.4 (11.4-16.0) gm/dL Hct 36.4 (34.0-46.0) % MCV 89.5 (80.0-100.0) fL MCH 28.0 (25.0-35.0) pg MCHC 31.3 (31.0-37.0) g/dL RDW 14.6 (11.5-15.5) % Plt Count 291 (150-450) k/uL MPV 7.3 Neutrophils % 70 % Lymphocytes % 18 % Monocytes % 6 % Eosinophils % 4 % Basophils % 0 % Neutrophils # 9.0 H (1.3-7.7) k/uL Lymphocytes # 2.4 (1.0-4.8) k/uL Monocytes # 0.8 (0-1.0) k/uL Eosinophils # 0.5 (0-0.7) k/uL Basophils # 0.0 (0-0.2) k/uL Hypochromasia Slight PT 10.6 (9.0-12.0) sec INR 1.0 (<1.2) APTT 26.4 (22.0-30.0) sec Sodium 136 L (137-145) mmol/L Potassium 4.4 (3.5-5.1) mmol/L Chloride 102 (98-107) mmol/L Carbon Dioxide 22 (22-30) mmol/L Anion Gap 12 mmol/L BUN 15 (7-17) mg/dL Creatinine 0.59 (0.52-1.04) mg/dL Est GFR (CKD-EPI)AfAm >90 (>60 ml/min/1.73 sqM) Est GFR (CKD-EPI)NonAf >90 (>60 ml/min/1.73 sqM) Glucose 71 L (74-99) mg/dL Calcium 9.3 (8.4-10.2) mg/dL Magnesium 2.0 (1.6-2.3) mg/dL Total Bilirubin 0.9 (0.2-1.3) mg/dL AST 25 (14-36) U/L ALT 17 (4-34) U/L Alkaline Phosphatase 57 (38-126) U/L Troponin I (0.000-0.034) ng/mL Total Protein 7.6 (6.3-8.2) g/dL Albumin 4.2 (3.5-5.0) g/dL 12/27/22 Range/Units 14:32 WBC (3.8-10.6) k/uL RBC (3.80-5.40) m/uL Hgb (11.4-16.0) gm/dL Hct (34.0-46.0) % MCV (80.0-100.0) fL MCH (25.0-35.0) pg MCHC (31.0-37.0) g/dL RDW (11.5-15.5) % Plt Count (150-450) k/uL MPV Neutrophils % % Lymphocytes % % Monocytes % % Eosinophils % % Basophils % % Neutrophils # (1.3-7.7) k/uL Lymphocytes # (1.0-4.8) k/uL Monocytes # (0-1.0) k/uL Eosinophils # (0-0.7) k/uL Basophils # (0-0.2) k/uL Hypochromasia PT (9.0-12.0) sec INR (<1.2) APTT (22.0-30.0) sec Sodium (137-145) mmol/L Potassium (3.5-5.1) mmol/L Chloride (98-107) mmol/L Carbon Dioxide (22-30) mmol/L Anion Gap mmol/L BUN (7-17) mg/dL Creatinine (0.52-1.04) mg/dL Est GFR (CKD-EPI)AfAm (>60 ml/min/1.73 sqM) Est GFR (CKD-EPI)NonAf (>60 ml/min/1.73 sqM) Glucose (74-99) mg/dL Calcium (8.4-10.2) mg/dL Magnesium (1.6-2.3) mg/dL Total Bilirubin (0.2-1.3) mg/dL AST (14-36) U/L ALT (4-34) U/L Alkaline Phosphatase (38-126) U/L Troponin I <0.012 (0.000-0.034) ng/mL Total Protein (6.3-8.2) g/dL Albumin (3.5-5.0) g/dL Disposition Clinical Impression: Chest pain Disposition: ADMITTED IP TO THIS [facility] Referrals: Nonstaff,Physician [Primary Care Provider] - 1-2 days Time of Disposition: 16:03
[2022-12-27 14:37] LABS: Basophils % (A) 0 %; Eosinophils # (A) 0.5 k/uL (0-0.7); Eosinophils % (A) 4 %; HCT 36.4 % (34.0-46.0); HGB 11.4 gm/dL (11.4-16.0); Hypochromasia Slight; Lymphocytes # (A) 2.4 k/uL (1.0-4.8); Lymphocytes % (A) 18 %; MCHC 31.3 g/dL (31.0-37.0); MCV 89.5 fL (80.0-100.0); Mean Platelet Volume 7.3; Monocytes # (A) 0.8 k/uL (0-1.0); Monocytes % (A) 6 %; Neutrophils % (A) 70 %; Platelet Count 291 k/uL (150-450); RBC 4.07 m/uL (3.80-5.40); RDW 14.6 % (11.5-15.5); WBC 12.8 k/uL (3.8-10.6)
[2022-12-27 14:49] LABS: Partial Thromboplastin Time 26.4 sec (22.0-30.0); Prothrombin Time 10.6 sec (9.0-12.0)
--- NOTE | 2022-12-27 15:08 | XR ---
EXAMINATION TYPE: XR chest 2V DATE OF EXAM: 12/27/2022 COMPARISON: 05/12/2022 HISTORY: 47-year-old female with chest pain TECHNIQUE: PA and lateral views FINDINGS: The cardiomediastinal silhouette, aorta, and pulmonary vasculature are within normal limits. Lungs an d pleural spaces are clear. IMPRESSION: No acute cardiopulmonary process.
[2022-12-27 15:41] LABS: ALT 17 U/L (4-34); AST 25 U/L (14-36); African American GFR (CKD) >90 (>60 ml/min/1.73 sqM); Albumin 4.2 g/dL (3.5-5.0); Alkaline Phosphatase 57 U/L (38-126); Anion Gap 12 mmol/L; Blood Urea Nitrogen 15 mg/dL (7-17); Calcium 9.3 mg/dL (8.4-10.2); Carbon Dioxide 22 mmol/L (22-30); Chloride 102 mmol/L (98-107); Glucose 71 mg/dL (74-99); Non-African American GFR(CKD) >90 (>60 ml/min/1.73 sqM); Potassium 4.4 mmol/L (3.5-5.1); Sodium 136 mmol/L (137-145); Total Bilirubin 0.9 mg/dL (0.2-1.3); Total Protein 7.6 g/dL (6.3-8.2)
[2022-12-27] MEDS ORDERED: NITROGLYCERIN SL TABS 0.4 MG TAB SUBLINGUAL PRN (16:04)
[2022-12-27] MEDS ORDERED: NON FORMULARY DRUG (Naloxone Hcl [Narcan] 4 MG Each) NASAL PRN (16:55)
[2022-12-27] MEDS ORDERED: ONDANSETRON ODT 8 MG TAB.RAPDIS PO PRN (16:55)
[2022-12-27] MEDS ORDERED: polyethylene glycoL 3350 17 GM POWD.PACK PO PRN (16:55)
[2022-12-27] MEDS: oxyCODONE-APAP 10-325MG 1 EACH TAB PO PRN (18:47)
[2022-12-27] MEDS: NITROGLYCERIN OINT 1 INCH/GM PACKET TOPICAL SCH ×2 (18:48→23:33)
[2022-12-27] MEDS ORDERED: NALOXONE 0.4 MG/ML 1 ML VIAL IVP PRN (21:03)
--- NOTE | 2022-12-27 23:26 | HP ---
HISTORY AND PHYSICAL CHIEF COMPLAINT: Chest pain. HISTORY OF PRESENT ILLNESS: This is a 47-year-old woman with a past medical history of pericarditis, complaining of chest pain, which was felt in the anterior part of the chest with some shortness of breath. The patient came to [facility]. There is no history of any fever, rigors, or chills. The patient also had history of recurrent pericarditis. The EKG showed nonspecific ST-T changes. There is no history of any fever, rigors, or chills at this time. PAST MEDICAL HISTORY: Recurrent pericarditis, history of asthma. Rest of the history and rest of the chart is also reviewed. HOME MEDICATIONS: Reviewed include MiraLAX, dose and rest of medications reviewed. ALLERGIES: Codeine. FAMILY HISTORY: History of chest pain. SOCIAL HISTORY: No history of smoking. Occasional alcohol intake. REVIEW OF SYSTEMS: A 14-point review is negative except as mentioned earlier. PHYSICAL EXAMINATION: VITAL SIGNS: Pulse is 91, blood pressure 103/70, respirations 18. HEENT: Conjunctivae normal. NECK: No JVD. CARDIOVASCULAR: S1, S2 muffled. RESPIRATIONS: Breath sounds diminished at the bases. No rhonchi. ABDOMEN: Soft. LEGS: No edema. NERVOUS SYSTEM: Nonfocal. LABS: EKG reviewed. Otherwise, WBC 12.2. ASSESSMENT: 1. Chest pain, possible pericarditis. 2. History of recurrent bradycardia. 3. History of asthma. 4. Increased WBC. 5. Multiple medical issues. RECOMMENDATIONS: This 47-year-old woman presented with multiple complex medical issues. We will monitor the patient closely. Recommend 2D echo with Doppler. Rule out myocardial infarction. Resume the home medications. Follow closely with Cardiology. Prognosis guarded. Further recommendations to follow. MMODL / IJN: [id number] /
[2022-12-27] MEDS ORDERED: KETOROLAC 15 MG/ML 1 ML VIAL IVP STA (23:51)
[2022-12-28] MEDS: MORPHINE SULFATE 2 MG/ML SYRINGE IVP PRN ×4 (00:38→20:00)
[2022-12-28] MEDS: NITROGLYCERIN OINT 1 INCH/GM PACKET TOPICAL SCH (05:58)
[2022-12-28] MEDS: NON FORMULARY DRUG (Naloxegol Oxalate [Movantik] 25 MG Tablet) PO SCH (08:51)
[2022-12-28] MEDS: CALCIUM CARBONATE 500 MG CHEWABLE PO SCH (08:55)
[2022-12-28] MEDS: MULTIVITAMINS, THERA 1 EACH TAB PO SCH (08:55)
[2022-12-28] MEDS: LORATADINE 10 MG TAB PO SCH (08:55)
[2022-12-28] MEDS: CHOLECALCIFEROL 25 MCG (1000 IU) TABLET PO SCH (08:55)
[2022-12-28] MEDS ORDERED: ASPIRIN 325 MG TAB PO SCH (09:00)
[2022-12-28] MEDS ORDERED: NON FORMULARY DRUG (Vitamin B Complex [Vitamin B Complex] 1 EACH Capsule) PO SCH (09:00)
[2022-12-28 09:59] LABS: Basophils # (A) 0.04 X 10*3/uL (0.00-0.10); Basophils % (A) 0.4 %; Eosinophils # (A) 0.65 X 10*3/uL (0.04-0.35); Eosinophils % (A) 6.2 %; HCT 31.5 % (37.2-46.3); HGB 9.9 d/dL (12.0-15.0); Lymphocytes # (A) 3.02 X 10*3/uL (0.90-5.00); Lymphocytes % (A) 28.7 %; MCH 27.8 pg (27.0-32.0); MCHC 31.4 d/dL (32.0-37.0); MCV 88.5 FL (80.0-97.0); Monocytes # (A) 0.91 X 10*3/uL (0.20-1.00); Monocytes % (A) 8.7 %; NRBC Per 100 WBC 0 X 10*3/uL (0.00-0.01); Neutrophils # (A) 5.87 X 10*3/uL (1.80-7.70); Neutrophils % (A) 55.7 %; Platelet Count 291 X 10*3/uL (140-440); RBC 3.56 X 10*6/uL (4.10-5.20); RDW 14.4 % (11.5-14.5); WBC 10.52 X 10*3/uL (4.50-10.00)
[2022-12-28 10:28] LABS: ALT 11 U/L (8-44); AST 14 U/L (13-35); Albumin 3.7 d/dL (3.8-4.9); Albumin/Globulin Ratio 1.42 Ratio (1.60-3.17); Alkaline Phosphatase 56 U/L (41-126); BUN/Creat Ratio 19.43 Ratio (12.00-20.00); Blood Urea Nitrogen 13.6 mg/dL (9.0-27.0); Calcium 9.2 mg/dL (8.7-10.3); Carbon Dioxide 23.6 mmol/L (21.6-31.8); Chloride 103 mmol/L (96-109); Chol/HDL Ratio 2.77 Ratio; Globulin 2.6 d/dL (1.6-3.3); Glucose 77 mg/dL (70-110); LDL Cholesterol,Calculated 91.8 mg/dL (0.0-131.0); Sodium 137 mmol/L (135-145); Total Bilirubin <0.2 mg/dL (0.3-1.2); Total Protein 6.3 d/dL (6.2-8.2); VLDL Calculation 14.22 mg/dL (5.00-40.00)
--- NOTE | 2022-12-28 10:49 | P.CRDCN ---
History of Present Illness Consult date: 12/28/22 Requesting physician: Juana Sy Reason for Consult (text): chest pain Chief complaint: chest pain History of present illness: This is a pleasant 47-year-old female patient who follows with Dr. Funez in the office. She has a history of recurrent pericarditis. The patient in consultation for chest pain. She was most recently hospitalized for pericarditis in April at which time echocardiogram showed normal LV systolic function with minimal pericardial effusion. Dobutamine stress echo in March showed no evidence of ischemia. She was treated with colchicine. She has been symptom-free since June until a few days ago. She began having intermittent chest discomfort that gradually became more constant. Worse with bending over or any type of activity. Troponins have been negative 3 and EKG is unremarkable. She denies any complaints of shortness of breath, dizziness, ligh theadedness, palpitations or syncope. She's had no edema, orthopnea or PND. Chest x-ray showed no acute cardiopulmonary process. The blood cell count elevated at 12,800, sed rate elevated at 56, CRP 8. She continues to have a constant dull ache in her chest. Past Medical History Past Medical History: Asthma Additional Past Medical History / Comment(s): Asthma, pneumonia recurrent pericarditis History of Any Multi-Drug Resistant Organisms: None Reported Past Surgical History: Hysterectomy Additional Past Surgical History / Comment(s): Hernia surgery, gastric sleeve, tummy tuck, right ankle surgery Past Psychological History: No Psychological Hx Reported Smoking Status: Never smoker Past Alcohol Use History: Occasional Past Drug Use History: None Reported - Past Family History Mother Family Medical History: Chest Pain / Angina Medications and Allergies Home Medications Medication Instructions Recorded Confirmed Type oxyCODONE HCL/ACETAMINOPHEN 1 tab PO QID PRN 02/28/22 12/27/22 History [Percocet 10-325 mg] Albuterol Sulfate [Ventolin HFA] 1 - 2 puff INHALATION RT-QID PRN 05/12/22 12/27/22 History Calcium Carbonate [Calcium] 600 mg PO DAILY 05/12/22 12/27/22 History Cholecalciferol [Vitamin D3 (25 50 mcg PO DAILY 05/12/22 12/27/22 History Mcg = 1000 Iu)] Vitamin B Complex 1 cap PO DAILY 05/12/22 12/27/22 History Cetirizine HCl [Zyrtec] 10 mg PO DAILY 12/27/22 12/27/22 History Daily-Rocco With Folic Acid 1 tab PO DAILY 12/27/22 12/27/22 History Ergocalciferol (Vitamin D2) 1,250 mcg PO MO 12/27/22 12/27/22 History [Drisdol (50,000 Iu)] Naloxegol Oxalate [Movantik] 25 mg PO DAILY 12/27/22 12/27/22 History Naloxone HCl [Narcan] 4 mg NASAL ONCE PRN 12/27/22 12/27/22 History Ondansetron Odt [Zofran Odt] 8 mg PO Q8HR PRN 12/27/22 12/27/22 History Semaglutide [Wegovy] 2.4 mg SQ MO 12/27/22 12/27/22 History polyethylene glycoL 3350 [Miralax] 17 gm PO DAILY PRN 12/27/22 12/27/22 History Allergies Allergy/AdvReac Type Severity Reaction Status Date / Time codeine AdvReac Nausea & Verified 12/27/22 16:22 Vomiting Physical Exam Vitals: Vital Signs Temp Pulse Pulse Resp BP BP Pulse Ox 12/28/22 08:22 98 12/28/22 07:00 98.0 F 89 15 99/62 98 12/28/22 02:18 98.1 F 74 15 110/59 98 12/27/22 19:09 98.2 F 75 16 106/73 96 12/27/22 18:24 98.3 F 75 16 127/87 100 12/27/22 15:54 91 18 103/72 98 12/27/22 13:45 98.9 F 72 18 122/73 100 Intake and Output 12/27/22 12/28/22 12/28/22 22:59 06:59 14:59 Other: Voiding Method Toilet # Voids 2 2 Weight 74.843 kg PHYSICAL EXAMINATION: This is a 47-year-old female in no apparent distress at the time of my examination. HEENT: Head is atraumatic, normocephalic. Pupils are equal, round. Sclerae anicteric. Conjunctivae are clear. Mucous membranes of the mouth are moist. Neck is supple. There is no elevated jugular venous pressure. No carotid bruit is heard. CHEST EXAMINATION: Clear to auscultation bilaterally. No wheezes rales or rh onchi. Respirations even and nonlabored. HEART EXAMINATION: Heart regular, positive S1 and S2. No S3. No S4. No clicks, rubs or murmurs. ABDOMEN: Soft, nontender. Bowel sounds are heard. No organomegaly noted. EXTREMITIES: 2+ peripheral pulses with no evidence of peripheral edema and no calf tenderness noted. NEUROLOGIC EXAMINATION: Patient is awake, alert and oriented x3. Results 12/28/22 05:32 12/28/22 05:32 Cardiac Enzymes 12/27/22 12/27/22 12/27/22 Range/Units 14:32 14:32 17:54 AST 25 (14-36) U/L Troponin I <0.012 <0.012 (0.000-0.034) ng/mL 12/27/22 Range/Units 20:17 AST (14-36) U/L Troponin I <0.012 (0.000-0.034) ng/mL Coagulation 12/27/22 Range/Units 14:32 PT 10.6 (9.0-12.0) sec APTT 26.4 (22.0-30.0) sec CBC 12/27/22 12/28/22 Range/Units 14:32 05:32 WBC 12.8 H 10.52 H (3.8-10.6) k/uL RBC 4.07 3.56 L (3.80-5.40) m/uL Hgb 11.4 9.9 L (11.4-16.0) gm/dL Hct 36.4 31.5 L (34.0-46.0) % Plt Count 291 291 (150-450) k/uL Comprehensive Metabolic Panel 12/27/22 Range/Units 14:32 Sodium 136 L (137-145) mmol/L Potassium 4.4 (3.5-5.1) mmol/L Chloride 102 (98-107) mmol/L Carbon Dioxide 22 (22-30) mmol/L BUN 15 (7-17) mg/dL Creatinine 0.59 (0.52-1.04) mg/dL Glucose 71 L (74-99) mg/dL Calcium 9.3 (8.4-10.2) mg/dL AST 25 (14-36) U/L ALT 17 (4-34) U/L Alkaline Phosphatase 57 (38-126) U/L Total Protein 7.6 (6.3-8.2) g/dL Albumin 4.2 (3.5-5.0) g/dL Current Medications Generic Name Dose Route Start Last Admin Trade Name Freq PRN Reason Stop Dose Admin Aspirin 325 mg 12/28/22 09:00 12/28/22 08:55 Aspirin 325 Mg Tab PO 325 mg DAILY [facility] Administration Calcium Carbonate/Glycine 500 mg 12/28/22 09:00 12/28/22 08:55 Calcium Carbonate 500 Mg Chewable PO 500 mg DAILY [facility] Administration Cholecalciferol 50 mcg 12/28/22 09:00 12/28/22 08:55 Cholecalciferol 25 Mcg (1000 Iu) Tablet PO 50 mcg DAILY [facility] Administration Loratadine 10 mg 12/28/22 09:00 12/28/22 08:55 Loratadine 10 Mg Tab PO 10 mg DAILY [facility] Administration Morphine Sulfate 2 mg 12/27/22 23:50 12/28/22 06:38 Morphine Sulfate 2 Mg/Ml Syringe IVP 2 mg Q4HR PRN Administration Pain/Discomfort Multivitamins 1 each 12/28/22 09:00 12/28/22 08:55 Multivitamins, Thera 1 Each Tab PO 1 each DAILY [facility] Administration Naloxone HCl 0.2 mg 12/27/22 21:03 Naloxone 0.4 Mg/Ml 1 Ml Vial IVP Q2M PRN Opioid Reversal Nitroglycerin 0.4 mg 12/27/22 16:04 Nitroglycerin Sl Tabs 0.4 Mg Tab SUBLINGUAL Q5M PRN Chest Pain Nitroglycerin 1 inch 12/27/22 18:00 12/28/22 05:58 Nitroglycerin Oint 1 Inch/Gm Packet TOPICAL 1 inch Q6HR [facility] Administration Non-Formulary Medication 2.4 mg 12/29/22 09:00 Semaglutide [Wegovy] SQ MO [facility] Non-Formulary Medication 25 mg 12/28/22 09:00 12/28/22 08:51 Naloxegol Oxalate [Movantik] PO Not Given DAILY [facility] Ondansetron HCl 8 mg 12/27/22 16:55 Ondansetron Odt 8 Mg Tab.Rapdis PO Q8HR PRN Nausea Oxycodone/Acetaminophen 1 each 12/27/22 16:55 07/15/23 18:47 Oxycodone-Apap 10-325mg 1 Each Tab PO 1 each QID PRN Administration Pain Polyethylene Glycol 17 gm 12/27/22 16:55 Polyethylene Glycol 3350 17 Gm Powd.Pack PO DAILY PRN Constipation Intake and Output 12/27/22 12/28/22 12/28/22 22:59 06:59 14:59 Other: Voiding Method Toilet # Voids 2 2 Weight 74.843 kg 12/28/22 05:32 12/27/22 14:32 EKG Interpretations (text) Sinus rhythm Assessment and Plan Assessment: #1 chest discomfort, acute coronary event has been ruled out, troponins negative 3 and EKG unremarkable #2 recurrent pericarditis #3 chronic ankle pain Plan: From cardiology perspective obtain a 2-D echo with Doppler study to assess cardiac structure and function as well as to assess for worsening pericardial effusion. We will start Colchicine. Discontinue aspirin. Continue to monitor the patient and provide further recommendations accordingly. BOBBIN DISKER note has been reviewed, I agree with a documented findings and plan of care. Patient was seen and examined.
[2022-12-28] MEDS: COLCHICINE 0.6 MG EACH PO SCH ×2 (11:29→20:01)
[2022-12-28 14:41] VITALS: RESP 16
[2022-12-28] MEDS: oxyCODONE-APAP 10-325MG 1 EACH TAB PO PRN (22:46)
[2022-12-29] MEDS: MORPHINE SULFATE 2 MG/ML SYRINGE IVP PRN ×2 (00:41→07:41)
--- NOTE | 2022-12-29 00:57 | PN ---
PROGRESS NOTE DATE OF SERVICE: 12/28/2022 SUBJECTIVE: This is a 47-year-old woman who was admitted with chest pain and had history of ongoing recurrent pericarditis for the last 1 year almost. ESR is elevated. No chest pain or palpitation. Pericarditis is of undetermined etiology. OBJECTIVE: VITAL SIGNS: Pulse 85, blood pressure 97/60, respirations 16. CHEST: Clear to auscultation. CARDIOVASCULAR: S1, S2. ABDOMEN: Soft. NERVOUS SYSTEM: Nonfocal. LABORATORY DATA: WBC 10.2. Rest of the labs are noted. ASSESSMENT: 1. Chest pain, possible recurrent acute pericarditis. 2. History of recurrent pericarditis, undetermined etiology. 3. History of asthma. 4. Increased WBC. 5. Multiple medical issues. RECOMMENDATIONS: Recommend to continue current management and treatment. Otherwise, I would recommend repeat labs. Symptomatic treatment. Await 2D echo with Doppler. Increase ambulation. The patient might be a candidate of colchicine if 2D echo shows any evidence of pericarditis or pericardial effusion. MMODL / IJN: [id number] /
[2022-12-29] MEDS: MULTIVITAMINS, THERA 1 EACH TAB PO SCH (07:41)
[2022-12-29] MEDS: CHOLECALCIFEROL 25 MCG (1000 IU) TABLET PO SCH (07:42)
[2022-12-29] MEDS: COLCHICINE 0.6 MG EACH PO SCH (07:42)
[2022-12-29] MEDS: CALCIUM CARBONATE 500 MG CHEWABLE PO SCH (07:42)
[2022-12-29] MEDS: LORATADINE 10 MG TAB PO SCH (07:42)
[2022-12-29] MEDS: NON FORMULARY DRUG (Naloxegol Oxalate [Movantik] 25 MG Tablet) PO SCH (07:43)
[2022-12-29] MEDS ORDERED: NON FORMULARY DRUG (Semaglutide [Wegovy] 2.4 MG/0.75 ML Each) SQ SCH (09:00)
[2022-12-29] MEDS ORDERED: IBUPROFEN 600 MG TAB PO SCH (09:30)
[2022-12-29] MEDS ORDERED: PANTOPRAZOLE 40 MG TABLET PO SCH (09:30)
[2022-12-29 09:50] LABS: Basophils # (A) 0.03 X 10*3/uL (0.00-0.10); Basophils % (A) 0.3 %; Eosinophils # (A) 0.46 X 10*3/uL (0.04-0.35); Eosinophils % (A) 4.3 %; HCT 32.2 % (37.2-46.3); HGB 9.7 d/dL (12.0-15.0); Lymphocytes # (A) 2.47 X 10*3/uL (0.90-5.00); Lymphocytes % (A) 23.1 %; MCH 27.5 pg (27.0-32.0); MCHC 30.1 d/dL (32.0-37.0); MCV 91.2 FL (80.0-97.0); Mean Platelet Volume 10.5 FL (9.5-12.2); Monocytes # (A) 1.05 X 10*3/uL (0.20-1.00); Monocytes % (A) 9.8 %; NRBC Per 100 WBC 0 X 10*3/uL (0.00-0.01); Neutrophils # (A) 6.66 X 10*3/uL (1.80-7.70); Neutrophils % (A) 62.2 %; Platelet Count 296 X 10*3/uL (140-440); RBC 3.53 X 10*6/uL (4.10-5.20); RDW 14.6 % (11.5-14.5)
[2022-12-29 10:04] LABS: BUN/Creat Ratio 15.25 Ratio (12.00-20.00); Blood Urea Nitrogen 12.2 mg/dL (9.0-27.0); Carbon Dioxide 25.1 mmol/L (21.6-31.8); Chloride 101 mmol/L (96-109); Glucose 71 mg/dL (70-110); Potassium 4.6 mmol/L (3.5-5.5); Sodium 137 mmol/L (135-145)
--- NOTE | 2022-12-29 11:21 | P.PN ---
Subjective HISTORY OF PRESENT ILLNESS: This is a 47-year-old female who follows in the office with Dr. Rosenthal. Patient presented to the hospital chief complaint of chest pain. The patient has a history of recurrent pericarditis. Patient examined this morning at the bedside. Patient continues to report chest discomfort. She states the pain is worse with any type of movement or deep inspiration. She has been started on colchicine. She states that she was on colchicine in the past but is no longer taking this on an outpatient basis. Vital signs are stable. PHYSICAL EXAM: VITAL SIGNS: Reviewed. GENERAL: Well-developed in no acute distress. NECK: Supple. No JVD or thyromegaly LUNGS: Respirations even and unlabored. Lungs essentially clear to auscultation bilaterally. HEART: Regular rate and rhythm. S1 and S2 heard. EXTREMITIES: Normal range of motion. No clubbing or cyanosis. Peripheral pulses intact. No lower extremity edema ASSESSMENT: Chest pain, acute cardiac syndrome ruled out Recurrent pericarditis Chronic ankle pain PLAN: 2-D echo has been ordered. Await results Continue colchicine 0.6 mg twice a day Add Motrin 600 mg 3 times a day Add omeprazole 40 mg daily Patient may be discharged home this afternoon pending her pain is controlled and results of 2-D echo Patient to follow up post discharge with Dr. Rosenthal Nurse practitioner note has been reviewed by physician. Signing provider agrees with the documented findings, assessment, and plan of care. Dr. Miller addendum Patient was personally seen by me. The case was discussed in detail with the nurse practitioner who helped with the above documentation. I agree with this assess and plan. Mortin 600 mg TID for 1 week. After one week, reduce to 600mg BID and then after second week, reduce to 600mg daily for 1-2 weeks. Need outpatient followup for ESR and CRP check. Echo was reviewed in evening and was found to be normal. Please refer to detailed report if needed. Donot stop colchicine before 3 months. Continue protonix Objective - Vital Signs Vital signs: Vital Signs Temp 98.0 F 12/29/22 07:15 Pulse 62 12/29/22 07:15 Resp 16 12/29/22 07:15 BP 98/61 12/29/22 07:15 Pulse Ox 96 12/29/22 08:52 FiO2 Intake & Output 12/28/22 12/29/22 12/29/22 18:59 06:59 18:59 Intake Total 0 Balance 0 Intake: Oral 0 Other: Voiding Method Toilet # Voids 4 2 # Bowel Movements 0 - Labs CBC & Chem 7: 12/29/22 05:19 12/29/22 05:19 Labs: Abnormal Lab Results - Last 24 Hours (Table) 12/29/22 Range/Units 05:19 WBC 10.70 H (4.50-10.00) X 10*3/uL RBC 3.53 L (4.10-5.20) X 10*6/uL Hgb 9.7 L (12.0-15.0) d/dL Hct 32.2 L (37.2-46.3) % MCHC 30.1 L (32.0-37.0) d/dL RDW 14.6 H (11.5-14.5) % Monocytes # 1.05 H (0.20-1.00) X 10*3/uL Eosinophils # 0.46 H (0.04-0.35) X 10*3/uL
[2022-12-29] MEDS: oxyCODONE-APAP 10-325MG 1 EACH TAB PO PRN (11:24)
[2022-12-29 14:19] VITALS: BP 107/70; PULSE 64; TEMP 98.4
--- NOTE | 2022-12-29 14:35 | CA ---
Transthoracic Echo Report Name: Cesar Malik Age: 47 Gender: F : 1975 Exam Date: 12/29/2022 07:53 Exam Location: [place] [facility] Ht (in): 59 Wt (lb): 165 Ordering Physician: Juana yS MD Attending/Referring Phys: Powder Hand Lelo Spangler RDCS Procedure CPT: Indications: pericarditis Cardiac Hx: Technical Quality: Good Contrast 1: Total Dose (mL): Contrast 2: Total Dose (mL): MEASUREMENTS (Male / Female) Normal Values 2D ECHO LV Diastolic Diameter PLAX 4.0 cm 4.2 - 5.9 / 3.9 - 5.3 cm LV Systolic Diameter PLAX 2.5 cm IVS Diastolic Thickness 0.9 cm 0.6 - 1.0 / 0.6 - 0.9 cm LVPW Diastolic Thickness 0.8 cm 0.6 - 1.0 / 0.6 - 0.9 cm LV Relative Wall Thickness 0.4 RV Internal Dim ED PLAX 2.9 cm LA Systolic Diameter LX 3.0 cm 3.0 - 4.0 / 2.7 - 3.8 cm LV Diastolic Volume MOD 4C 68.3 cm??? LV Systolic Volume MOD 4C 34.6 cm??? LV Ejection Fraction MOD 4C 49.3 % LV Cardiac Index MOD 4C 1590.8 cm???/min???m??? LV Diastolic Length 4C 7.6 cm LV Systolic Length 4C 6.1 cm LV Diastolic Volume MOD 2C 61.1 cm??? LV Systolic Volume MOD 2C 25.7 cm??? LV Ejection Fraction MOD 2C 57.8 % LV Cardiac Index MOD 2C 1667.4 cm???/min???m??? LV Diastolic Length 2C 7.7 cm LV Systolic Length 2C 6.0 cm LA Volume 36.1 cm??? 18 - 58 / 22 - 52 cm??? M-MODE Aortic Root Diameter MM 2.7 cm MV E Point Septal Separation 0.4 cm AV Cusp Separation MM 2.0 cm DOPPLER AV Peak Velocity 128.4 cm/s AV Peak Gradient 6.6 mmHg MV Area PHT 3.8 cm??? Mitral E Point Velocity 82.0 cm/s Mitral A Point Velocity 73.4 cm/s Mitral E to A Ratio 1.1 MV Deceleration Time 201.3 ms MV E' Velocity 9.4 cm/s Mitral E to MV E' Ratio 8.7 TR Peak Velocity 185.9 cm/s TR Peak Gradient 13.8 mmHg Right Ventricular Systolic Press 18.7 mmHg FINDINGS Left Ventricle Left ventricular ejection fraction is estimated at 55-60 %. Left ventricular cavity size normal. Left ventricular wall thickness normal. Normal left ventricular wall motion. Right Ventricle Normal right ventricular size and function. Right ventricular systolic pressure within normal limits. Right Atrium Normal right atrial size. Left Atrium Normal left atrial size. Mitral Valve Structurally normal mitral valve. Trace mitral regurgitation. Aortic Valve Trileaflet aortic valve. No aortic valve stenosis or regurgitation. Tricuspid Valve Structurally normal tricuspid valve. Trace to mild tricuspid regurgitation. Pulmonic Valve Structurally normal pulmonic valve. Trace pulmonic regurgitation. Pericardium Normal pericardium. No pericardial effusion. Aorta Normal size aortic root and proximal ascending aorta. CONCLUSIONS Normal LV size, wall thickness and systolic function. Estimated LVEF is 55-60% No regional wall motion abnormality. Normal diastolic filling pattern No significant medical dysfunction No pericardial effusion or thickening pericardium appreciated. No significant difference when compared to prior echo from 02/2022 Previewed by: Dr Kannan Miller (Electronically Signed) Final Date: 29 December 2022 14:34
[2022-12-29] MEDS ORDERED: ERGOCALCIFEROL 1,250 MCG (50,000 IU) CAPSULE PO SCH (16:55)
--- NOTE | 2023-01-02 09:47 | P.DS ---
Providers Date of admission: 12/27/22 16:05 Expected date of discharge: 12/29/22 Attending physician: Juana Sy Consults: 12/27/22 16:04 Consult Physician Urgent Consulting Provider: [facility] Consult Reason/Comments: Chest pain Do you want consulting provider notified?: Yes Primary care physician: Physician Nonstaff Hospital Course: Final diagnosis Chest pain, rule out ACS, possible recurrent acute pericarditis History of recurrent pericarditis, undetermined etiology History of asthma, not in exacerbation Increased WBC possibly reactive Discharge disposition Patient is being discharged in a stable condition with guarded prognosis to home. Patient will follow-up with Dr. Stanton in the outpatient setting upon discharge. Patient is to continue with colchicine and current medications per cardiology and close outpatient follow-up with Dr. Rosenthal as scheduled. Total time taken is greater than 35 minutes. Hospital course This is a 47-year-old female who was recently admitted with chest pain and history of ongoing recurrent pericarditis. Patient follows Dr. Rosenthal in the outpatient setting and has been seen and evaluated by cardiology here started on colchicine along with Motrin and has been instructed to follow-up outpatient. Patient has been cleared by cardiology for discharge today. Please refer to cardiology notes for further HPI. Currently no reports of worsening chest pain and reports it is intermittent, shortness of breath, or palpitations. Patient is afebrile. No reports of nausea or vomiting and patient is tolerating diet. Patient will be discharged home today. Physical exam: Gen: This is a 47-year-old female who is awake, alert and oriented 3, well- developed, well-nourished, obese HEENT: Head is atraumatic, normocephalic. Pupils equal, round. Sclerae is anicteric. NECK: Supple. No JVD. No lymphadenopathy. No thyromegaly. LUNGS: Clear to auscultation. No wheezes or rhonchi. No intercostal retractions. HEART: S1, S2 are muffled ABDOMEN: Soft. Bowel sounds are present. No masses. No tenderness. EXTREMITIES: No pedal edema. No calf tenderness. NEUROLOGICAL: Patient is awake, alert and oriented x3. Cranial nerves 2 through 12 are grossly intact. Please refer to medication reconciliation sheet for a list of medications. The impression and plan of care has been dictated by Susie Blank, Nurse Practitioner as directed. Dr. John MD I have performed a history and examination and MDM of this patient, discussed the same with the dictator, and agree with the dictator's assessment and plan as written ,documented as a scribe. Based on total visit time, I have performed more than 50% of the visit. Patient Condition at Discharge: Good Plan - Discharge Summary Discharge Rx Participant: No New Discharge Prescriptions: New Colchicine [Colcrys] 0.6 mg PO BID 30 Days #60 each Ibuprofen [Motrin] 600 mg PO TID #60 tab Pantoprazole [Protonix] 40 mg PO AC-BRKFST 30 Days #30 tab Continue Albuterol Sulfate [Ventolin HFA] 1 - 2 puff INHALATION RT-QID PRN PRN Reason: Shortness Of Breath Calcium Carbonate [Calcium] 600 mg PO DAILY Cetirizine HCl [Zyrtec] 10 mg PO DAILY Ergocalciferol (Vitamin D2) [Drisdol (50,000 Iu)] 1,250 mcg PO MO Naloxegol Oxalate [Movantik] 25 mg PO DAILY oxyCODONE HCL/ACETAMINOPHEN [Percocet 10-325 mg] 1 tab PO QID PRN PRN Reason: Pain Cholecalciferol [Vitamin D3 (25 Mcg = 1000 Iu)] 50 mcg PO DAILY Vitamin B Complex 1 cap PO DAILY Ondansetron Odt [Zofran ODT] 8 mg PO Q8HR PRN PRN Reason: Nausea Daily-Rocco With Folic Acid 1 tab PO DAILY Naloxone HCl [Narcan] 4 mg NASAL ONCE PRN PRN Reason: OVERDOSE Semaglutide [Wegovy] 2.4 mg SQ MO polyethylene glycoL 3350 [Miralax] 17 gm PO DAILY PRN PRN Reason: Constipation Discharge Medication List oxyCODONE HCL/ACETAMINOPHEN [Percocet 10-325 mg] 1 tab PO QID PRN 02/28/22 [History] Albuterol Sulfate [Ventolin HFA] 1 - 2 puff INHALATION RT-QID PRN 05/12/22 [History] Calcium Carbonate [Calcium] 600 mg PO DAILY 05/12/22 [History] Cholecalciferol [Vitamin D3 (25 Mcg = 1000 Iu)] 50 mcg PO DAILY 05/12/22 [History] Vitamin B Complex 1 cap PO DAILY 05/12/22 [History] Cetirizine HCl [Zyrtec] 10 mg PO DAILY 12/27/22 [History] Daily-Rocco With Folic Acid 1 tab PO DAILY 12/27/22 [History] Ergocalciferol (Vitamin D2) [Drisdol (50,000 Iu)] 1,250 mcg PO MO 12/27/22 [History] Naloxegol Oxalate [Movantik] 25 mg PO DAILY 12/27/22 [History] Naloxone HCl [Narcan] 4 mg NASAL ONCE PRN 12/27/22 [History] Ondansetron Odt [Zofran ODT] 8 mg PO Q8HR PRN 12/27/22 [History] Semaglutide [Wegovy] 2.4 mg SQ MO 12/27/22 [History] polyethylene glycoL 3350 [Miralax] 17 gm PO DAILY PRN 12/27/22 [History] Colchicine [Colcrys] 0.6 mg PO BID 30 Days #60 each 12/29/22 [Rx] Ibuprofen [Motrin] 600 mg PO TID #60 tab 12/29/22 [Rx] Pantoprazole [Protonix] 40 mg PO AC-BRKFST 30 Days #30 tab 12/29/22 [Rx] Follow up Appointment(s)/Referral(s): Jones Rosenthal MD [STAFF PHYSICIAN] - 01/07/23 2:45 pm DavidPhysician [Primary Care Provider] - 1-2 days Patient Instructions/Handouts: Chest Pain (DC) Activity/Diet/Wound Care/Special Instructions: Activity Limited until follow-up Follow-up with primary care provider on discharge Follow-up with cardiology in one week Continue taking medications as prescribed Discharge Disposition: HOME SELF-CARE
== END 2022-12-29 16:07 | disposition home or self-care (01) ==
LOC: EC 13:43 → 6NMEDSUR 16:04 → OBSVTOIN 16:05 → INTOOBSV 16:05 → 6NMEDSUR 16:43 → UNDODISIN 12-29 16:07
PROVIDERS: ADMIT Hospitalist; ATTEND Hospitalist
DX: R07.89 Other chest pain (principal); I31.9 Disease of pericardium, unspecified; G89.29 Other chronic pain; M25.579 Pain in unspecified ankle and joints of unspecified foot; D72.829 Elevated white blood cell count, unspecified; J45.909 Unspecified asthma, uncomplicated; Z79.899 Other long term (current) drug therapy; Z88.5 Allergy status to narcotic agent
CPT/HCPCS: 96376 ×2; 96374; 96375; 99285; 36415; 94760 ×2; 93005; 93306; 80061; 80053 ×2; 80048; 85652; 83735; 84484; 85025 ×3; 85610; 85730; 86140; 71046; G0378 ×3; J2270 ×2; J1885